=== PATIENT | male | born 1960 | race Caucasian/White ===

== ENCOUNTER 2017-12-08 01:51 | Emergency (ER) | payer MEDICARE, SELFPAY ==
[2017-12-08 01:55] VITALS: BP 163/93; PULSE 114; RESP 24; TEMP 37.2; O2SAT 96; BMI 44.2
--- NOTE | 2017-12-08 02:10 | XR_ITS ---
XR chest 2V HISTORY: ITS.REASON: SOB, COUGH ORDERING PHYSICIAN: Ahmet Palencia MD PATIENT AGE: 57 years COMPARISON: 05/27/2017 FINDINGS: The cardiomediastinal silhouette and pulmonary vascularity are within normal limits. No lobar consolidation or collapse. There is COPD with chronic change. Linear density present in the left lung base consistent with scarring. Left hilum is slightly prominent but is similar compared to previous exams. There is scarring in the anterior clear space. No acute bony anomalies. There is mild kyphosis of the thoracic spine with multiple chronic wedge changes. IMPRESSION: 1. No acute finding. 2. COPD with fibrotic changes as described above
[2017-12-08 02:36] LABS: Basophils # 0.1 K/mm3 (0-0.2); Basophils % 0.9 % (0.1-2.0); Eosinophils % 9.8 % (0.1-12.0); Hematocrit 45.1 % (42.0-52.0); Hemoglobin 15.1 g/dL (14.1-18.0); Lymphocytes # 2.7 K/mm3 (0.7-4.5); Lymphocytes % 27.2 K/mm3 (10-50); Mean Corpuscular HGB Conc 33.5 g/dL (31.8-35.4); Mean Corpuscular Hemoglobin 30.2 pg (27.0-31.2); Mean Platelet Volume 7.4 fl (7.4-10.4); Monocytes # 0.6 K/mm3 (0.1-1.0); Monocytes % 6.2 % (1.7-9.3); Neutrophils # 5.7 K/mm3 (1.8-7.8); Neutrophils % 55.9 % (37.0-80.0); Platelet Count 220 K/mm3 (142-424); Red Blood Count 5.01 M/mm3 (4.60-6.20); Red Cell Distribution Width 14.7 % (11.5-17.5); White Blood Count 10.1 K/mm3 (4.8-10.8)
[2017-12-08 02:52] LABS: Lactic Acid 2.4 mmol/L (0.4-2.0)
[2017-12-08 03:02] LABS: Alanine Aminotransferase 24 U/L (12-78); Albumin Level 3.1 gm/dL (3.4-5.0); Albumin/Globulin Ratio 0.7 (1.1-1.8); Alkaline Phosphatase 126 U/L (46-116); Anion Gap 13.5 mEq/L (5-15); Aspartate Amino Transferase 12 U/L (15-37); Bilirubin,Total 0.5 mg/dL (0.2-1.0); Blood Urea Nitrogen 8 mg/dL (7-18); CKMB Relative Index 0.4 U/L (0-4.0); Calcium 8.4 mg/dL (8.5-10.1); Carbon Dioxide 24 mmol/L (21.0-32.0); Chloride 101 mmol/L (98-107); Creatine Kinase 233 U/L (39-308); Creatine Kinase MB 0.9 mg/ml (0.0-3.6); Creatinine Clearance Estimated 86 mL/min (0-300); Creatinine,Serum 1.13 mg/dL (0.70-1.30); Estimated Glomerular Filt Rate 67 ml/min (>60); GFR (African American) 81 ML/MIN (>60); Globulin 4.2 gm/dl (1.3-3.2); Glucose 376 mg/dL (74-106); Potassium 3.5 mmoL/L (3.5-5.1); Sodium 135 mmol/L (136-145); Total Protein,Serum 7.3 gm/dL (6.4-8.2); Troponin I < 0.02 ng/ml (0.00-0.06)
--- NOTE | 2017-12-08 03:34 | HMH.EDSOB ---
ED Disposition Clinical Impression: Bronchitis Disposition: Home, Self-Care Condition on Discharge: Good Instructions: DI for Cough -- Adult Additional Instructions: see pcp for suzy singh Prescriptions: Azithromycin [Zithromax 250mg tab] 250 mg PO DIRECTED #6 tab Benzonatate [Tessalon Perle 100mg Cap] 100 mg PO TID #30 cap - Critical Care Critical Care Time: No Attestation: On 12/08/17, the high probability of a clinically significant, sudden or life threatening deterioration of the following system(s) required my full and direct attention, intervention and personal management. The time I documented below is in addition to time spent performing reported procedures but includes the following listed in this critical care notation. Medical Decision Making - Medical Records Medical records reviewed: Yes: I reviewed the patient's medical records. Vital Signs: 12/08/17 01:55 Temperature 98.9 F Temperature Source Oral Pulse Rate [Right Brachial] 114 H Respiratory Rate 24 Blood Pressure [Right Arm] 163/93 Blood Pressure Mean [Right Arm] 116 Blood Pressure Source [Right Arm] Automatic Cuff Blood Pressure Position [Right Arm] Supine 02 Sat by Pulse Oximetry 96 Oxygen Delivery Method Room Air - Lab Data Lab results reviewed: Yes: I reviewed the patient's lab results. Lab Results 12/08/17 02:25: WBC 10.1, RBC 5.01, Hgb 15.1, Hct 45.1, MCV 90.0, MCH 30.2, MCHC 33.5, RDW 14.7, Plt Count 220, MPV 7.4, Neut % (Auto) 55.9, Lymph % (Auto) 27.2, [place] % (Auto) 6.2, Eos % (Auto) 9.8, Baso % (Auto) 0.9, Neut # (Auto) 5.7, Lymph # (Auto) 2.7, [place] # (Auto) 0.6, Eos # (Auto) 1.0 H, Baso # (Auto) 0.1 12/08/17 02:25: Sodium 135 L, Potassium 3.5, Chloride 101, Carbon Dioxide 24, Anion Gap 13.5, BUN 8, Creatinine 1.13, Estimated Creat Clear 86, Estimated GFR 67, Est GFR ( Amer) 81, Glucose 376 H, Calcium 8.4 L, Total Bilirubin 0.5, AST 12 L, ALT 24, Alkaline Phosphatase 126 H, Total Creatine Kinase 233, CK-MB (CK-2) 0.9, CK-MB (CK-2) Rel Index 0.4, Troponin I < 0.02, Total Protein 7.3, Albumin 3.1 L, Globulin 4.2 H, Albumin/Globulin Ratio 0.7 L 12/08/17 02:25: Influenza Type A Ag Negative, Influenza Type B Ag Negative 12/08/17 02:25: Lactic Acid 2.4 H Result diagrams: 12/08/17 02:25 12/08/17 02:25 Orders (Tests/Meds): ORDERS Category Date Time Status Chest XR 2 view (NOT portable) [XR chest 2V] Stat Exams 12/08/17 02:10 Taken Blood Culture Stat Micro 12/08/17 02:25 Received ECG Request by /Elise Stat Y 12/08/17 02:08 Ordered - Radiology Data #1 Image(s): Chest Image Reviewed: Yes I reviewed the patient's radiology image Preliminary Findings: Abnormal (cm) - ECG Data Tracing #1 I reviewed this ECG and interpreted as documented below: Normal Sinus Rhythm: Yes Ischemic changes: non-specific ST-T wave changes - Ahsan Inquiry Pt receiving controlled substance: No Resp/SOB HPI - General Chief Complaint: Shortness of Breath/Dyspnea Stated Complaint: SOA,Congested,Fever,Weak Time Seen by Provider: 12/08/17 03:34 Mode of Arrival: Family Vehicle Source of Information: Patient, Medical Record Limitations: No Limitations Description of Symptoms (Recalled from ER Triage Doc. 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
--- NOTE | 2017-12-08 03:37 | ED_ITS ---
ED Disposition Clinical Impression: Bronchitis Disposition: Home, Self-Care Condition on Discharge: Good Instructions: DI for Cough -- Adult Additional Instructions: see pcp for suzy singh Prescriptions: Azithromycin [Zithromax 250mg tab] 250 mg PO DIRECTED #6 tab Benzonatate [Tessalon Perle 100mg Cap] 100 mg PO TID #30 cap - Critical Care Critical Care Time: No Attestation: On 12/08/17, the high probability of a clinically significant, sudden or life threatening deterioration of the following system(s) required my full and direct attention, intervention and personal management. The time I documented below is in addition to time spent performing reported procedures but includes the following listed in this critical care notation. Medical Decision Making - Medical Records Medical records reviewed: Yes: I reviewed the patient's medical records. Vital Signs: 12/08/17 01:55 Temperature 98.9 F Temperature Source Oral Pulse Rate [Right Brachial] 114 H Respiratory Rate 24 Blood Pressure [Right Arm] 163/93 Blood Pressure Mean [Right Arm] 116 Blood Pressure Source [Right Arm] Automatic Cuff Blood Pressure Position [Right Arm] Supine 02 Sat by Pulse Oximetry 96 Oxygen Delivery Method Room Air - Lab Data Lab results reviewed: Yes: I reviewed the patient's lab results. Lab Results 12/08/17 02:25: WBC 10.1, RBC 5.01, Hgb 15.1, Hct 45.1, MCV 90.0, MCH 30.2, MCHC 33.5, RDW 14.7, Plt Count 220, MPV 7.4, Neut % (Auto) 55.9, Lymph % (Auto) 27.2, [place] % (Auto) 6.2, Eos % (Auto) 9.8, Baso % (Auto) 0.9, Neut # (Auto) 5.7 , Lymph # (Auto) 2.7, [place] # (Auto) 0.6, Eos # (Auto) 1.0 H, Baso # (Auto) 0.1 12/08/17 02:25: Sodium 135 L, Potassium 3.5, Chloride 101, Carbon Dioxide 24, Anion Gap 13.5, BUN 8, Creatinine 1.13, Estimated Creat Clear 86, Estimated GFR 67, Est GFR ( Amer) 81, Glucose 376 H, Calcium 8.4 L, Total Bilirubin 0.5 , AST 12 L, ALT 24, Alkaline Phosphatase 126 H, Total Creatine Kinase 233, CK- MB (CK-2) 0.9, CK-MB (CK-2) Rel Index 0.4, Troponin I < 0.02, Total Protein 7.3 , Albumin 3.1 L, Globulin 4.2 H, Albumin/Globulin Ratio 0.7 L 12/08/17 02:25: Influenza Type A Ag Negative, Influenza Type B Ag Negative 12/08/17 02:25: Lactic Acid 2.4 H Result diagrams: 12/08/17 02:25 12/08/17 02:25 Orders (Tests/Meds): ORDERS Category Date Time Status Chest XR 2 view (NOT portable) [XR chest 2V] Stat Exams 12/08/17 02:10 Taken Blood Culture Stat Micro 12/08/17 02:25 Received ECG Request by /Elise Stat Y 12/08/17 02:08 Ordered - Radiology Data #1 Image(s): Chest Image Reviewed: Yes I reviewed the patient's radiology image Preliminary Findings: Abnormal (cm) - ECG Data Tracing #1 I reviewed this ECG and interpreted as documented below: Normal Sinus Rhythm: Yes Ischemic changes: non-specific ST-T wave changes - Ahsan Inquiry Pt receiving controlled substance: No Resp/SOB HPI - General Chief Complaint: Shortness of Breath/Dyspnea Stated Complaint: SOA,Congested,Fever,Weak Time Seen by Provider: 12/08/17 03:34 Mode of Arrival: Family Vehicle Source of Information: Patient, Medical Record Limitations: No Limitations Description of Symptoms (Recalled from ER Triage Doc. 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
[2017-12-08 03:45] VITALS: BP 128/50; PULSE 97; RESP 20; O2SAT 92
[2017-12-08 04:23] VITALS: BP 121/69; PULSE 99; RESP 20; TEMP 37; O2SAT 93
[2017-12-08 05:22] LABS: Reflex Lactic Add Lactic Reflex
== END 2017-12-08 04:31 | disposition home or self-care (01) ==
PROVIDERS: Emergency Provider Emergency Medicine; Family Provider Nurse Practitioner Family
DX: J20.9 Acute bronchitis, unspecified (principal); E11.9 Type 2 diabetes mellitus without complications; Z79.4 Long term (current) use of insulin; Z79.84 Long term (current) use of oral hypoglycemic drugs
CPT/HCPCS: 71046; 80053; 82550; 82553; 83605; 84484; 85025; 87040; 87275; 87276; 93005; 93041; 96365; 99284

== ENCOUNTER → 2017-12-14 15:02 | Outpatient (REF) | payer MEDICARE, SELFPAY ==
[2017-12-14 19:27] LABS: Amphetamine/Metha Screen,Urine Negative ng/mL (<1000); Barbiturates Screen,Urine Negative ng/mL (<200); Benzodiazepines Screen,Urine Negative ng/mL (200); Cannabinoid Screen,Urine Negative ng/mL (<50); Cocaine Screen,Urine Negative ng/g (<300); Methadone Screen,Urine Negative ng/mL (<300); Opiate Screen,Urine Negative ng/mL (<300); Phencyclidine Screen,Urine Negative ng/mL (<25)
== END ==
LOC: LAB 15:02
PROVIDERS: Visit Provider Nurse Practitioner Family
DX: Z79.899 Other long term (current) drug therapy (principal); E11.9 Type 2 diabetes mellitus without complications
CPT/HCPCS: 80305; 82043

== ENCOUNTER → 2018-03-17 16:08 | Outpatient (CLI) | payer MEDICARE, MEDICAID, SELFPAY ==
[2018-03-17 17:41] LABS: Amphetamine/Metha Screen,Urine Negative ng/mL (<1000); Barbiturates Screen,Urine Negative ng/mL (<200); Benzodiazepines Screen,Urine Negative ng/mL (200); Cannabinoid Screen,Urine Negative ng/mL (<50); Cocaine Screen,Urine Negative ng/g (<300); Methadone Screen,Urine Negative ng/mL (<300); Opiate Screen,Urine Negative ng/mL (<300); Phencyclidine Screen,Urine Negative ng/mL (<25)
== END ==
PROVIDERS: Visit Provider Nurse Practitioner Family
DX: Z79.899 Other long term (current) drug therapy (principal)
CPT/HCPCS: 80305

== ENCOUNTER → 2018-05-17 18:30 | Outpatient (CLI) | payer MEDICARE, MEDICAID, SELFPAY | PROVIDERS: Visit Provider Nurse Practitioner Family | DX: E11.59 Type 2 diabetes mellitus with other circulatory complications (principal) ==

== ENCOUNTER → 2018-09-14 18:07 | Outpatient (CLI) | payer MEDICARE, MEDICAID, SELFPAY ==
[2018-09-14 18:51] LABS: Basophils # 0.1 K/mm3 (0-0.2); Basophils % 0.9 % (0.1-2.0); Eosinophils # 0.3 K/mm3 (0.0-0.4); Eosinophils % 3.5 % (0.1-12.0); Hematocrit 47.5 % (42.0-52.0); Hemoglobin 15.2 g/dL (14.1-18.0); Lymphocytes # 2.6 K/mm3 (0.7-4.5); Mean Corpuscular HGB Conc 31.9 g/dL (31.8-35.4); Mean Corpuscular Hemoglobin 30.4 pg (27.0-31.2); Mean Corpuscular Volume 95.4 fl (80-94); Mean Platelet Volume 7.5 fl (7.4-10.4); Monocytes # 0.5 K/mm3 (0.1-1.0); Monocytes % 4.7 % (1.7-9.3); Neutrophils # 6.1 K/mm3 (1.8-7.8); Neutrophils % 63.8 % (37.0-80.0); Platelet Count 317 K/mm3 (142-424); Red Blood Count 4.98 M/mm3 (4.60-6.20); Red Cell Distribution Width 15.1 % (11.5-17.5); White Blood Count 9.5 K/mm3 (4.8-10.8)
[2018-09-14 19:13] LABS: Hemoglobin A1C 6.7 % (0.0-7.0)
[2018-09-14 19:38] LABS: Alanine Aminotransferase 31 U/L (12-78); Albumin Level 3.4 gm/dL (3.4-5.0); Albumin/Globulin Ratio 0.9 (1.1-1.8); Alkaline Phosphatase 110 U/L (46-116); Anion Gap 15.6 mEq/L (5-15); Aspartate Amino Transferase 19 U/L (15-37); Bilirubin,Total 0.4 mg/dL (0.2-1.0); Blood Urea Nitrogen 13 mg/dL (7-18); Calcium 8.8 mg/dL (8.5-10.1); Carbon Dioxide 24 mmol/L (21.0-32.0); Chloride 103 mmol/L (98-107); Chol/HDL Ratio 3.6 (1-3.5); Cholesterol 105 mg/dL (140-200); Creatinine,Serum 0.96 mg/dL (0.70-1.30); Estimated Glomerular Filt Rate 80 ml/min (>60); GFR (African American) 97 ML/MIN (>60); Globulin 3.9 gm/dl (1.3-3.2); Glucose 215 mg/dL (74-106); HDL Cholesterol 29 mg/dL (27-67); LDL Cholesterol 41 mg/dL (0-130); Potassium 4.6 mmoL/L (3.5-5.1); Sodium 138 mmol/L (136-145); T4 (Thyroxine) 8.5 ug/dl (4.7-13.3); Thyroid Stimulating Hormone 1.51 uIU/ml (0.358-3.740); Total Protein,Serum 7.3 gm/dL (6.4-8.2); Triglycerides 176 mg/dL (30-200); VLDL Cholesterol 35 mg/dL (0-40)
== END ==
PROVIDERS: Visit Provider Nurse Practitioner Family
DX: G62.9 Polyneuropathy, unspecified (principal); F32.9 Major depressive disorder, single episode, unspecified; E11.9 Type 2 diabetes mellitus without complications; J40 Bronchitis, not specified as acute or chronic; Z79.4 Long term (current) use of insulin
CPT/HCPCS: 80053; 80061; 82043; 83036; 84436; 84443; 85025

== ENCOUNTER 2018-09-28 21:14 | Inpatient (IN) ==
--- NOTE | 2018-09-29 01:09 | Emergency Department Note ---
ED Disposition Clinical Impression: Embolism and thrombosis of arteries of lower extremity, Diabetes mellitus, insulin dependent (IDDM), controlled Obesity Qualifiers: Obesity type: due to excess calories Obesity classification: adult class 3 (BMI >= 40) Serious obesity comorbidity presence: with serious comorbidity Body mass index: BMI 45.0-49.9 Qualified Code(s): E66.01 - Morbid (severe) obesity due to excess calories; Z68.42 - Body mass index (BMI) 45.0-49.9, adult Disposition: Admitted as Observation Condition on Discharge: Good Referrals: Ahmet Palencia MD [Primary Care Provider] - - Critical Care Critical Care Time: No (obesity) Attestation: On 09/28/18, the high probability of a clinically significant, sudden or life threatening deterioration of the following system(s) required my full and direct attention, intervention and personal management. The time I documented below is in addition to time spent performing reported procedures but includes the following listed in this critical care notation. Medical Decision Making - Medical Records Medical records reviewed: Yes: I reviewed the patient's medical records. - Ahsan Inquiry Pt receiving controlled substance: No Vital Signs: 09/28/18 22:30 Temperature 98.1 F Temperature Source Oral Pulse Rate [Right Brachial] 80 Respiratory Rate 16 Blood Pressure [Right Arm] 140/87 Blood Pressure Mean [Right Arm] 104 Blood Pressure Source [Right Arm] Automatic Cuff Blood Pressure Position [Right Arm] Sitting 02 Sat by Pulse Oximetry 94 L Oxygen Delivery Method Room Air - Lab Data Lab results reviewed: Yes: I reviewed the patient's lab results. Lab Results 09/29/18 01:45: WBC 10.6, RBC 4.54 L, Hgb 14.3, Hct 42.6, MCV 93.8, MCH 31.5 H, MCHC 33.6, RDW 15.4, Plt Count 252, MPV 7.2 L, Neut % (Auto) 55.9, Lymph % (Auto) 32.5, [place] % (Auto) 4.7, Eos % (Auto) 6.0, Baso % (Auto) 0.9, Neut # (Auto) 5.9, Lymph # (Auto) 3.5, [place] # (Auto) 0.5, Eos # (Auto) 0.6 H, Baso # (Auto) 0.1 09/29/18 01:45: PT 10.0, INR 0.97, APTT 26.7 09/29/18 01:45: Sodium 140, Potassium 3.6, Chloride 105, Carbon Dioxide 24, Anio n Gap 14.6, BUN 17, Creatinine 1.12, Estimated Creat Clear 81, Estimated GFR 67, Est GFR ( Amer) 81, Glucose 219 H, Calcium 8.7, Total Bilirubin 0.4, Direct Bilirubin 0.1, Indirect Bilirubin 0.3, AST 12 L, ALT 25, Alkaline Phosphatase 109, Total Protein 7.1, Albumin 3.1 L Result diagrams: 09/29/18 01:45 09/29/18 01:45 Orders (Tests/Meds): ORDERS Category Date Time Status Foot XR right minimum 3 views [XR foot RT min 3V] Stat Exams 09/29/18 01:08 Ta damaris ESR [Erythrocyte Sedimentation Rate] Stat Lab 09/29/18 01:45 Received - Radiology Data #1 Image(s): Foot/Toes Image Reviewed: Yes I reviewed the patient's radiology image Preliminary Findings: Normal/NAD Skin/Abscess/FB HPI - General Chief complaint: Extremity Problem,Nontraumatic Stated complaint: Right foot blue, painful, swollen Time Seen by Provider: 09/29/18 01:05 Mode of Arrival: Family Vehicle Source of Information: Patient, Spouse, Medical Record Limitations: No Limitations Description of Symptoms (Recalled from ER Triage Doc. by RN): Pt has numbness, a nd swelling in his right foot, with discoloration to a few of his toes. - History of Present Illness HPI narrative: acute rt foot discoloration rt foot discovered at 1900 with hx of dm - uncertain to when it occurred - not on blood thinners MD complaint: discoloration Onset (ago): hour(s) Location: RLE Severity: moderate Associated symptoms: denies other symptoms Treatments prior to arrival: none - Related Data Home Medications Medication Instructions Recorded Confirmed calcipotriene 0.005 % topical cream TOPICAL 30 Days #240 g 09/14/18 09/14/18 Previous Rx's Medication Instructions Recorded atorvastatin 40 mg tablet 40 mg PO DAILY #30 tab 09/14/18 blood sugar diagnostic strips See Dose Instructions .ROUTE 09/14/18 .MEDSUPPLY #100 each bupropion HCl SR 150 mg tablet,12 150 mg PO BID #60 each 09/14/18 hr sustained-release fluticasone 100 mcg-vilanterol 25 1 inh PO ONCE #28 each 09/14/18 mcg/dose powder for inhalation gabapentin 800 mg tablet 800 mg PO TID #90 tab 09/14/18 insulin glargine (U-100) 100 40 unit SUB-Q DAILY #15 ml 09/14/18 unit/mL (3 mL) subcutaneous pen lisinopril 10 mg tablet 10 mg PO BID #60 tab 09/14/18 metformin 1,000 mg tablet 1,000 mg PO BID #60 tab 09/14/18 metoprolol tartrate 25 mg tablet 25 mg PO BID #60 tab 09/14/18 sitagliptin 100 mg tablet 100 mg PO DAILY #30 tab 09/14/18 umeclidinium 62.5 mcg/actuation 62.5 mcg INHALATION DAILY #30 each 09/14/18 blister powder for inhalation Allergies Allergy/AdvReac Type Severity Reaction Status Date / Time No Known Allergies Allergy Verified 09/28/18 22:36 [facility] History - Hepatitis A Screen Drug use history?: No High risk sexual behaviors?: No History of sexually transmitted infection?: No Currently employed?: No Childcare worker?: No Do you have indoor plumbing?: Yes Do you have electricity?: Yes Attestation statement:: This patient has been screened for Hepatitis A risk factors. I have reviewed the patient's past medical history: Yes Medical History: Reports:: Diabetes Mellitus Type 2 Denies:: Cancer, Diabetes Mellitus Type 1, Internal Pacemaker, MRSA Laterality Cases: Bilateral: Tonsillectomy Other Surgeries: Yes: Cholecystectomy. No: Pacemaker Amputation: No Fractures: Yes (LEFT ANKLE) Comment: left ankle surgery - Social History Smoking Status: Never smoker Alcohol Intake: current Alcohol Intake Frequency:: holidays/special occasions only Substance Use Type: denies use - Psychiatric History Expresses thoughts of harming self/others: None Suicide Plan Description: No Plan Family Hx:: Cancer, Diabetes, Heart Attack, Hypertension, Hyperlipidemia, Stroke ROS Obtained: Yes All systems reviewed & no additional complaints - Constitutional Constitutional: Denies fever(s) - Eyes Eyes: Denies change in vision - ENT Ears, Nose, Mouth, and Throat: Denies sore throat - Cardiovascular Cardiovascular: Denies chest pain - Gastrointestinal Gastrointestingal: Denies: vomiting - Genitourinary Male Genitourinary: Denies hematuria - Musculoskeletal Musculoskeletal: Denies joint pain, Denies neck pain - Integumentary/Breasts Skin/Breast: Reports change in skin color (ecchymosis rt foot ) - Neurologic Neurologic: Denies seizure-like activity Physical Exam - General General appearance: alert, obese - Head Head exam: normocephalic - Eye Eye exam: Present: PERRL, EOMI. Absent: scleral icterus - ENT ENT exam: Present: mucous membranes dry - Neck Neck exam: Present: trachea midline - Respiratory Respiratory exam: Present: normal lung sounds bilaterally. Absent: respiratory distress - Cardiovascular Cardiovascular exam: Present: regular rate, systolic murmur, +S4 - Abdominal Exam Abdominal exam: Present: soft - Extremities Exam Extremities exam: Present: other (ecchymosis and pallor rt foot 2/3 toes ). Absent: calf tenderness - Neurological Exam Neurological exam: Present: alert, oriented X3, CN II-XII intact - Psychiatric Psychiatric exam: Present: normal affect - Skin Skin exam: Present: other (changes rt foot )
[2018-09-29 01:59] LABS: Basophils # 0.1 K/mm3 (0-0.2); Basophils % 0.9 % (0.1-2.0); Eosinophils # 0.6 K/mm3 (0.0-0.4); Hematocrit 42.6 % (42.0-52.0); Hemoglobin 14.3 g/dL (14.1-18.0); Lymphocytes # 3.5 K/mm3 (0.7-4.5); Lymphocytes % 32.5 % (10-50); Mean Corpuscular HGB Conc 33.6 g/dL (31.8-35.4); Mean Corpuscular Hemoglobin 31.5 pg (27.0-31.2); Mean Corpuscular Volume 93.8 fl (80-94); Mean Platelet Volume 7.2 fl (7.4-10.4); Monocytes # 0.5 K/mm3 (0.1-1.0); Monocytes % 4.7 % (1.7-9.3); Neutrophils # 5.9 K/mm3 (1.8-7.8); Neutrophils % 55.9 % (37.0-80.0); Platelet Count 252 K/mm3 (142-424); Red Blood Count 4.54 M/mm3 (4.60-6.20); Red Cell Distribution Width 15.4 % (11.5-17.5); White Blood Count 10.6 K/mm3 (4.8-10.8)
[2018-09-29 02:09] LABS: Activated Partial Thrombo Time 26.7 seconds (23.6-34.0); INR 0.97 (0.9-1.1)
[2018-09-29 02:18] LABS: Albumin Level 3.1 gm/dL (3.4-5.0); Anion Gap 14.6 mEq/L (5-15); Bilirubin,Direct 0.1 mg/dL (0.0-0.2); Bilirubin,Indirect 0.3 mg/dL (0.0-0.9); Bilirubin,Total 0.4 mg/dL (0.2-1.0); Calcium 8.7 mg/dL (8.5-10.1); Potassium 3.6 mmoL/L (3.5-5.1); Total Protein,Serum 7.1 gm/dL (6.4-8.2)
--- NOTE | 2018-09-29 08:10 | Pharmacy Consult Notes ---
[facility] Pharmacy VTE Monitoring - Patient Demographics Admission date: 09/29/18 Report Date: 09/29/18 Time: 08:10 Allergies/Adverse Reactions: Patient Allergies No Known Allergies Allergy (Verified 09/28/18 22:36) Height: 1.88 m Weight: 167.432 kg Patient Problems: Current Active Problems Embolism and thrombosis of arteries of lower extremity (Acute) Obesity (Acute) Diabetes mellitus, insulin dependent (IDDM), controlled (Acute) - VTE Risk Labs: VTE Related Lab Results Hgb 14.3 g/dL (14.1-18.0) 09/29/18 01:45 Hct 42.6 % (42.0-52.0) 09/29/18 01:45 Plt Count 252 K/mm3 (142-424) 09/29/18 01:45 PT 10.0 seconds (9.4-11.8) 09/29/18 01:45 INR 0.97 (0.9-1.1) 09/29/18 01:45 APTT 26.7 seconds (23.6-34.0) 09/29/18 01:45 BUN 17 mg/dL (7-18) 09/29/18 01:45 Creatinine 1.12 mg/dL (0.70-1.30) 09/29/18 01:45 Estimated Creat Clear 81 mL/min (50-200) 09/29/18 01:45 VTE Score: 6 VTE Risk Level: Moderate Risk - Prophylaxis VTE Prophylaxis Ordered?: Yes Types of VTE Prophylaxis: Pharmacological Pharmacologic Type: Heparin (HEPARIN DRIP) - VTE Diagnosis Confirmed Treatment or plan recommended: Continue Current Treatment
--- NOTE | 2018-09-29 08:37 | Consult Report ---
History of Present Illness Consult date: 09/29/18 Requesting physician: Ahmet Palencia Chief complaint: Acute right foot pain Additional Medical History:: 1. Coronary artery disease A. Abnormal Myoview stress test September 2015 B. Cardiac catheterization 09/25/2015 revealing nonflow limiting coronary artery disease with mild vascular ectasia in the left anterior descending and dominant circumflex artery. Slow flow down the RIGHT coronary artery suggesting endothelial dysfunction. Borderline elevated LVEDP likely consistent with obesity. Normal ejection fraction medical therapy recommended. C. Cardiac cath, 05/28/2017, 1. Mild nonocclusive coronary artery disease with a small degree of mild vascular ectasia which is clinically insignificant 2. Preserved ejection fraction 3. Moderate to severely elevated LVEDP (30-35 mm Hg) 2. Diabetes mellitus 3. Obesity 4. Chronic obstructive pulmonary disease without history of tobacco use. 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 CT of chest, 05/2017, 1. No acute finding. 2. No evidence of pulmonary embolus or aortic aneurysm. 3. Atelectatic or fibrotic changes in the upper and lower lobes 5. Hyperlipidemia 6. Hypertension History of present illness: 58-year-old white male admitted through the emergency department for acute onset of right foot pain with progression to include pain below the knee. Patient denies any history of trauma or prolonged sitting. No recent fever, chills or infection. ER evaluation revealed bluish discoloration of the first 3 toes. Patient was started on heparin therapy. He does have palpable pulses of the posterior tibial and dorsalis pedis areas. Cardiology consulted for evaluation recommendations. [facility] History Medical History: Reports:: Diabetes Mellitus Type 2 Denies:: Cancer, Diabetes Mellitus Type 1, Internal Pacemaker, MRSA Other Medical History: Reports: Arthritis Laterality Cases: Bilateral: Tonsillectomy Other Surgeries: Yes: Cholecystectomy. No: Pacemaker Amputation: No Fractures: Yes (LEFT ANKLE) - *Social History Smoking Status: Never smoker Alcohol Intake: never Alcohol Intake Frequency:: holidays/special occasions only Substance Use Type: denies use Occupational Status: retired Housing: house Household Members: spouse, family - Psychiatric History Expresses thoughts of harming self/others: None Suicide Plan Description: No Plan *Family Hx:: Cancer, Diabetes, Heart Attack, Hypertension, Hyperlipidemia, Stroke Meds Home Medications Medication Instructions Recorded Confirmed Type calcipotriene 0.005 % topical cream 1 applicatio TOPICAL DAILY 30 Days 09/14/18 09/29/18 History #240 g Albuterol Sulfate [Albuterol 1.25 mg IH TID 09/29/18 09/29/18 History 0.042% 1.25mg/3mL neb] Fluticasone/Vilanterol [Breo 1 puff IH DAILY 09/29/18 09/29/18 History Ellipta 100-25 Mcg INH] Gabapentin [Neurontin 800mg Tab] 800 mg PO TID 09/29/18 09/29/18 History Allergies Allergy/AdvReac Type Severity Reaction Status Date / Time No Known Allergies Allergy Verified 09/28/18 22:36 Review of Systems - *Cardiovascular Denies chest pain, Denies shortness of breath - *Respiratory Reports shortness of breath with activity, Denies shortness of breath - *Gastrointestinal Denies abdominal pain, Denies nausea - *Genitourinary Denies blood in urine - *Musculoskeletal Denies back pain - *Neurologic Denies seizure-like activity Exam Vital signs and Labs for Last 24 Hours: Temp Pulse Resp BP Pulse Ox 98.3 F 87 16 127/72 94 L 09/29/18 04:14 09/29/18 04:14 09/29/18 04:14 09/29/18 04:14 09/29/18 04:50 Laboratory Results - last 24 hr 09/29/18 01:45: WBC 10.6, RBC 4.54 L, Hgb 14.3, Hct 42.6, MCV 93.8, MCH 31.5 H, MCHC 33.6, RDW 15.4, Plt Count 252, MPV 7.2 L, Neut % (Auto) 55.9, Lymph % (Auto) 32.5, [place] % (Auto) 4.7, Eos % (Auto) 6.0, Baso % (Auto) 0.9, Neut # (Auto) 5.9, Lymph # (Auto) 3.5, [place] # (Auto) 0.5, Eos # (Auto) 0.6 H, Baso # (Auto) 0.1 09/29/18 01:45: PT 10.0, INR 0.97, APTT 26.7 09/29/18 01:45: Sodium 140, Potassium 3.6, Chloride 105, Carbon Dioxide 24, Anion Gap 14.6, BUN 17, Creatinine 1.12, Estimated Creat Clear 81, Estimated GFR 67, Est GFR ( Amer) 81, Glucose 219 H, Calcium 8.7, Total Bilirubin 0.4, Direct Bilirubin 0.1, Indirect Bilirubin 0.3, AST 12 L, ALT 25, Alkaline Phosphatase 109, Total Protein 7.1, Albumin 3.1 L 09/29/18 01:45: ESR 25 H 09/29/18 07:02: POC Glucose 169 H I & O for Last 24 hours: Intake & Output 09/26/18 09/27/18 09/28/18 09/29/18 11:59 11:59 11:59 11:59 Weight 369 lb 2 oz - *Routine Neck Exam Present: supple. Absent: JVD, carotid bruit - *Routine Respiratory Exam Present: CTA bilaterally. Absent: accessory muscle use, rales, rhonchi, wheezes - *Routine Cardiovascular Exam Present: RRR. Absent: murmur, gallop, rubs - *Routine Abdominal Exam Present: soft. Absent: tenderness, distended, guarding - *Routine Extremities Exam Present: edema. Absent: calf tenderness Comments: Mild edema. DP/PT pulses noted bilaterally with spotty, bluish discoloration of the first 3 toes of the right foot. - *Routine Neurological Exam Present: alert, oriented X3, moving all extremities Assessment and Plan (1) Diabetes mellitus, insulin dependent (IDDM), controlled Current visit: Yes Status: Acute Category: Medical Code(s): E11.9 - Type 2 diabetes mellitus without complications; Z79.4 - senior living (current) use of insulin (2) Embolism and thrombosis of arteries of lower extremity Current visit: Yes Status: Acute Category: Medical Code(s): I74.3 - Embolism and thrombosis of arteries of the lower extremities (3) Obesity Current visit: Yes Status: Acute Qualifiers: Obesity type: due to excess calories Obesity classification: adult class 3 (BMI >= 40) Serious obesity comorbidity presence: with serious comorbidity Body mass index: BMI 45.0-49.9 Qualified Code(s): E66.01 - Morbid (severe) obesity due to excess calories; Z68.42 - Body mass index (BMI) 45.0-49.9, adult Category: Medical Code(s): E66.9 - Obesity, unspecified - Assessment and plan all Dx Assessment and Plan for all problems:: 1. As long as patient has palpable pulses, continue IV heparin with plans to switch to PO anticoagulation after arteriogram. 2. Will plan to perform RLE arteriogram prior to discharge.
--- NOTE | 2018-09-29 13:51 | History & Physical Report ---
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 No: Pacemaker Amputation: No Fractures: Yes (LEFT ANKLE) - *Social History Smoking Status: Never smoker Alcohol Intake: never Alcohol Intake Frequency:: holidays/special occasions only Substance Use Type: denies use Occupational Status: retired Housing: house Household Members: spouse, family - Psychiatric History Expresses thoughts of harming self/others: None Suicide Plan Description: No Plan *Family Hx:: Cancer, Diabetes, Heart Attack, Hypertension, Hyperlipidemia, Stroke Review of Systems - Review of Systems Review of systems:: pertinent systems reviewed and negative unless documented below - Constitutional Denies fever(s) - Eyes Denies change in vision - ENT Denies headache(s) - *Cardiovascular Denies chest pain, Denies shortness of breath - *Respiratory Denies cough - *Gastrointestinal Denies abdominal pain - *Genitourinary Denies blood in urine - *Musculoskeletal Reports other (acute changes rt foot ), Denies joint pain, Denies joint swelling - Integumentary/Breasts Reports other (dec sensation and pulse rt 2/3 toes with no other acute changes ) - *Neurologic Denies seizure-like activity - Psychiatric Denies anxiety Meds Home Medications Medication Instructions Recorded Confirmed Type calcipotriene 0.005 % topical cream 1 applicatio TOPICAL DAILY 30 Days 09/14/18 09/29/18 History #240 g Albuterol Sulfate [Albuterol 1.25 mg IH TID 09/29/18 09/29/18 History 0.042% 1.25mg/3mL neb] Fluticasone/Vilanterol [Breo 1 puff IH DAILY 09/29/18 09/29/18 History Ellipta 100-25 Mcg INH] Gabapentin [Neurontin 800mg Tab] 800 mg PO TID 09/29/18 09/29/18 History Allergies Allergy/AdvReac Type Severity Reaction Status Date / Time No Known Allergies Allergy Verified 09/28/18 22:36 Exam Vital signs and Labs for Last 24 Hours: Temp Pulse Resp BP Pulse Ox 98.6 F 66 18 119/65 94 L 09/29/18 08:00 09/29/18 08:00 09/29/18 08:00 09/29/18 08:00 09/29/18 08:00 Laboratory Results - last 24 hr 09/29/18 01:45: WBC 10.6, RBC 4.54 L, Hgb 14.3, Hct 42.6, MCV 93.8, MCH 31.5 H, MCHC 33.6, RDW 15.4, Plt Count 252, MPV 7.2 L, Neut % (Auto) 55.9, Lymph % (Auto) 32.5, [place] % (Auto) 4.7, Eos % (Auto) 6.0, Baso % (Auto) 0.9, Neut # (Auto) 5.9, Lymph # (Auto) 3.5, [place] # (Auto) 0.5, Eos # (Auto) 0.6 H, Baso # (Auto) 0.1 09/29/18 01:45: PT 10.0, INR 0.97, APTT 26.7 09/29/18 01:45: Sodium 140, Potassium 3.6, Chloride 105, Carbon Dioxide 24, Anion Gap 14.6, BUN 17, Creatinine 1.12, Estimated Creat Clear 81, Estimated GFR 67, Est GFR ( Amer) 81, Glucose 219 H, Calcium 8.7, Total Bilirubin 0.4, Direct Bilirubin 0.1, Indirect Bilirubin 0.3, AST 12 L, ALT 25, Alkaline Phosphatase 109, Total Protein 7.1, Albumin 3.1 L 09/29/18 01:45: ESR 25 H 09/29/18 07:02: POC Glucose 169 H 09/29/18 09:09: APTT 35.1 H D I & O for Last 24 hours: Intake & Output 09/27/18 09/28/18 09/29/18 09/30/18 11:59 11:59 11:59 11:59 Intake Total 63 / 63 Balance 63 / 63 Weight 369 lb 2 oz - Constitutional no acute distress, obese - *Routine HEENT Exam Head: Present: normocephalic Eye: Present: EOMI, PERRL ENT: Present: mucous membranes dry - *Routine Neck Exam Present: supple. Absent: JVD - *Routine Respiratory Exam Present: CTA bilaterally - *Routine Cardiovascular Exam Present: RRR, murmur - *Routine Abdominal Exam Present: soft - *Routine Extremities Exam Absent: calf tenderness Comments: tender rt foot with ecchymosis and dec flow to 2/3 toes with pain - *Routine Skin Exam Present: intact Comments: see above - *Routine Neurological Exam Present: alert, oriented X3, CN II-XII intact - Routine Psychiatric Exam Present: normal affect Assessment and Plan (1) Diabetes mellitus, insulin dependent (IDDM), controlled Current visit: Yes Status: Acute Category: Medical Code(s): E11.9 - Type 2 diabetes mellitus without complications; 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 (2) Embolism and thrombosis of arteries of lower extremity Current visit: Yes Status: Acute Category: Medical Code(s): I74.3 - Embolism and thrombosis of arteries of the lower extremities (3) Obesity Current visit: Yes Status: Acute Qualifiers: Obesity type: due to excess calories Obesity classification: adult class 3 (BMI >= 40) Serious obesity comorbidity presence: with serious comorbidity Body mass index: BMI 45.0-49.9 Qualified Code(s): E66.01 - Morbid (severe) obesity due to excess calories; Z68.42 - Body mass index (BMI) 45.0-49.9, adult Category: Medical Code(s): E66.9 - Obesity, unspecified
--- NOTE | 2018-09-30 09:20 | Progress Note ---
Internal Medicine - PN: Subj *Date: 09/30/18 *Time: 09:17 Interval history: doing better and rt foot still with changes but improved - discussed with pt and card Exam Vital signs and Labs for Last 24 Hours: Temp Pulse Resp BP Pulse Ox 97.4 F L 65 16 160/80 H 92 L 09/30/18 08:00 09/30/18 08:00 09/30/18 08:00 09/30/18 08:00 09/30/18 08:00 Laboratory Results - last 24 hr 09/29/18 09:09: APTT 35.1 H D 09/29/18 11:35: POC Glucose 140 H 09/29/18 15:31: APTT 43.4 H D 09/29/18 16:32: POC Glucose 112 H 09/29/18 20:57: POC Glucose 148 H 09/29/18 22:39: APTT 47.8 H D 09/30/18 05:30: APTT 56.5 H* D 09/30/18 05:56: POC Glucose 138 H I & O for Last 24 hours: Intake & Output 09/27/18 09/28/18 09/29/18 09/30/18 11:59 11:59 11:59 11:59 Intake Total 63 / 63 1500 / 1500 Balance 63 / 63 1500 / 1500 Weight 369 lb 2 oz 368 lb 7 oz - Constitutional no acute distress, obese - *Routine HEENT Exam Head: Present: normocephalic Eye: Present: EOMI, PERRL ENT: Present: mucous membranes dry - *Routine Neck Exam Absent: JVD - *Routine Respiratory Exam Absent: respiratory distress - *Routine Cardiovascular Exam Present: RRR, murmur - *Routine Abdominal Exam Present: soft - *Routine Extremities Exam Present: pulses intact Comments: still changes consistent with art insuff but improved - *Routine Skin Exam Present: intact - *Routine Neurological Exam Present: alert, oriented X3, CN II-XII intact - Routine Psychiatric Exam Present: normal affect Assessment and Plan (1) Diabetes mellitus, insulin dependent (IDDM), controlled Current visit: Yes Status: Acute Category: Medical Code(s): E11.9 - Type 2 diabetes mellitus without complications; 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 (2) Embolism and thrombosis of arteries of lower extremity Current visit: Yes Status: Acute Category: Medical Code(s): I74.3 - Embolism and thrombosis of arteries of the lower extremities (3) Obesity Current visit: Yes Status: Acute Qualifiers: Obesity type: due to excess calories Obesity classification: adult class 3 (BMI >= 40) Serious obesity comorbidity presence: with serious comorbidity Body mass index: BMI 45.0-49.9 Qualified Code(s): E66.01 - Morbid (severe) obesity due to excess calories; Z68.42 - Body mass index (BMI) 45.0-49.9, adult Category: Medical Code(s): E66.9 - Obesity, unspecified
--- NOTE | 2018-10-01 09:13 | Progress Note ---
Internal Medicine - PN: Subj *Date: 10/01/18 *Time: 09:06 Interval history: doing better with rt foot but has more generalized neuropathic pain - will change pain meds Exam Vital signs and Labs for Last 24 Hours: Temp Pulse Resp BP Pulse Ox 98.0 F 78 20 175/93 H 98 10/01/18 08:00 10/01/18 08:00 10/01/18 08:00 10/01/18 08:00 10/01/18 08:02 Laboratory Results - last 24 hr 09/30/18 12:06: POC Glucose 153 H 09/30/18 12:13: APTT 48.0 H D 09/30/18 16:19: POC Glucose 132 H 09/30/18 19:20: APTT 54.6 H* D 09/30/18 20:52: POC Glucose 133 H 10/01/18 02:10: APTT 54.7 H* 10/01/18 06:21: POC Glucose 175 H 10/01/18 07:59: APTT 57.9 H* I & O for Last 24 hours: Intake & Output 09/28/18 09/29/18 09/30/18 10/01/18 11:59 11:59 11:59 11:59 Intake Total 63 / 63 1500 / 1500 1560 / 1560 Balance 63 / 63 1500 / 1500 1560 / 1560 Weight 369 lb 2 oz 368 lb 7 oz 371 lb 5 oz - Constitutional no acute distress, obese - *Routine HEENT Exam Head: Present: normocephalic Eye: Present: EOMI, PERRL ENT: Present: mucous membranes dry - *Routine Neck Exam Absent: JVD - *Routine Respiratory Exam Absent: respiratory distress - *Routine Cardiovascular Exam Present: RRR - *Routine Abdominal Exam Present: soft - *Routine Extremities Exam Comments: lt foot ok and rt foot improved - *Routine Skin Exam Present: intact - *Routine Neurological Exam Present: alert, CN II-XII intact - Routine Psychiatric Exam Present: normal affect Assessment and Plan (1) Diabetes mellitus, insulin dependent (IDDM), controlled Current visit: Yes Status: Acute Category: Medical Code(s): E11.9 - Type 2 diabetes mellitus without complications; Z79.4 - halfway (current) use of insulin (2) Embolism and thrombosis of arteries of lower extremity Current visit: Yes Status: Acute Category: Medical Code(s): I74.3 - Embolism and thrombosis of arteries of the lower extremities (3) Obesity Current visit: Yes Status: Acute Qualifiers: Obesity type: due to excess calories Obesity classification: adult class 3 (BMI >= 40) Serious obesity comorbidity presence: with serious comorbidity Body mass index: BMI 45.0-49.9 Qualified Code(s): E66.01 - Morbid (severe) obesity due to excess calories; Z68.42 - Body mass index (BMI) 45.0-49.9, adult Category: Medical Code(s): E66.9 - Obesity, unspecified (4) Neuropathy Current visit: No Status: Chronic Category: Medical Code(s): G62.9 - Polyneuropathy, unspecified
[2018-10-01 09:17] LABS: Basophils # 0.1 K/mm3 (0-0.2); Basophils % 0.7 % (0.1-2.0); Eosinophils # 0.3 K/mm3 (0.0-0.4); Eosinophils % 4.9 % (0.1-12.0); Hematocrit 40.3 % (42.0-52.0); Hemoglobin 12.8 g/dL (14.1-18.0); Lymphocytes # 2.5 K/mm3 (0.7-4.5); Lymphocytes % 35.5 % (10-50); Mean Corpuscular HGB Conc 31.9 g/dL (31.8-35.4); Mean Corpuscular Hemoglobin 30.8 pg (27.0-31.2); Mean Corpuscular Volume 96.7 fl (80-94); Mean Platelet Volume 7.4 fl (7.4-10.4); Monocytes # 0.4 K/mm3 (0.1-1.0); Monocytes % 4.9 % (1.7-9.3); Neutrophils # 3.8 K/mm3 (1.8-7.8); Platelet Count 195 K/mm3 (142-424); Red Blood Count 4.16 M/mm3 (4.60-6.20); Red Cell Distribution Width 15.3 % (11.5-17.5); White Blood Count 7.1 K/mm3 (4.8-10.8)
[2018-10-01 09:20] LABS: Anion Gap 8.4 mEq/L (5-15); Potassium 4.4 mmoL/L (3.5-5.1)
[2018-10-01 09:31] LABS: Calcium 7.7 mg/dL (8.5-10.1)
--- NOTE | 2018-10-01 10:43 | Pharmacy Consult Notes ---
[facility] Pharmacy Heparin Dosing - Demographic Data Admission date:: 09/29/18 Date: 10/01/18 Time: 10:40 Allergies/Adverse Reactions: Allergies Allergy/AdvReac Type Severity Reaction Status Date / Time No Known Allergies Allergy Verified 09/28/18 22:36 Height: 1.88 m Weight: 167.4 kg - Indication Medication therapy:: Heparin Current Indications:: EMBOLI, RLE CVA?: No Bleeding problem?: No Kidney disease?: No NH?: No Desired PTT range:: 50-70 seconds - Labs Anticoagulation Lab Results:: 10/01/18 07:59 Hgb 12.8 L Hct 40.3 L Plt Count 195 - Monitoring Dose Monitor 1 Date: 09/29/18 Time: 03:59 PTT Result:: 26.7 Infusion Rate:: 26 ML/HR Comment:: BASELINE PTT 5000 UNITS BOLUS Dose Monitor 2 Date: 09/29/18 Time: 09:00 PTT Result:: 35.1 Infusion Rate:: 33 ML/HR (1650 UNITS/HR Comment:: 5000 UNIT BOLUS [id number] Dose Monitor 3 Date: 09/29/18 Time: 15:30 PTT Result:: 43.4 Infusion Rate:: 38 ML/HR (1900 UNITS/HR) Dose Monitor 4 Date: 09/29/18 Time: 22:30 PTT Result:: 47.8 Infusion Rate:: 40 ML/HR (2000 UNITS/HR) Dose Monitor 5 Date: 09/30/18 Time: 05:30 PTT Result:: 56.5 Infusion Rate:: 40 ML/HR Dose Monitor 6 Date: 09/30/18 Time: 12:00 PTT Result:: 48.0 Infusion Rate:: 43 ML/HR (2150 UNITS/HR) Dose Monitor 7 Date: 09/30/18 Time: 19:00 PTT Result:: 54.6 Infusion Rate:: 43 ML/HR Dose Monitor 8 Date: 10/01/18 Time: 02:00 PTT Result:: 54.7 Infusion Rate:: 43 ML/HR Dose Monitor 9 Date: 10/01/18 Time: 08:00 PTT Result:: 57.9 Infusion Rate:: 43 ML/HR Comment:: [id number] Dose Monitor 10 Date: 10/01/18 Time: 20:00 PTT Result:: 51.3 Infusion Rate:: 43 ML/HR Dose Monitor 11 Date: 10/02/18 Time: 07:00 PTT Result:: 53.9 Infusion Rate:: 43 ML/HR - Core Measures Is INR > or = 2 at discharge?: No Most Recent Labs:: Laboratory Results - last 24 hr 09/30/18 12:06: POC Glucose 153 H 09/30/18 12:13: APTT 48.0 H D 09/30/18 16:19: POC Glucose 132 H 09/30/18 19:20: APTT 54.6 H* D 09/30/18 20:52: POC Glucose 133 H 10/01/18 02:10: APTT 54.7 H* 10/01/18 06:21: POC Glucose 175 H 10/01/18 07:59: APTT 57.9 H* 10/01/18 07:59: WBC 7.1 D, RBC 4.16 L, Hgb 12.8 L, Hct 40.3 L, MCV 96.7 H, MCH 30.8, MCHC 31.9, RDW 15.3, Plt Count 195, MPV 7.4, Neut % (Auto) 54.0, Lymph % (Auto) 35.5, [place] % (Auto) 4.9, Eos % (Auto) 4.9, Baso % (Auto) 0.7, Neut # (Auto) 3.8, Lymph # (Auto) 2.5, [place] # (Auto) 0.4, Eos # (Auto) 0.3, Baso # (Auto) 0.1 10/01/18 07:59: Sodium 139, Potassium 4.4 D, Chloride 106, Carbon Dioxide 29 D , Anion Gap 8.4, BUN 10 D, Creatinine 1.20, Estimated Creat Clear 78, Estimated GFR 62, Est GFR ( Amer) 75, Glucose 204 H, Calcium 7.7 L D If INR was < than 2.0 why was therapy stopped?: PATIENT DOES NOT HAVE A CLOT Were Heparin and Warfarin started on the same day?: No If not, why?: PATIENT DOES NOT HAVE A CLOT Comments:: ANTICOAGULATION NOT NEEDED AT DISCHARGE
[2018-10-02 07:18] LABS: INR 0.99 (0.9-1.1); Prothrombin Time 10.2 seconds (9.4-11.8)
[2018-10-02 07:24] LABS: Activated Partial Thrombo Time 53.9 seconds (23.6-34.0)
--- NOTE | 2018-10-02 08:24 | Progress Note ---
Subjective Date: 10/02/18 Time: 08:18 Principal diagnosis: RLE arterial thrombus Interval history: 58 yo WM in bed in NAD. Continues on IV heparin. Some discomfort below the knee. Pulses still palpable and foot is warm. Exam Vital signs and Labs for Last 24 Hours: Temp Pulse Resp BP Pulse Ox 97.9 F 80 19 129/65 95 10/02/18 04:00 10/02/18 04:00 10/02/18 04:00 10/02/18 04:00 10/02/18 07:46 Laboratory Results - last 24 hr 10/01/18 07:59: APTT 57.9 H* 10/01/18 07:59: WBC 7.1 D, RBC 4.16 L, Hgb 12.8 L, Hct 40.3 L, MCV 96.7 H, MCH 30.8, MCHC 31.9, RDW 15.3, Plt Count 195, MPV 7.4, Neut % (Auto) 54.0, Lymph % (Auto) 35.5, [place] % (Auto) 4.9, Eos % (Auto) 4.9, Baso % (Auto) 0.7, Neut # (Auto) 3.8, Lymph # (Auto) 2.5, [place] # (Auto) 0.4, Eos # (Auto) 0.3, Baso # (Auto) 0.1 10/01/18 07:59: Sodium 139, Potassium 4.4 D, Chloride 106, Carbon Dioxide 29 D , Anion Gap 8.4, BUN 10 D, Creatinine 1.20, Estimated Creat Clear 78, Estimated GFR 62, Est GFR ( Amer) 75, Glucose 204 H, Calcium 7.7 L D 10/01/18 10:52: POC Glucose 177 H 10/01/18 16:13: POC Glucose 147 H 10/01/18 20:17: POC Glucose 211 H 10/01/18 20:30: APTT 51.3 H* D 10/02/18 06:16: POC Glucose 182 H 10/02/18 06:54: PT 10.2, INR 0.99, APTT 53.9 H* I & O for Last 24 hours: Intake & Output 09/29/18 09/30/18 10/01/18 10/02/18 11:59 11:59 11:59 11:59 Intake Total 63 / 63 1500 / 1500 1560 / 1560 720 / 720 Balance 63 / 63 1500 / 1500 1560 / 1560 720 / 720 Weight 369 lb 2 oz 368 lb 7 oz 369 lb 0.861 oz 378 lb 8 oz - *Routine Respiratory Exam Present: CTA bilaterally. Absent: accessory muscle use, rales, rhonchi, wheezes - *Routine Cardiovascular Exam Present: RRR. Absent: murmur, gallop, rubs - *Routine Extremities Exam Present: edema. Absent: calf tenderness - *Routine Neurological Exam Present: alert, oriented X3, moving all extremities Progress Note: A&P (1) Diabetes mellitus, insulin dependent (IDDM), controlled Status: Acute Current Visit: Yes (2) Embolism and thrombosis of arteries of lower extremity Status: Acute Current Visit: Yes (3) Obesity Status: Acute Current Visit: Yes (4) Neuropathy Status: Chronic Current Visit: No
--- NOTE | 2018-10-02 15:12 | Discharge Summary ---
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 Abnormal Myoview stress test September 2015 B. Cardiac catheterization 09/25/2015 revealing nonflow limiting coronary artery disease with mild vascular ectasia in the left anterior descending and dominant circumflex artery. Slow flow down the RIGHT coronary artery suggesting endothelial dysfunction. Borderline elevated LVEDP likely consistent with obesity. Normal ejection fraction medical therapy recommended. C. Cardiac cath, 05/28/2017, 1. Mild nonocclusive coronary artery disease with a small degree of mild vascular ectasia which is clinically insignificant 2. Preserved ejection fraction 3. Moderate to severely elevated LVEDP (30-35 mm Hg) 2. Diabetes mellitus 3. Obesity 4. Chronic obstructive pulmonary disease without history of tobacco use. 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 CT of chest, 05/2017, 1. No acute finding. 2. No evidence of pulmonary embolus or aortic aneurysm. 3. Atelectatic or fibrotic changes in the upper and lower lobes 5. Hyperlipidemia 6. Hypertension History of present illness: 58-year-old white male admitted through the emergency department for acute onset of right foot pain with progression to include pain below the knee. Patient denies any history of trauma or prolonged sitting. No recent fever, chills or infection. ER evaluation revealed bluish discoloration of the first 3 toes. Patient was started on heparin therapy. He does have palpable pulses of the posterior tibial and dorsalis pedis areas. Cardiology consulted for evaluation recommendations. pt has neuropathy pain and required pain meds - his labs were stable - he underwent vascular study-GIOGRAPHIC RESULTS: The right common internal and external iliac arteries are normal The right common femoral artery right profunda femoris artery and superficial femoral artery are normal The right popliteal artery is normal The anterior tibialis artery posterior tibialis artery and peroneal artery are widely patent. There is three-vessel runoff to the foot IMPRESSION: 1. Normal right-sided lower extremity arterial vasculature PLAN: 1. It appears as the patient may have sustained trauma to the right foot rather than arterial thrombosis. At this time I would not recommend anticoagulation. 2. Supportive care will d/c and do close follow up Objective Vital signs: Temp Pulse Resp BP Pulse Ox 98.2 F 77 20 148/87 H 94 L 10/02/18 14:45 10/02/18 14:45 10/02/18 14:45 10/02/18 14:45 10/02/18 14:45 no acute distress, obese - *Routine HEENT Exam Head: Present: normocephalic Eye: Present: EOMI, PERRL ENT: Present: mucous membranes dry - *Routine Neck Exam Present: supple - *Routine Respiratory Exam Absent: respiratory distress - *Routine Cardiovascular Exam Present: RRR - *Routine Abdominal Exam Present: soft - *Routine Extremities Exam Absent: calf tenderness Comments: rt foot much improved - *Routine Skin Exam Present: intact - *Routine Neurological Exam Present: alert, oriented X3, CN II-XII intact - Routine Psychiatric Exam Present: normal affect Results Labs on day of discharge: Labs from last 24 hours 10/02/18 10/02/18 10/02/18 10:52 06:54 06:16 PT 10.2 INR 0.99 APTT 53.9 H* POC Glucose 197 H 182 H 10/01/18 10/01/18 10/01/18 20:30 20:17 16:13 PT INR APTT 51.3 H* D POC Glucose 211 H 147 H DS: Diagnosis - Discharge Diagnosis (1) Diabetes mellitus, insulin dependent (IDDM), controlled Status: Acute (2) Embolism and thrombosis of arteries of lower extremity Status: Acute (3) Obesity Status: Acute (4) Neuropathy Status: Chronic Discharge Plan - Patient Discharge Instructions ACTIVITY: Continue current activity DIET: continue same diet Patient Instructions: DI for Foot Pain - Follow up Plan Disposition: Home, Self-Correction Medications: Home Medications Medication Instructions Recorded Confirmed Type calcipotriene 0.005 % topical cream 1 applicatio TOPICAL DAILY 30 Days 09/14/18 09/29/18 History #240 g Albuterol Sulfate [Albuterol 1.25 mg IH TID 09/29/18 09/29/18 History 0.042% 1.25mg/3mL neb] Fluticasone/Vilanterol [Breo 1 puff IH DAILY 09/29/18 09/29/18 History Ellipta 100-25 Mcg INH] Gabapentin [Neurontin 800mg Tab] 800 mg PO TID 09/29/18 09/29/18 History Prescriptions/Medication Reconciliation: New Gabapentin [Neurontin 400mg cap] 800 mg PO TID capsule Continue insulin glargine (U-100) 100 unit/mL (3 mL) subcutaneous pen 40 unit SUB-Q DAILY #15 ml lisinopril 10 mg tablet 10 mg PO BID #60 tab metformin 1,000 mg tablet 1,000 mg PO BID #60 tab metoprolol tartrate 25 mg tablet 25 mg PO BID #60 tab sitagliptin 100 mg tablet 100 mg PO DAILY #30 tab umeclidinium 62.5 mcg/actuation blister powder for inhalation 62.5 mcg INHALATION DAILY #30 each bupropion HCl SR 150 mg tablet,12 hr sustained-release 150 mg PO BID #60 each calcipotriene 0.005 % topical cream 1 applicatio TOPICAL DAILY 30 Days #240 g atorvastatin 40 mg tablet 40 mg PO DAILY #30 tab Albuterol Sulfate [Albuterol 0.042% 1.25mg/3mL neb] 1.25 mg IH TID Gabapentin [Neurontin 800mg Tab] 800 mg PO TID Fluticasone/Vilanterol [Breo Ellipta 100-25 Mcg INH] 1 puff IH DAILY
== END 2018-10-02 20:34 | disposition home or self-care (01) | DRG 300 ==
LOC: ER 21:14 → 2ND 21:14
PROVIDERS: ADMIT Emergency Medicine; ATTEND Emergency Medicine
CPT/HCPCS: 36245; 36415; 73630; 75710; 80048; 80076; 82962; 85025; 85610; 85651; 85730; 96365; 96375; 99152; 99284; C1725; C1760; C1769; J1644; J2405

== ENCOUNTER → 2018-11-08 15:13 | Outpatient (CLI) | payer MEDICARE, MEDICAID, SELFPAY ==
--- NOTE | 2018-11-08 15:30 | XR_ITS ---
XR foot wt bearing LT 3V HISTORY: Ulceration along the bottom of the foot ITS.REASON: wound to bottom of left foot ORDERING PHYSICIAN: Arielle Bell DPM PATIENT AGE: 58 years COMPARISON: None FINDINGS: No fracture or dislocation. No bony destructive process. There is borderline pes planus. A calcaneal spur is present at 15 mm. Minimal osteoarthritic changes are present at the first metatarsophalangeal joint. IMPRESSION: No acute finding. See above for detail
--- NOTE | 2018-11-08 15:34 | XR_ITS ---
XR foot wt bearing RT 3V HISTORY: ITS.REASON: Comparison ORDERING PHYSICIAN: Arielle Bell DPM PATIENT AGE: 58 years COMPARISON: None FINDINGS: There is mild hallux valgus with mild osteoarthritic change of the first metatarsophalangeal joint. Normal alignment. 13 mm calcaneal spur noted. No fracture or dislocation. No lytic change. IMPRESSION: Hallux valgus with mild osteoarthritis of the first MTP joint
[2018-11-08 15:50] LABS: Basophils # 0.1 K/mm3 (0-0.2); Basophils % 0.6 % (0.1-2.0); Eosinophils # 0.5 K/mm3 (0.0-0.4); Eosinophils % 6.1 % (0.1-12.0); Hematocrit 45.1 % (42.0-52.0); Hemoglobin 14.4 g/dL (14.1-18.0); Lymphocytes # 2.1 K/mm3 (0.7-4.5); Lymphocytes % 24.8 % (10-50); Mean Corpuscular Hemoglobin 30.4 pg (27.0-31.2); Mean Corpuscular Volume 95.2 fl (80-94); Mean Platelet Volume 7.6 fl (7.4-10.4); Monocytes # 0.3 K/mm3 (0.1-1.0); Monocytes % 3.8 % (1.7-9.3); Neutrophils # 5.5 K/mm3 (1.8-7.8); Neutrophils % 64.7 % (37.0-80.0); Platelet Count 217 K/mm3 (142-424); Red Blood Count 4.74 M/mm3 (4.60-6.20); Red Cell Distribution Width 15.1 % (11.5-17.5); White Blood Count 8.4 K/mm3 (4.8-10.8)
[2018-11-08 17:05] LABS: Alanine Aminotransferase 36 U/L (12-78); Albumin Level 3.2 gm/dL (3.4-5.0); Albumin/Globulin Ratio 0.8 (1.1-1.8); Alkaline Phosphatase 131 U/L (46-116); Anion Gap 17.2 mEq/L (5-15); Bilirubin,Total 0.4 mg/dL (0.2-1.0); Blood Urea Nitrogen 14 mg/dL (7-18); C-Reactive Protein 0.9 mg/L (0.0-0.9); Carbon Dioxide 23 mmol/L (21.0-32.0); Chloride 100 mmol/L (98-107); Creatinine,Serum 1.09 mg/dL (0.70-1.30); Estimated Glomerular Filt Rate 69 ml/min (>60); GFR (African American) 84 ML/MIN (>60); Globulin 3.9 gm/dl (1.3-3.2); Glucose 362 mg/dL (74-106); Sodium 136 mmol/L (136-145); Total Protein,Serum 7.1 gm/dL (6.4-8.2)
[2018-11-08 17:07] LABS: Aspartate Amino Transferase 23 U/L (15-37); Potassium 4.2 mmoL/L (3.5-5.1)
[2018-11-08 17:58] LABS: Erythrocyte Sedimentation Rate 32 mm/hr (0-20)
[2018-11-08 19:32] LABS: Hemoglobin A1C 7.7 % (0.0-7.0)
== END ==
PROVIDERS: Visit Provider Podiatrist
DX: L60.3 Nail dystrophy (principal); Z51.89 Encounter for other specified aftercare; E11.9 Type 2 diabetes mellitus without complications; Z79.4 Long term (current) use of insulin
CPT/HCPCS: 36415; 73630; 80053; 83036; 85025; 85651; 86140

== ENCOUNTER → 2018-11-09 09:39 | Outpatient (CLI) | payer MEDICARE, MEDICAID, SELFPAY | PROVIDERS: Visit Provider Podiatrist | DX: E08.621 Diabetes mellitus due to underlying condition with foot ulcer (principal); L97.521 Non-pressure chronic ulcer of other part of left foot limited to breakdown of skin; Z79.84 Long term (current) use of oral hypoglycemic drugs | CPT/HCPCS: 87070; 87077; 87186; 87205 ==

== ENCOUNTER → 2019-04-20 11:04 | Outpatient (CLI) | payer MEDICARE, MEDICAID, SELFPAY ==
[2019-04-20 15:11] LABS: Hemoglobin A1C 6.8 % (0.0-7.0)
[2019-04-20 15:35] LABS: Alanine Aminotransferase 31 U/L (12-78); Albumin Level 3.3 gm/dL (3.4-5.0); Albumin/Globulin Ratio 0.9 (1.1-1.8); Alkaline Phosphatase 100 U/L (46-116); Anion Gap 13.1 mEq/L (5-15); Aspartate Amino Transferase 20 U/L (15-37); Bilirubin,Total 0.7 mg/dL (0.2-1.0); Blood Urea Nitrogen 8 mg/dL (7-18); Carbon Dioxide 27 mmol/L (21.0-32.0); Chloride 106 mmol/L (98-107); Creatinine,Serum 1.07 mg/dL (0.70-1.30); Estimated Glomerular Filt Rate 71 ml/min (>60); GFR (African American) 86 ML/MIN (>60); Globulin 3.6 gm/dl (1.3-3.2); Glucose 172 mg/dL (74-106); Potassium 4.1 mmoL/L (3.5-5.1); Sodium 142 mmol/L (136-145); Total Protein,Serum 6.9 gm/dL (6.4-8.2)
== END ==
PROVIDERS: Visit Provider Internal Medicine Adolescent Medicine
DX: E11.42 Type 2 diabetes mellitus with diabetic polyneuropathy (principal); Z79.84 Long term (current) use of oral hypoglycemic drugs
CPT/HCPCS: 36415; 80053; 83036

== ENCOUNTER → 2019-07-19 16:33 | Outpatient (CLI) | payer MEDICARE, MEDICAID, SELFPAY ==
[2019-07-19 18:08] LABS: Alanine Aminotransferase 25 U/L (12-78); Albumin Level 3.5 gm/dL (3.4-5.0); Alkaline Phosphatase 82 U/L (46-116); Anion Gap 15.6 mEq/L (5-15); Aspartate Amino Transferase 22 U/L (15-37); Bilirubin,Total 0.6 mg/dL (0.2-1.0); Blood Urea Nitrogen 16 mg/dL (7-18); Carbon Dioxide 26 mmol/L (21.0-32.0); Chloride 103 mmol/L (98-107); Chol/HDL Ratio 4.1 (1-3.5); Cholesterol 106 mg/dL (140-200); Creatinine,Serum 1.28 mg/dL (0.70-1.30); Estimated Glomerular Filt Rate 58 ml/min (>60); GFR (African American) 70 ML/MIN (>60); Globulin 3.5 gm/dl (1.3-3.2); Glucose 126 mg/dL (74-106); HDL Cholesterol 26 mg/dL (27-67); LDL Cholesterol 23 mg/dL (0-130); Potassium 4.6 mmoL/L (3.5-5.1); Sodium 140 mmol/L (136-145); Thyroid Stimulating Hormone 2.01 uIU/ml (0.358-3.740); Triglycerides 286 mg/dL (30-200); VLDL Cholesterol 57 mg/dL (0-40)
[2019-07-19 19:38] LABS: Hemoglobin A1C 6.7 % (0.0-7.0)
== END ==
PROVIDERS: Visit Provider Internal Medicine Adolescent Medicine
DX: E11.42 Type 2 diabetes mellitus with diabetic polyneuropathy (principal); Z79.4 Long term (current) use of insulin
CPT/HCPCS: 36415; 80053; 80061; 83036; 84443

== ENCOUNTER 2021-08-17 04:45 | Inpatient (IN) | payer MEDICARE, MEDICAID, SELFPAY ==
[2021-08-17] VITALS (13 sets, daily range): BP systolic 123–149; BP diastolic 59–84; PULSE 67–89; RESP 16–24; TEMP 36.6–37.3; O2SAT 87–97; BMI 44.0; BMI 45.3; BMI 45.6
--- NOTE | 2021-08-17 | ECG_ITS ---
APPROVED REPORT Exam: Resting ECG HR:94 bpm ECG Measurements Heart Rate 94 AXES WI 196 P 53 QRSd 92 QRS 61 QT 332 T 69 QTc 415 Conclusion Normal sinus rhythm Possible Inferior infarct, age undetermined Cannot rule out Anterior infarct, age undetermined Abnormal ECG Electronically signed by : Ervin Osorio MD 08/17/2021 20:23:44
--- NOTE | 2021-08-17 05:03 | XR_ITS ---
PROCEDURE INFORMATION: Exam: XR Chest Exam date and time: 08/17/2021 5:03 AM Age: 61 years old Clinical indication: Shortness of breath; Additional info: SOB TECHNIQUE: Imaging protocol: XR of the chest. Views: 1 view. COMPARISON: CR [id number] XR chest portable 11/20/2018 9:01 AM FINDINGS: Lungs: Right greater than left basilar airspace opacities. Pleural spaces: Unremarkable. No pleural effusion. No pneumothorax. Heart/Mediastinum: Unremarkable. No cardiomegaly. Bones/joints: Unremarkable. IMPRESSION: Bibasilar airspace opacities, right greater than left, most suggestive of aspiration or pneumonia.
--- NOTE | 2021-08-17 05:06 | HMH.EDGENADL ---
ED Disposition Clinical Impression: Pneumonia Qualifiers: Pneumonia type: due to unspecified organism Laterality: bilateral Lung location: lower lobe of lung Qualified Code(s): J18.9 - Pneumonia, unspecified organism Disposition: Admitted As Inpatient Condition on Discharge: Good Referrals: Anaya Dugan PA [Primary Care Provider] - - Critical Care Critical Care Time: No Attestation: On 08/17/21, the high probability of a clinically significant, sudden or life threatening deterioration of the following system(s) required my full and direct attention, intervention and personal management. The time I documented below is in addition to time spent performing reported procedures but includes the following listed in this critical care notation. Medical Decision Making - Ahsan Inquiry Pt receiving controlled substance: No Vital Signs: 08/17/21 04:58 08/17/21 05:00 08/17/21 05:25 Temperature 99.1 F Temperature Source Oral Pulse Rate 89 89 Pulse Rate [Apical] 68 Respiratory Rate 20 22 Blood Pressure 149/69 H Blood Pressure [Right Arm] 149/69 H Blood Pressure Mean 95 Blood Pressure Mean [Right Arm] 95 Blood Pressure Source [Right Arm] Automatic Cuff Blood Pressure Position [Right Arm] Sitting 02 Sat by Pulse Oximetry 99 97 Oxygen Delivery Method Room Air - Lab Data Lab Results 08/17/21 04:56: WBC 7.8, RBC 4.01 L, Hgb 13.0 L, Hct 39.8 L, MCV 99.4 H, MCH 32.4 H, MCHC 32.6, RDW 15.4, Plt Count 233, MPV 8.4, Neut % (Auto) 72.2, Lymph % (Auto) 15.7, [place] % (Auto) 6.0, Eos % (Auto) 5.2, Baso % (Auto) 0.9, Neut # (Auto) 5.6, Lymph # (Auto) 1.2, [place] # (Auto) 0.5, Eos # (Auto) 0.4, Baso # (Auto) 0.1 08/17/21 04:56: Sodium 138, Potassium 4.4, Chloride 101, Carbon Dioxide 28, Anion Gap 13.4, BUN 12, Creatinine 1.20, Estimated Creat Clear 73, Estimated GFR 62, Est GFR ( Amer) 74, Glucose 212 H, Calcium 8.7, Total Bilirubin 0.6, AST 23, ALT 15, Alkaline Phosphatase 84, Troponin I < 0.01, Total Protein 7.0, Albumin 3.7, Globulin 3.3 H, Albumin/Globulin Ratio 1.1 08/17/21 04:59: SARS-CoV-2 (PCR) Not detected, Influenza A Untype (PCR) Not detected, Influenza Type B (PCR) Not detected 08/17/21 05:03: Specimen Source Right radial, O2 % 3l, ABG pH 7.34 L, ABG pCO2 46.7 H, ABG pO2 70.6 L, ABG HCO3 24.7, ABG Total CO2 26.1, ABG O2 Saturation 93, ABG Base Excess -1.1, Emiliano Test Acceptable Result diagrams: 08/17/21 04:56 08/17/21 04:56 Orders (Tests/Meds): ED MEDICATIONS Generic Name Dose Route Start Last Admin Trade Name Freq PRN Reason Stop Dose Admin Ceftriaxone Sodium 1 gm/ 50 mls @ 100 mls/hr 08/17/21 05:45 Sodium Chloride IV 08/31/21 05:44 Q24H VENESSA Discontinued Medications Generic Name Dose Route Start Last Admin Trade Name Freq PRN Reason Stop Dose Admin Acetaminophen 1,000 mg 08/17/21 05:05 08/17/21 05:16 Acetaminophen 500mg Tab PO 08/17/21 05:06 1,000 mg ONCE ONE Administration Albuterol/Ipratropium 3 ml 08/17/21 05:05 08/17/21 05:25 Ipratropium/Albuterol 3 Ml Neb IH 08/17/21 05:06 3 ml ONCE ONE Administration Ketorolac Tromethamine 30 mg 08/17/21 05:05 08/17/21 05:16 Ketorolac 30mg/Ml Vial IV 08/17/21 05:06 30 mg ONCE ONE Administration ORDERS Category Date Time Status Troponin I Q3H Lab 08/17/21 08:15 Ordered Troponin I Q3H Lab 08/17/21 11:15 Ordered Blood Culture Stat Micro 08/17/21 05:37 Ordered Medical Decision Narrative: In summary this is a 61-year-old male who presents to the emergency department with 2 to 3 days of fever, headache, cough, shortness of breath, congestion, and sneezing. On arrival he is hypoxic to 87% so was placed on 3 L nasal cannula with improvement to the mid 90s. His vital signs are otherwise stable. He is awake, alert, and overall well-appearing. Exam remarkable for wheezing. Differential gnosis includes COPD exacerbation, pneumonia, COVID-19, other viral URI, ACS. Given this plan to obta
[2021-08-17 05:11] LABS: Coronavirus 19, PCR Not Detected (NotDetected); Influenza A, PCR Not Detected (NotDetected); Influenza B, PCR Not Detected (NotDetected)
[2021-08-17 05:13] LABS: Basophils # 0.1 K/mm3 (0-0.2); Basophils % 0.9 % (0.1-2.0); Eosinophils # 0.4 K/mm3 (0.0-0.4); Eosinophils % 5.2 % (0.1-12.0); Hematocrit 39.8 % (42.0-52.0); Lymphocytes # 1.2 K/mm3 (0.7-4.5); Lymphocytes % 15.7 % (10-50); Mean Corpuscular HGB Conc 32.6 g/dL (31.8-35.4); Mean Corpuscular Hemoglobin 32.4 pg (27.0-31.2); Mean Corpuscular Volume 99.4 fl (80-94); Mean Platelet Volume 8.4 fl (7.4-10.4); Monocytes # 0.5 K/mm3 (0.1-1.0); Neutrophils # 5.6 K/mm3 (1.8-7.8); Neutrophils % 72.2 % (37.0-80.0); Platelet Count 233 K/mm3 (142-424); Red Blood Count 4.01 M/mm3 (4.60-6.20); Red Cell Distribution Width 15.4 % (11.5-17.5); White Blood Count 7.8 K/mm3 (4.8-10.8)
[2021-08-17 05:15] LABS: Chloride 101 mmol/L (98-107); Sodium 138 mmol/L (136-145)
[2021-08-17 05:16] LABS: Potassium 4.4 mmoL/L (3.5-5.1)
[2021-08-17 05:17] LABS: ABG Base Excess -1.1 mmol/L (-2.4-2.3); ABG HCO3 24.7 mmhg (22.0-26.0); ABG Oxygen Saturation 93 % (90-100); ABG PCO2 46.7 mmhg (35.0-45.0); ABG PH 7.34 mmol/L (7.35-7.45); ABG PO2 70.6 mmhg (80-100); ABG TCO2 26.1 mmhg (23-27)
[2021-08-17 05:18] LABS: Alanine Aminotransferase 15 U/L (12-78); Albumin Level 3.7 g/dl (3.5-5.0); Albumin/Globulin Ratio 1.1 (1.1-1.8); Alkaline Phosphatase 84 U/L (38-126); Anion Gap 13.4 mEq/L (5-15); Aspartate Amino Transferase 23 U/L (17-59); Bilirubin,Total 0.6 mg/dl (0.2-1.3); Blood Urea Nitrogen 12 mg/dl (9-20); Carbon Dioxide 28 mmol/L (22.0-30.0); Creatinine Clearance Estimated 73 mL/min (50-200); Estimated Glomerular Filt Rate 62 ml/min (>60); GFR (African American) 74 ML/MIN (>60); Globulin 3.3 g/dL (1.3-3.2)
[2021-08-17 05:19] LABS: Calcium 8.7 mg/dl (8.4-10.2); Glucose 212 mg/dl (74-100)
[2021-08-17 05:20] LABS: Allen's Test Acceptable; Oxygen 3L %; Source Right Radial
[2021-08-17 05:35] LABS: Troponin I < 0.01 ng/ml (0.00-0.034)
--- NOTE | 2021-08-17 05:53 | PC.NURSE ---
on phone with dr mora @ this time
--- NOTE | 2021-08-17 06:54 | PC.NURSE ---
patient up to floor via wheelchair @ this time
--- NOTE | 2021-08-17 07:18 | HMH.PHAVTE ---
[facility] Pharmacy VTE Monitoring - Patient Demographics Admission date: 08/16/21 Report Date: 08/17/21 Time: 07:18 Allergies/Adverse Reactions: Patient Allergies tramadol Allergy (Verified 11/20/18 09:04) Height: 1.85 m Weight: 151.5 kg Patient Problems: Current Active Problems Pneumonia (Acute) - VTE Risk Labs: VTE Related Lab Results Hgb 13.0 g/dL (14.1-18.0) L 08/17/21 04:56 Hct 39.8 % (42.0-52.0) L 08/17/21 04:56 Plt Count 233 K/mm3 (142-424) 08/17/21 04:56 BUN 12 mg/dl (9-20) 08/17/21 04:56 Creatinine 1.20 mg/dl (0.66-1.25) 08/17/21 04:56 Estimated Creat Clear 73 mL/min (50-200) 08/17/21 04:56 Clinical Trial Participant: No - Prophylaxis VTE Prophylaxis Ordered?: Yes Types of VTE Prophylaxis: TEDS Knee High
--- NOTE | 2021-08-17 09:01 | HMH.HP ---
*Admission Date: 08/16/21 <Mell Gordon - 08/17/21 09:51> *Chief complaint: Weakness and shortness of breath <Mell Gordon - 08/17/21 09:13> *History of present illness: Mr. Junior is a 61-year-old white male with a history of Diabetes mellitus, hypertension, COPD, ROSA, and GERD who presented to [facility] emergency room for evaluation after being sick for 3 to 4 days. He describes a fever to 100.4, congestion, sneezing, and one episode of vomiting. He also complained of a headache, nonproductive cough, weakness and chest tightness which he attributed to his COPD. He did take Tylenol without much improvement in symptoms. He also started himself on doxycycline which he had a few doses of at home. He states he felt so badly this morning he decided he needed evaluation. He is vaccinated against COVID-19. He does not smoke but he is a retired [employer]. He does not wear oxygen at home. Currently his physician is Dr. Anaya Dugan and his diabetic doctor is in [place]. He was evaluated in the emergency room and O2 sats initially were 87%. He describes some epigastric anterior chest discomfort which hurts greater with inspiratory effort.With evaluation in the emergency room chest x-ray showed bibasilar airspace opacities right greater than left. Initial laboratory data shows white blood cell count of 7800 with hemoglobin of 13 hematocrit of 39.8. Blood chemistries show normal electrolytes and kidney function with a blood sugar of 212. Liver function tests are normal. ABGs revealed a pH of 7.34 PCO2 of 46.7 PO2 of 70.6 and a bicarb of 24.7 on oxygen. He was started on Rocephin IV, given a neb treatment and 30 mg of Ketorolac. At the time of this exam patient appears comfortable lying in the bed. He denies any chest discomfort. He just feels weak and tired. <Mell Gordon - 08/17/21 09:51> [facility] History Medical History: Reports:: Asthma, Chronic Obstructive Pulmonary Disease (COPD), Deep Vein Thrombosis, Diabetes Mellitus Type 2, Gastroesophageal Reflux Disease(GERD), Hyperlipidemia, Hypertension, MRSA, Peripheral Artery Disease, Pulmonary Embolism Denies:: Cancer, Diabetes Mellitus Type 1, Internal Pacemaker <Mell Gordon 08/17/21 09:51> *Have you ever received a pneumonia vaccine?: No <Mell Gordon 08/17/21 09:13> *Have you received a flu vaccine this season?: No <Mell Gordon 08/17/21 09:13> Other Medical History: Reports: Arthritis <Mell Gordon 08/17/21 09:13> Laterality Cases: Bilateral: Tonsillectomy <Mell Gordon 08/17/21 09:13> Other Surgeries: Yes: Cholecystectomy. No: Pacemaker <Mell Gordon 08/17/21 09:13> Amputation: Yes (Left great toe) <Mell Gordon 08/17/21 09:24> Fractures: Yes (LEFT ANKLE) <Mell Gordon 08/17/21 09:13> - *Social History Last grade of school completed: High school graduate <Mell Gordon 08/17/21 09:13> Smoking Status: Never smoker <Mell Gordon 08/17/21 09:13> Tobacco Type: smokeless tobacco <Mell Gordon 08/17/21 09:13> Alcohol Intake: current <Mell Gordon 08/17/21 09:13> Alcohol Intake Frequency:: a few times a week <Mell Gordon 08/17/21 09:13> Substance Use Type: denies use <Mell Gordon 08/17/21 09:13> *Occupational Status:: retired <Mell Gordon 08/17/21 09:13> Housing: house <Mell Gordon 08/17/21 09:13> Household Members: spouse <Mell Gordon 08/17/21 09:13> *Travel in the last 8 weeks: None <Mell Gordon 08/17/21 09:13> Family Hx:: Cancer, Diabetes, Heart Attack, Hypertension, Hyperlipidemia, Stroke <Mell Gordon 08/17/21 09:13> Review of Systems - Constitutional Reports fever(s), Reports headache(s), Reports lack of energy <Mell Gordon 08/17/21 09:24> - Eyes Denies change in vision <Mell Gordon - 08/17/21 09:24> - ENT Reports headache(s), Reports nasal discharge, Reports sore throat, Reports dizziness <Mell Gordon - 08/17/21 09:24> - *Cardiovascular Reports chest pain, R
[2021-08-17 09:38] LABS: Troponin I 0.01 ng/ml (0.00-0.034)
--- NOTE | 2021-08-17 10:40 | HMH.PHAINT ---
MEDICATION RECONCILIATION COMPLETED ON PATIENT USING EXTERNAL FILL HISTORY FROM PHARMACY, CALLING PATIENT'S PHARMACY, AND PATIENT INTERVIEW. -JULY FONGD
[2021-08-17 12:05] LABS: Troponin I 0.01 ng/ml (0.00-0.034)
[2021-08-17 22:19] LABS: POC Glucose,Bedside 119 (70-110)
[2021-08-18] VITALS (13 sets, daily range): BP systolic 124–164; BP diastolic 71–86; PULSE 68–88; RESP 3–26; TEMP 36.7–37.2; O2SAT 80–96; BMI 45.6
--- NOTE | 2021-08-18 04:14 | PC.NURSE ---
Patient is A&Ox4. Patient has voiced no complaints this shift. Dsg changed performed per order. Wound culture obtained and sent to lab. No complaints voiced to this RN. VSS, call light within reach, will continue to monitor. See nursing wound note.
[2021-08-18 05:58] LABS: POC Glucose,Bedside 134 (70-110)
--- NOTE | 2021-08-18 07:44 | PC.WOUNDNOTE ---
Left second toe
--- NOTE | 2021-08-18 07:53 | HMH.ACPN2 ---
<Mell Gordon - Last Filed: 08/18/21 07:53> Internal Medicine - PN: Subj *Date: 08/18/21 *Time: 07:53 Interval history: Per nursing: Patient had oxygen off this a.m. Was placed back on 2 L/min. Per patient: States he is not doing well. And is short of breath. Minimal cough. Continues with anterior chest discomfort. Exam Vital signs and Labs for Last 24 Hours: Temp Pulse Resp BP Pulse Ox 98.0 F 88 20 136/73 80 L 08/18/21 04:00 08/18/21 05:43 08/18/21 04:00 08/18/21 04:00 08/18/21 05:43 Laboratory Results - last 24 hr 08/17/21 08:20: Troponin I 0.01 08/17/21 11:25: Troponin I 0.01 08/17/21 20:58: POC Glucose 119 H 08/18/21 05:47: POC Glucose 134 H I & O for Last 24 hours: Intake & Output 08/15/21 08/16/21 08/17/21 08/18/21 11:59 11:59 11:59 11:59 Intake Total 290 / 290 360 / 360 Balance 290 / 290 360 / 360 Weight 344 lb 343 lb 14.738 oz Microbiology Reports for the Last 24 Hours: Microbiology 08/17/21 23:56 Toe,Left Second Gram Stain - Final - Constitutional mild distress, morbidly obese, somnolent - *Routine Respiratory Exam Present: wheezes, crackles, diminished air movement Comments: Respiratory rate 30 - *Routine Cardiovascular Exam Present: RRR - *Routine Abdominal Exam Present: soft, normoactive bowel sounds, obese. Absent: tenderness - *Routine Extremities Exam Absent: edema Comments: Left second toe with dry wound. Erythema and edema of toe may be less. - *Routine Neurological Exam Present: alert (Lethargic) Assessment and Plan (1) Atypical chest pain Status: Acute Category: Medical Code(s): R07.89 - Other chest pain (2) Obesity Status: Chronic Category: Medical Code(s): E66.9 - Obesity, unspecified (3) Pneumonia Status: Acute Qualifiers: Pneumonia type: due to unspecified organism Laterality: bilateral Lung location: lower lobe of lung Qualified Code(s): J18.9 - Pneumonia, unspecified organism Category: Medical Code(s): J18.9 - Pneumonia, unspecified organism (4) Neuropathy Status: Chronic Category: Medical Code(s): G62.9 - Polyneuropathy, unspecified (5) Respiratory failure with hypoxia Status: Acute Category: Medical Code(s): J96.91 - Respiratory failure, unspecified with hypoxia (6) COPD (chronic obstructive pulmonary disease) Status: Chronic Category: Medical Code(s): J44.9 - Chronic obstructive pulmonary disease, unspecified (7) Wound infection Status: Acute Category: Medical Code(s): T14.8XXA - Other injury of unspecified body region, initial encounter; L08.9 - Local infection of the skin and subcutaneous tissue, unspecified - Assessment and plan all Dx Assessment and Plan for all problems:: Stat chest x-ray and ABGs. <Kip Puentes - Last Filed: 08/18/21 16:43> Internal Medicine - PN: Subj *Date: 08/18/21 *Time: 16:41 Exam Vital signs and Labs for Last 24 Hours: Temp Pulse Resp BP Pulse Ox 98.5 F 68 22 164/86 H 96 08/18/21 12:40 08/18/21 14:10 08/18/21 12:40 08/18/21 12:40 08/18/21 12:40 Laboratory Results - last 24 hr 08/17/21 20:58: POC Glucose 119 H 08/18/21 05:47: POC Glucose 134 H 08/18/21 07:51: Specimen Source Right radial, O2 % 2l, ABG pH 7.26 L, ABG pCO2 62.2 H, ABG pO2 50.3 L, ABG HCO3 27.2 H, ABG Total CO2 29.1 H, ABG O2 Saturation 83 L*, ABG Base Excess 0.1, Emiliano Test Patient unable 08/18/21 09:45: Specimen Source Left brachial, O2 % 100% bipap, ABG pH 7.29 L, ABG pCO2 55.0 H, ABG pO2 488.9 H, ABG HCO3 26.0, ABG Total CO2 27.7 H, ABG O2 Saturation 100, ABG Base Excess -0.6, Emiliano Test Acceptable, Vent Rate 20 I & O for Last 24 hours: Intake & Output 08/16/21 08/17/21 08/18/21 08/19/21 11:59 11:59 11:59 11:59 Intake Total 290 / 290 360 / 360 700 / 700 Balance 290 / 290 360 / 360 700 / 700 Weight 344 lb 343 lb 14.738 oz Microbiology Reports for the Last 24 Hours: Microbiology 1
--- NOTE | 2021-08-18 07:58 | XR_ITS ---
PROCEDURE: XR CHEST PORTABLE CLINICAL HISTORY: hypoxic pneumonia COMPARISON: CR CXR2V XR chest 2V from 10/04/[address] angio chest from 10/04/2018 CR CXR1VP XR chest portable from 11/20/2018 CR XR CHEST PORTABLE from 08/17/2021 FINDINGS: Mild cardiomegaly without failure. Increased density noted in the right upper and right lower lobe consistent with pneumonia slightly worse in the right upper lobe and unchanged in the right lower lobe. No acute bony abnormalities. IMPRESSION: Slight worsening right-sided pneumonia Dictated by: Emiliano Fields MD 08/18/2021 08:40 Emiliano Fields MD in [place] 08/18/2021 08:40
--- NOTE | 2021-08-18 08:00 | PC.NURSE ---
Pt lethargic, breathing about 30/min. O2 had to be increased to 3 L per nasal cannula d/t sat being 84%. RT @ bedside @ this time for ABG.
[2021-08-18 08:18] LABS: ABG Base Excess 0.1 mmol/L (-2.4-2.3); ABG HCO3 27.2 mmhg (22.0-26.0); ABG Oxygen Saturation 83 % (90-100); ABG PH 7.26 mmol/L (7.35-7.45); ABG PO2 50.3 mmhg (80-100); ABG TCO2 29.1 mmhg (23-27)
[2021-08-18 08:21] LABS: Allen's Test Patient Unable; Oxygen 2L %
[2021-08-18 08:22] LABS: Source Right Radial
[2021-08-18 08:24] LABS: ABG PCO2 62.2 mmhg (35.0-45.0)
--- NOTE | 2021-08-18 08:24 | PC.NURSE ---
ABG results reported to Dr. Puentes @ this time. Pt to be placed on BIPAP. RT aware.
[2021-08-18 10:26] LABS: ABG Base Excess -0.6 mmol/L (-2.4-2.3); ABG Oxygen Saturation 100 % (90-100); ABG PH 7.29 mmol/L (7.35-7.45); ABG PO2 488.9 mmhg (80-100); ABG TCO2 27.7 mmhg (23-27)
[2021-08-18 10:33] LABS: Allen's Test Acceptable; Vent Rate 20
[2021-08-18 10:34] LABS: Source Left Brachial
--- NOTE | 2021-08-18 18:21 | PC.NURSE ---
No acute changes. Pt currently on 3 L O2 per nasal cannula, to be placed back on BIPAP @ HS. No complaints voiced. Call fonseca w/in reach.
[2021-08-18 21:45] LABS: POC Glucose,Bedside 130 (70-110)
[2021-08-18 21:45] LABS: POC Glucose,Bedside 115 (70-110)
[2021-08-18 21:45] LABS: POC Glucose,Bedside 111 (70-110)
[2021-08-19] VITALS (10 sets, daily range): BP systolic 113–157; BP diastolic 62–88; PULSE 67–85; RESP 16–20; TEMP 36.6–36.9; O2SAT 88–96; BMI 45.6
--- NOTE | 2021-08-19 04:53 | PC.NURSE ---
no acute changes. pt wore bipap until about 0245 then he removed it and refused to put it back on. placed back on 3LNC. resting in bed at this time. call light within reach.
[2021-08-19 07:08] LABS: Blood Urea Nitrogen 16 mg/dl (9-20); Calcium 8.3 mg/dl (8.4-10.2); Carbon Dioxide 32 mmol/L (22.0-30.0); Creatinine Clearance Estimated 85 mL/min (50-200); Estimated Glomerular Filt Rate 86 ml/min (>60); GFR (African American) 104 ML/MIN (>60); Glucose 108 mg/dl (74-100); Potassium 4.5 mmoL/L (3.5-5.1); Sodium 136 mmol/L (136-145)
[2021-08-19 07:16] LABS: Anion Gap 9.5 mEq/L (5-15); Chloride 99 mmol/L (98-107)
[2021-08-19 07:47] LABS: Basophils # 0.1 K/mm3 (0-0.2); Basophils % 0.9 % (0.1-2.0); Eosinophils # 0.3 K/mm3 (0.0-0.4); Eosinophils % 4.4 % (0.1-12.0); Hematocrit 37.1 % (42.0-52.0); Lymphocytes # 1.6 K/mm3 (0.7-4.5); Lymphocytes % 23.7 % (10-50); Mean Corpuscular HGB Conc 32.5 g/dL (31.8-35.4); Mean Corpuscular Volume 101.6 fl (80-94); Mean Platelet Volume 7.4 fl (7.4-10.4); Monocytes # 0.5 K/mm3 (0.1-1.0); Monocytes % 6.9 % (1.7-9.3); Neutrophils # 4.4 K/mm3 (1.8-7.8); Platelet Count 208 K/mm3 (142-424); Red Blood Count 3.65 M/mm3 (4.60-6.20); White Blood Count 6.8 K/mm3 (4.8-10.8)
--- NOTE | 2021-08-19 08:00 | HMH.ACPN2 ---
<Mell Gordon - Last Filed: 08/19/21 08:00> Internal Medicine - PN: Subj *Date: 08/19/21 *Time: 08:00 Interval history: Patient states he is better but is not well. He did sleep some during the night. He states he took his BiPAP off around 4 AM although nursing note states he took it off at about 2:45 AM and refused to put back on. He states he is not hungry and is not eating much food. He is drinking fluids well without problems. Bowels have not moved. He is voiding QS. He does ambulate to the bathroom and did sit in a chair yesterday. Laboratory data this a.m. show white blood cell count of 6800 with a hemoglobin of 12 and hematocrit 37.1. He has a normal differential. Blood chemistries show slightly high CO2 of 32 and otherwise normal. Renal function is normal. Repeat chest x-ray 08/18/2021 revealed slight worsening of right-sided pneumonia. Exam Vital signs and Labs for Last 24 Hours: Temp Pulse Resp BP Pulse Ox 98 F 67 20 142/68 H 93 L 08/19/21 04:00 08/19/21 06:20 08/19/21 04:00 08/19/21 04:00 08/19/21 06:20 Laboratory Results - last 24 hr 08/18/21 07:51: Specimen Source Right radial, O2 % 2l, ABG pH 7.26 L, ABG pCO2 62.2 H, ABG pO2 50.3 L, ABG HCO3 27.2 H, ABG Total CO2 29.1 H, ABG O2 Saturation 83 L*, ABG Base Excess 0.1, Emiliano Test Patient unable 08/18/21 09:45: Specimen Source Left brachial, O2 % 100% bipap, ABG pH 7.29 L, ABG pCO2 55.0 H, ABG pO2 488.9 H, ABG HCO3 26.0, ABG Total CO2 27.7 H, ABG O2 Saturation 100, ABG Base Excess -0.6, Emiliano Test Acceptable, Vent Rate 20 08/18/21 10:43: POC Glucose 130 H 08/18/21 15:44: POC Glucose 111 H 08/18/21 19:54: POC Glucose 115 H 08/19/21 06:32: WBC 6.8, RBC 3.65 L, Hgb 12.0 L, Hct 37.1 L, MCV 101.6 H, MCH 33.0 H, MCHC 32.5, RDW 15.0, Plt Count 208, MPV 7.4, Neut % (Auto) 64.0, Lymph % (Auto) 23.7, [place] % (Auto) 6.9, Eos % (Auto) 4.4, Baso % (Auto) 0.9, Neut # (Auto) 4.4, Lymph # (Auto) 1.6, [place] # (Auto) 0.5, Eos # (Auto) 0.3, Baso # (Auto) 0.1 08/19/21 06:32: Sodium 136, Potassium 4.5, Chloride 99, Carbon Dioxide 32 H, Anion Gap 9.5, BUN 16 D, Creatinine 0.90 D, Estimated Creat Clear 85, Estimated GFR 86, Est GFR ( Amer) 104 D, Glucose 108 H, Calcium 8.3 L I & O for Last 24 hours: Intake & Output 08/16/21 08/17/21 08/18/21 08/19/21 11:59 11:59 11:59 11:59 Intake Total 290 / 290 360 / 360 700 / 700 Balance 290 / 290 360 / 360 700 / 700 Weight 344 lb 343 lb 14.738 oz 343 lb 14 oz Microbiology Reports for the Last 24 Hours: Microbiology 08/17/21 04:59 Blood Blood Culture - Preliminary NO GROWTH AFTER 48 HOURS 08/17/21 04:59 Blood Blood Culture - Preliminary NO GROWTH AFTER 48 HOURS 08/17/21 23:56 Toe,Left Second Gram Stain - Final 08/17/21 23:56 Toe,Left Second Wound Culture - Preliminary NO GROWTH AFTER 24 HOURS 08/18/21 16:40 Sputum - Expectorated Sputum Gram Stain - Final - Constitutional no acute distress Comments: He currently is chewing/dipping tobacco - *Routine Respiratory Exam Present: wheezes (Bilateral greater on the right.), crackles (Greater on the right) - *Routine Cardiovascular Exam Present: RRR - *Routine Abdominal Exam Present: soft, normoactive bowel sounds, obese. Absent: tenderness - *Routine Extremities Exam Present: pulses intact. Absent: edema, calf tenderness Comments: Left second toe with dried wound tip. Edema appears less. Erythema is about the same. - *Routine Neurological Exam Present: alert, oriented X3 Assessment and Plan (1) Pneumonia Status: Acute Qualifiers: Pneumonia type: due to unspecified organism Laterality: bilateral Lung location: lower lobe of lung Qualified Code(s): J18.9 - Pneumonia, unspecified organism Category: Medical Code(s): J18.9 - Pneumonia, unspecified organism (2) Hypercapnic respiratory failure Status: Acute Category: Medi
--- NOTE | 2021-08-19 08:12 | PC.NURSE ---
SPO2 96 on 3 L, O2 weaned to 2L @ this time.
--- NOTE | 2021-08-19 08:23 | PC.NURSE ---
Non-productive cough noted, pt aware of need for sputum sample. Speci cup available @ bedside.
[2021-08-19 11:14] LABS: POC Glucose,Bedside 107 (70-110)
--- NOTE | 2021-08-19 13:41 | DIET.NUTRFU ---
Pt reports decreased appetite, PO intakes 50%. Weight stable. BG moderate avg. 115. Items of pt's preference added to diet order to help with low appetite/moderate nausea.
[2021-08-19 16:26] LABS: POC Glucose,Bedside 196 (70-110)
--- NOTE | 2021-08-19 17:25 | PC.NURSE ---
No acute changes. Remains on 2 L O2 per nasal cannula. Lungs w/ scat wheezes. Pt is independent w/ adl's. Bathed independently w/o issue. Has been up to chair majority of shift. Voiding w/o difficulty. No BM this shift. No complaints voiced. Call fonseca w/in reach.
[2021-08-20] VITALS (10 sets, daily range): BP systolic 144–163; BP diastolic 62–87; PULSE 64–85; RESP 16–21; TEMP 36.4–36.9; O2SAT 90–94; BMI 46.7
[2021-08-20 05:46] LABS: POC Glucose,Bedside 269 (70-110)
--- NOTE | 2021-08-20 06:12 | PC.NURSE ---
no acute changes. pt refused to wear his bipap despite encouragement. continues on 2LNC w/ O2 noted >90%. no c/o pain or discomfort voiced.
--- NOTE | 2021-08-20 08:43 | HMH.ACPN2 ---
<Afua Richards - Last Filed: 08/20/21 08:43> Internal Medicine - PN: Subj *Date: 08/20/21 *Time: 08:43 Interval history: Patient states he is feeling better today. He still has a cough and dyspnea with exertion but feels better at rest. He denies any pain. He states he had difficulty sleeping last night. Exam Vital signs and Labs for Last 24 Hours: Temp Pulse Resp BP Pulse Ox 97.6 F 80 21 163/86 H 90 L 08/20/21 08:00 08/20/21 08:00 08/20/21 08:00 08/20/21 08:00 08/20/21 08:00 Laboratory Results - last 24 hr 08/19/21 10:52: POC Glucose 107 08/19/21 16:09: POC Glucose 196 H 08/20/21 04:56: POC Glucose 269 H I & O for Last 24 hours: Intake & Output 08/17/21 08/18/21 08/19/21 08/20/21 11:59 11:59 11:59 11:59 Intake Total 290 / 290 360 / 360 1180 / 1180 840 / 840 Output Total 0 / 0 Balance 290 / 290 360 / 360 1180 / 1180 840 / 840 Weight 344 lb 343 lb 14.738 oz 343 lb 14 oz 352 lb 11.2 oz Microbiology Reports for the Last 24 Hours: Microbiology 08/17/21 23:56 Toe,Left Second Gram Stain - Final 08/17/21 23:56 Toe,Left Second Wound Culture - Preliminary 08/17/21 04:59 Blood Blood Culture - Preliminary NO GROWTH AFTER 48 HOURS 08/17/21 04:59 Blood Blood Culture - Preliminary NO GROWTH AFTER 48 HOURS - Constitutional no acute distress - *Routine Respiratory Exam Present: rhonchi, wheezes - *Routine Cardiovascular Exam Present: RRR - *Routine Abdominal Exam Present: soft, normoactive bowel sounds. Absent: tenderness - *Routine Extremities Exam Absent: cyanosis, clubbing, edema - *Routine Skin Exam Present: warm. Absent: rash - *Routine Neurological Exam Present: alert, oriented X3 Assessment and Plan (1) Pneumonia Status: Acute Qualifiers: Pneumonia type: due to unspecified organism Laterality: bilateral Lung location: lower lobe of lung Qualified Code(s): J18.9 - Pneumonia, unspecified organism Category: Medical Code(s): J18.9 - Pneumonia, unspecified organism (2) Hypercapnic respiratory failure Status: Acute Category: Medical Code(s): J96.92 - Respiratory failure, unspecified with hypercapnia (3) Atypical chest pain Status: Acute Category: Medical Code(s): R07.89 - Other chest pain (4) Obesity Status: Chronic Category: Medical Code(s): E66.9 - Obesity, unspecified (5) Neuropathy Status: Chronic Category: Medical Code(s): G62.9 - Polyneuropathy, unspecified (6) Respiratory failure with hypoxia Status: Acute Category: Medical Code(s): J96.91 - Respiratory failure, unspecified with hypoxia (7) COPD (chronic obstructive pulmonary disease) Status: Chronic Category: Medical Code(s): J44.9 - Chronic obstructive pulmonary disease, unspecified (8) Wound infection Status: Acute Category: Medical Code(s): T14.8XXA - Other injury of unspecified body region, initial encounter; L08.9 - Local infection of the skin and subcutaneous tissue, unspecified - Assessment and plan all Dx Assessment and Plan for all problems:: Patient is improving. Will remove oxygen and check her room air oxygen saturation today. <Kip Puentes - Last Filed: 08/20/21 17:27> Internal Medicine - PN: Subj *Date: 08/20/21 *Time: 17:25 Exam Vital signs and Labs for Last 24 Hours: Temp Pulse Resp BP Pulse Ox 97.9 F 78 20 144/62 H 93 L 08/20/21 12:00 08/20/21 14:56 08/20/21 12:00 08/20/21 12:00 08/20/21 12:00 Laboratory Results - last 24 hr 08/20/21 04:56: POC Glucose 269 H 08/20/21 11:32: POC Glucose 251 H I & O for Last 24 hours: Intake & Output 08/18/21 08/19/21 08/20/21 08/21/21 11:59 11:59 11:59 11:59 Intake Total 360 / 360 1180 / 1180 840 / 840 360 / 360 Output Total 0 / 0 Balance 360 / 360 1180 / 1180 840 / 840 360 / 360 Weight 343 lb 14.738 oz 343 lb 14 oz 352 lb 11.2 oz Microbiology Repor
[2021-08-20 11:46] LABS: POC Glucose,Bedside 251 (70-110)
--- NOTE | 2021-08-20 15:04 | SW/DCPLANNER ---
Addendum entered by Tova Salcido 08/21/21 10:03: MADE ROUNDS WITH DR OLVERA THIS MORNING AND HE IS DISCHARGING PATIENT TO RETURN HOME AND FEELS HIS HALLUCINATIONS WILL CLEAR ONCE HE IS HOME...HE SEEMS TO THINK IT HAS TO DO WITH HIS STEROIDS HE IS TAKING.. PATIENT WAS UP AND DOWN ALL NIGHT WANDERING AROUND IN THE HALLWAYS AND SEEING THINGS IN HIS ROOM.. I DID HAVE HIS 02 CHECKED THIS MORNING AND HE DOES NOT MEET MEDICARES GUIDELINES FOR HOME 02... HE DOES SLEEP WITH A C-PAP AT HOME AT BEDTIME.. NO ADDITIONAL ORDERS FOR THIS PATIENT AT THIS TIME.. PATIENT WILL FOLLOW UP MD NEXT WEEK... Original Note: This patient currently resides at home with family. Patient stated that he does not have home O2 at this time. RA has been 90% or greater per patients nurse (Anaya). CM will continue to follow up with patient/MD if any other needs/orders occur at time of discharge. Patient could potentially discharge later today/tomorrow.
--- NOTE | 2021-08-20 16:37 | PC.NURSE ---
Pt has been pleasant and cooperative this shift. A&O X4. No complaints of pain or SOA. Lung sounds are diminished with scattered wheezes. No edema noted. Pt is on room air with sats. >90%. Pt is tolerating a diabetic diet well and eats 100% of all meals. Pt ambulates to/from the bathroom independently and voids clear, yellow urine without issue. No BM thus far today. Pt has also ambulated several times in the hallway today. FSBS results have been 251 and 356. 20 G peripheral IV in the RT AC is patent and SL. VSS. Call light within reach. Will continue to monitor.
[2021-08-21] VITALS: BP 155/98; PULSE 70; RESP 16; TEMP 36.6; O2SAT 93
[2021-08-21 04:00] VITALS: BP 157/84; PULSE 70; RESP 12; TEMP 36.6; O2SAT 91
--- NOTE | 2021-08-21 04:48 | PC.NURSE ---
Pt has been anxious this shift. Has c/o hallucinations. Pt has stated that he has seen dogs, cats and lizards in his room. He has pointed at the wall and stated that the wall looked old with cob webbs. Pt asked this nurse if I could see the icicles hanging from the ceiling. He understands that there are things he is seeing that are not really there. VSS. Pt has been on RA with periods of O2 2l NC. FSBS has been in the 300s. No other concerns at this time. Will continue to monitor.
--- NOTE | 2021-08-21 05:28 | PC.NURSE ---
notified of Pt's hallucinations. New orders received. g
[2021-08-21 05:41] VITALS: PULSE 78
[2021-08-21 06:02] VITALS: O2SAT 92
[2021-08-21 06:17] LABS: ABG Base Excess 0.6 mmol/L (-2.4-2.3); ABG HCO3 24.9 mmhg (22.0-26.0); ABG Oxygen Saturation 91 % (90-100); ABG PCO2 38.7 mmhg (35.0-45.0); ABG PH 7.43 mmol/L (7.35-7.45); ABG TCO2 26.1 mmhg (23-27)
[2021-08-21 06:24] LABS: Allen's Test Acceptable; Oxygen 2 LPM %; Source Left Radial
[2021-08-21 07:42] VITALS: BP 162/83; PULSE 78; RESP 16; TEMP 36.5; O2SAT 91
--- NOTE | 2021-08-21 08:22 | HMH.ACPN2 ---
<Afua Richards - Last Filed: 08/21/21 08:22> Internal Medicine - PN: Subj *Date: 08/21/21 *Time: 08:22 Interval history: Patient is feeling better today. He still gets short of breath with any movement. He has been off of his oxygen with satisfactory room air sats in the yesterday. He is anxious to go home as he has not been sleeping in the hospital. Exam Vital signs and Labs for Last 24 Hours: Temp Pulse Resp BP Pulse Ox 97.7 F 78 16 162/83 H 91 L 08/21/21 07:42 08/21/21 07:42 08/21/21 07:42 08/21/21 07:42 08/21/21 07:42 Laboratory Results - last 24 hr 08/20/21 11:32: POC Glucose 251 H 08/21/21 05:31: Specimen Source Left radial, O2 % 2 lpm, ABG pH 7.43, ABG pCO2 38.7, ABG pO2 60.0 L, ABG HCO3 24.9, ABG Total CO2 26.1, ABG O2 Saturation 91, ABG Base Excess 0.6, Emiliano Test Acceptable I & O for Last 24 hours: Intake & Output 08/18/21 08/19/21 08/20/21 08/21/21 11:59 11:59 11:59 11:59 Intake Total 360 / 360 1180 / 1180 840 / 840 960 / 960 Output Total 0 / 0 Balance 360 / 360 1180 / 1180 840 / 840 960 / 960 Weight 343 lb 14.738 oz 343 lb 14 oz 352 lb 11.2 oz Microbiology Reports for the Last 24 Hours: Microbiology 08/17/21 23:56 Toe,Left Second Gram Stain - Final 08/17/21 23:56 Toe,Left Second Wound Culture - Preliminary Gram Positive Cocci Gram Positive Cocci#2 - Constitutional no acute distress - *Routine Respiratory Exam Present: rhonchi, wheezes - *Routine Cardiovascular Exam Present: RRR - *Routine Abdominal Exam Present: soft, normoactive bowel sounds. Absent: tenderness - *Routine Extremities Exam Absent: cyanosis, clubbing, edema - *Routine Skin Exam Present: warm. Absent: rash - *Routine Neurological Exam Present: alert, oriented X3 Assessment and Plan (1) Pneumonia Status: Acute Qualifiers: Pneumonia type: due to unspecified organism Laterality: bilateral Lung location: lower lobe of lung Qualified Code(s): J18.9 - Pneumonia, unspecified organism Category: Medical Code(s): J18.9 - Pneumonia, unspecified organism (2) Hypercapnic respiratory failure Status: Acute Category: Medical Code(s): J96.92 - Respiratory failure, unspecified with hypercapnia (3) Atypical chest pain Status: Acute Category: Medical Code(s): R07.89 - Other chest pain (4) Obesity Status: Chronic Category: Medical Code(s): E66.9 - Obesity, unspecified (5) Neuropathy Status: Chronic Category: Medical Code(s): G62.9 - Polyneuropathy, unspecified (6) Respiratory failure with hypoxia Status: Acute Category: Medical Code(s): J96.91 - Respiratory failure, unspecified with hypoxia (7) COPD (chronic obstructive pulmonary disease) Status: Chronic Category: Medical Code(s): J44.9 - Chronic obstructive pulmonary disease, unspecified (8) Wound infection Status: Acute Category: Medical Code(s): T14.8XXA - Other injury of unspecified body region, initial encounter; L08.9 - Local infection of the skin and subcutaneous tissue, unspecified - Assessment and plan all Dx Assessment and Plan for all problems:: Toe wound culture growing gram-positive cocci. Patient's respiratory status is improving. He can likely be discharged home today on continued antibiotics. <Kip Puentes - Last Filed: 08/21/21 14:39> Internal Medicine - PN: Subj *Date: 08/21/21 *Time: 14:27 Exam Vital signs and Labs for Last 24 Hours: Temp Pulse Resp BP Pulse Ox 97.7 F 78 16 162/83 H 91 L 08/21/21 07:42 08/21/21 07:42 08/21/21 07:42 08/21/21 07:42 08/21/21 07:42 Laboratory Results - last 24 hr 08/21/21 05:31: Specimen Source Left radial, O2 % 2 lpm, ABG pH 7.43, ABG pCO2 38.7, ABG pO2 60.0 L, ABG HCO3 24.9, ABG Total CO2 26.1, ABG O2 Saturation 91, ABG Base Excess 0.6, Emiliano Test Acceptable I & O for Last 24 hours: Intake & Output 08/19/21 11
--- NOTE | 2021-08-21 09:04 | HMH.ACPN2 ---
Internal Medicine - PN: Subj *Date: 08/21/21 *Time: 09:04 Exam Vital signs and Labs for Last 24 Hours: Temp Pulse Resp BP Pulse Ox 97.7 F 78 16 162/83 H 91 L 08/21/21 07:42 08/21/21 07:42 08/21/21 07:42 08/21/21 07:42 08/21/21 07:42 Laboratory Results - last 24 hr 08/20/21 11:32: POC Glucose 251 H 08/21/21 05:31: Specimen Source Left radial, O2 % 2 lpm, ABG pH 7.43, ABG pCO2 38.7, ABG pO2 60.0 L, ABG HCO3 24.9, ABG Total CO2 26.1, ABG O2 Saturation 91, ABG Base Excess 0.6, Emiliano Test Acceptable I & O for Last 24 hours: Intake & Output 08/18/21 08/19/21 08/20/21 08/21/21 23:59 23:59 23:59 23:59 Intake Total 700 / 700 1080 / 1080 840 / 840 360 / 360 Output Total 0 / 0 Balance 700 / 700 1080 / 1080 840 / 840 360 / 360 Weight 156 kg 155.979 kg 159.982 kg Microbiology Reports for the Last 24 Hours: Microbiology 08/17/21 23:56 Toe,Left Second Gram Stain - Final 08/17/21 23:56 Toe,Left Second Wound Culture - Preliminary Gram Positive Cocci Gram Positive Cocci#2 Assessment and Plan (1) Pneumonia Status: Acute Qualifiers: Pneumonia type: due to unspecified organism Laterality: bilateral Lung location: lower lobe of lung Qualified Code(s): J18.9 - Pneumonia, unspecified organism Category: Medical Code(s): J18.9 - Pneumonia, unspecified organism (2) Hypercapnic respiratory failure Status: Acute Category: Medical Code(s): J96.92 - Respiratory failure, unspecified with hypercapnia (3) Atypical chest pain Status: Acute Category: Medical Code(s): R07.89 - Other chest pain (4) Obesity Status: Chronic Qualifiers: Category: Medical Code(s): E66.9 - Obesity, unspecified (5) Neuropathy Status: Chronic Category: Medical Code(s): G62.9 - Polyneuropathy, unspecified (6) Respiratory failure with hypoxia Status: Acute Category: Medical Code(s): J96.91 - Respiratory failure, unspecified with hypoxia (7) COPD (chronic obstructive pulmonary disease) Status: Chronic Category: Medical Code(s): J44.9 - Chronic obstructive pulmonary disease, unspecified (8) Wound infection Status: Acute Category: Medical Code(s): T14.8XXA - Other injury of unspecified body region, initial encounter; L08.9 - Local infection of the skin and subcutaneous tissue, unspecified The patient's infection will respond to the chosen ABx?: Yes Is the patient receiving the right drug, dose, and route?: Yes Could a more targeted ABx be ordered?: No 7 (MINIMUM OF 5)
--- NOTE | 2021-08-21 18:56 | PC.NURSE ---
Patient up walking aound nurses station at shift change, looking for his , stating that she is on the floor. Patient states that he has been hallucinating all night, that he has seen several people in his room and when he goes to touch them they aren't there or they won't respond to him. Patient stated he seen snakes, rats, and smoke coming from the vents in the room. Patient was able to be escorted back to his room until the doctor came to make morning rounds. Dr. Puentes and the care management team came to see patient, patient stated everything to Dr. Puentes that he expressed to nursing staff. I requested that a CT or MRI be done, as this is not baseline for patient, Dr. Puentes decided to discharge patient to home, stating steroid psychosis. I called patient's to get an ETA, as discharge orders were put in. was still 30 minutes away, aware of confused behavior and concerned. Patient came back to nurses station, threatening staff and ready to walk out, stating that is on the floor somewhere and that she is up here cheating on him. Once again, able to get patient to room to remove IV. Patient initially refused morning meds, later agreed to take them. Upon 's arrival, patient spoke with in a raised voice, threatening to kill himself. Dr. Puentes notified by phone at approximately 10:00, making him aware of the sitaution. Dr. Puentes left the clinic and came back to see the patient, telling the again that he was discharged and that this was steroid psychosis. Patient was discharged to home with . Concern expressed to phyician, care management, and nursing staff about patient condition upon discharge.
--- NOTE | 2021-08-23 21:21 | HMH.DCSUM ---
General - General Admission date:: 08/17/21 <Kip Puentes - 09/12/21 23:16> 08/17/21 <MauriceAfua - 08/23/21 21:32> Discharge date: 08/21/21 <MauriceAfua - 08/23/21 21:32> HPI HPI: Mr. Junior is a 61-year-old white male with a history of Diabetes mellitus, hypertension, COPD, ROSA, and GERD who presented to [facility] emergency room for evaluation after being sick for 3 to 4 days. He describes a fever to 100.4, congestion, sneezing, and one episode of vomiting. He also complained of a headache, nonproductive cough, weakness and chest tightness which he attributed to his COPD. He did take Tylenol without much improvement in symptoms. He also started himself on doxycycline which he had a few doses of at home. He states he felt so badly this morning he decided he needed evaluation. He is vaccinated against COVID-19. 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 He does not wear oxygen at home. Currently his physician is Dr. Anaya Dugan and his diabetic doctor is in [place]. He was evaluated in the emergency room and O2 sats initially were 87%. He describes some epigastric anterior chest discomfort which hurts greater with inspiratory effort.With evaluation in the emergency room chest x-ray showed bibasilar airspace opacities right greater than left. Initial laboratory data shows white blood cell count of 7800 with hemoglobin of 13 hematocrit of 39.8. Blood chemistries show normal electrolytes and kidney function with a blood sugar of 212. Liver function tests are normal. ABGs revealed a pH of 7.34 PCO2 of 46.7 PO2 of 70.6 and a bicarb of 24.7 on oxygen. He was started on Rocephin IV, given a neb treatment and 30 mg of Ketorolac. At the time of this exam patient appears comfortable lying in the bed. He denies any chest discomfort. He just feels weak and tired. <BrianAfua coffey - 08/23/21 21:32> Hospital Course Hospital Course: The patient's chest x-ray showed bibasilar airspace opacities, right greater than the left, suggestive of aspiration pneumonia. The patient was admitted and started on Zithromax, Rocephin, duo nebs, and sliding scale insulin. He did have a wound on the tip of the left toe and wound care was ordered for this as well. By 08/18/2021, the patient was not feeling well. He was short of breath and having some chest discomfort and was also confused. A stat chest x-ray and ABGs were ordered. Results of the ABG confirmed a diagnosis of hypercapnic respiratory failure. He was placed on BiPAP and mentation quickly improved. He was able to be weaned back to nasal cannula. His repeat chest x-ray showed a slight worsening right-sided pneumonia. By , he felt better but was not well. He took his BiPAP off and nursing stated he refused to put it back on. He was able to drink but was not very hungry. He was able to get up and sit in a chair and ambulate to the bathroom. Blood cultures returned showing no growth. Steroids were added due to prominent wheezing. He continued to have difficulty sleeping and stated he began hallucinating some throughout the night. His oxygen sats were stable and his nasal oxgyen was removed. His room air saturations were satisfactory The redness of his toe improved with antibiotics and his already scheduled him an appointment with the clinical rehabilitation coordinator after discharge. By 08/21/2021, he was feeling better. He had been off of his oxygen for an entire day with satisfactory room air sats. He was anxious to go home as he stated he was not sleeping well in the hospital due to the hallucinations. It was felt these may have been caused by the steroids and lack of sleep. Dr. Puentes felt discharging him was more therapeutic than keeping him in the hospital. He was therefore discharged and continued on antibiotics. He will follow-up with PCP in 1 week and will also follow-up with podiatry. Of note, his left toe wound culture grew out Corynebac
== END 2021-08-21 10:47 | disposition home or self-care (01) | DRG 193 ==
LOC: ER 06:08 → 2ND 06:18
PROVIDERS: Nurse Practitioner Family; Admitting Provider Family Medicine; Emergency Provider Emergency Medicine; PCP Nurse Practitioner Family; Visit Provider Family Medicine
DX: J18.9 Pneumonia, unspecified organism (principal); J96.01 Acute respiratory failure with hypoxia; J44.0 Chronic obstructive pulmonary disease with (acute) lower respiratory infection; Z68.42 Body mass index [BMI] 45.0-49.9, adult; R44.2 Other hallucinations; Z20.822 Contact with and (suspected) exposure to COVID-19; E11.40 Type 2 diabetes mellitus with diabetic neuropathy, unspecified; I10 Essential (primary) hypertension; I25.2 Old myocardial infarction; Z79.84 Long term (current) use of oral hypoglycemic drugs; E66.9 Obesity, unspecified; G47.33 Obstructive sleep apnea (adult) (pediatric); F17.220 Nicotine dependence, chewing tobacco, uncomplicated; T38.0X5A Adverse effect of glucocorticoids and synthetic analogues, initial encounter; T14.8XXA Other injury of unspecified body region, initial encounter
CPT/HCPCS: 36415; 71045; 80048; 80053; 82803; 82962; 84484; 85025; 87040; 87070; 87077; 87186; 87205; 93005; 94640; 94660; 94760; 94761; 96365; 96375; 99284; C9803; J0456; U0003; U0005

== ENCOUNTER 2022-01-03 17:22 | Observation (INO) | payer MEDICARE, MEDICAID, SELFPAY ==
[2022-01-03] VITALS (14 sets, daily range): BP systolic 122–154; BP diastolic 65–89; PULSE 60–86; RESP 12–20; TEMP 36.6–36.8; O2SAT 90–97; BMI 46.1; BMI 46.4
--- NOTE | 2022-01-03 18:05 | ECG_ITS ---
APPROVED REPORT Exam: Resting ECG HR:72 bpm ECG Measurements Heart Rate 72 AXES DC 205 P 114 QRSd 113 QRS 52 QT 363 T 65 QTc 387 Conclusion SINUS RHYTHM Old ST elevation in anterior leads, old inferior Q waves, questionable significance. No changes from baseline ABNORMAL ECG UNCONFIRMED REPORT Electronically signed by : Ervin Osorio MD 01/05/2022 16:49:54
--- NOTE | 2022-01-03 18:05 | XR_ITS ---
PROCEDURE INFORMATION: Exam: XR Chest Exam date and time: 01/03/2022 6:12 PM Age: 61 years old Clinical indication: Shortness of breath; Additional info: Chest , and SOA TECHNIQUE: Imaging protocol: XR of the chest. Views: 1 view. COMPARISON: CR XR CHEST PORTABLE 08/18/2021 8:14 AM FINDINGS: Airway: Patent Lungs: Low lung volumes causes crowding of the bronchovascular structures. Linear and platelike atelectasis in the bilateral lung bases. No significant acute interstitial or airspace disease. Pleural spaces: Unremarkable. No pleural effusion. No pneumothorax. Heart/Mediastinum: Cardiomediastinal silhouette is magnified due to technique. Bones/joints: No acute skeletal abnormality or aggressive osseous lesion. IMPRESSION: No acute thoracic pathology.
[2022-01-03 18:17] LABS: Chloride 105 mmol/L (98-107); Sodium 138 mmol/L (136-145)
[2022-01-03 18:18] LABS: Potassium 4.3 mmoL/L (3.5-5.1)
[2022-01-03 18:20] LABS: Blood Urea Nitrogen 13 mg/dl (9-20); Creatinine Clearance Estimated 80 mL/min (50-200); Estimated Glomerular Filt Rate 68 ml/min (>60); GFR (African American) 82 ML/MIN (>60)
[2022-01-03 18:21] LABS: Anion Gap 9.3 mEq/L (5-15); Calcium 7.9 mg/dl (8.4-10.2); Carbon Dioxide 28 mmol/L (22.0-30.0); Glucose 298 mg/dl (74-100)
[2022-01-03 18:23] LABS: Basophils # 0.1 K/mm3 (0-0.2); Basophils % 1.9 % (0.1-2.0); Eosinophils # 0.5 K/mm3 (0.0-0.4); Eosinophils % 7.5 % (0.1-12.0); Hematocrit 42.2 % (42.0-52.0); Hemoglobin 13.6 g/dL (14.1-18.0); Lymphocytes % 32.6 % (10-50); Mean Corpuscular HGB Conc 32.3 g/dL (31.8-35.4); Mean Corpuscular Hemoglobin 30.9 pg (27.0-31.2); Mean Corpuscular Volume 95.6 fl (80-94); Mean Platelet Volume 8.3 fl (7.4-10.4); Monocytes # 0.3 K/mm3 (0.1-1.0); Monocytes % 4.5 % (1.7-9.3); Neutrophils # 3.3 K/mm3 (1.8-7.8); Neutrophils % 53.5 % (37.0-80.0); Platelet Count 218 K/mm3 (142-424); Red Blood Count 4.41 M/mm3 (4.60-6.20); White Blood Count 6.2 K/mm3 (4.8-10.8)
[2022-01-03 18:30] LABS: NT Pro Brain Natriuretic Pep. 186 pg/mL (0-125)
[2022-01-03 18:35] LABS: Troponin I < 0.01 ng/ml (0.00-0.034)
--- NOTE | 2022-01-03 20:52 | CT_ITS ---
PROCEDURE INFORMATION: Exam: CTA Chest With Contrast Exam date and time: 01/03/2022 9:23 PM Age: 61 years old Clinical indication: Shortness of breath; Additional info: SOA RO pe TECHNIQUE: Imaging protocol: Computed tomographic angiography of the chest with contrast. 3D rendering (Not supervised by radiologist): MIP and/or 3D reconstructed images were created by the technologist. Radiation optimization: All CT scans at this facility use at least one of these dose optimization techniques: automated exposure control; mA and/or kV adjustment per patient size (includes targeted exams where dose is matched to clinical indication); or iterative reconstruction. Contrast material: ISOVUE 370; Contrast volume: 70 ml; Contrast route: INTRAVENOUS (IV); COMPARISON: [facility] CT angio chest 10/04/2018 5:43 PM FINDINGS: Pulmonary arteries: Normal. No pulmonary emboli. Aorta: Aneurysmal dilation of the mid ascending thoracic aorta measuring 4 cm. No acute pathology in the aorta. Thyroid: The thyroid gland is normal. Lungs: Linear atelectasis in the inferior segments of the left upper lobe. Platelike atelectasis in the left lower lobe. Linear and platelike atelectasis in the right lower lobe. Mild lingular atelectasis. Diffuse bilateral segmental bronchial wall thickening. Subtle mosaic attenuation to the lung parenchyma. Calcified granuloma in the right middle lobe is of no clinical concern. Remainder of the lungs are clear. Pleural spaces: Unremarkable. No pneumothorax. No pleural effusion. Heart: There is moderate atherosclerotic calcification of the coronary arteries. Heart is of normal size and morphology. No pericardial thickening or effusion. Lymph nodes: Unremarkable. No enlarged lymph nodes. Bones/joints: No acute skeletal pathology. Moderate multilevel degenerative changes of the spine, as manifested by multilevel anterior osteophytes and multilevel decrease in intervertebral disc space. No aggressive osseous lesions. Soft tissues: Unremarkable. Other findings: The visualized intra-abdominal structures demonstrate no acute findings. IMPRESSION: 1. Diffuse segmental bronchial wall thickening, favoring acute bronchitis in the appropriate clinical setting. 2. Multifocal areas of linear and platelike atelectasis appreciated throughout the lungs. 3. Diffuse lung parenchymal findings favoring chronic small airways disease. 4. No other acute thoracic pathology is identified. Specifically, no definitive evidence for pulmonary emboli. 5. Incidental findings as above.
--- NOTE | 2022-01-03 20:54 | HMH.EDSOB ---
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 Qualified Code(s): E11.65 - Type 2 diabetes mellitus with hyperglycemia Obesity Qualifiers: Obesity type: due to excess calories Obesity classification: adult class 3 (BMI >= 40) Serious obesity comorbidity presence: with serious comorbidity Body mass index: BMI 45.0-49.9 Qualified Code(s): E66.01 - Morbid (severe) obesity due to excess calories; Z68.42 - Body mass index [BMI] 45.0-49.9, adult Disposition: Admitted as Observation Condition on Discharge: Good - Critical Care Critical Care Time: No Attestation: On 01/03/22, the high probability of a clinically significant, sudden or life threatening deterioration of the following system(s) required my full and direct attention, intervention and personal management. The time I documented below is in addition to time spent performing reported procedures but includes the following listed in this critical care notation. Medical Decision Making - Medical Records Medical records reviewed: Yes: I reviewed the patient's medical records. - Ahsan Inquiry Pt receiving controlled substance: No Vital Signs: 01/03/22 18:09 01/03/22 18:31 01/03/22 19:01 Temperature 98.2 F Temperature Source Oral Pulse Rate 73 72 Pulse Rate [Left Radial] 73 Respiratory Rate 20 18 14 Blood Pressure 141/76 H 131/66 Blood Pressure [Right Arm] 154/89 H Blood Pressure Mean [Right Arm] 110 02 Sat by Pulse Oximetry 96 90 L 92 L Oxygen Delivery Method Room Air 01/03/22 19:31 01/03/22 20:01 01/03/22 21:00 Temperature Temperature Source Pulse Rate 69 66 86 Pulse Rate [Left Radial] Respiratory Rate 16 18 16 Blood Pressure 140/72 148/66 H 154/79 H Blood Pressure [Right Arm] Blood Pressure Mean [Right Arm] 02 Sat by Pulse Oximetry 95 96 93 L Oxygen Delivery Method - Lab Data Lab results reviewed: Yes: I reviewed the patient's lab results. Lab Results 01/03/22 18:00: WBC 6.2, RBC 4.41 L, Hgb 13.6 L, Hct 42.2, MCV 95.6 H, MCH 30.9, MCHC 32.3, RDW 15.0, Plt Count 218, MPV 8.3, Neut % (Auto) 53.5, Lymph % (Auto) 32.6, Lewis % (Auto) 4.5, Eos % (Auto) 7.5, Baso % (Auto) 1.9, Neut # (Auto) 3.3, Lymph # (Auto) 2.0, Lewis # (Auto) 0.3, Eos # (Auto) 0.5 H, Baso # (Auto) 0.1 01/03/22 18:00: Sodium 138, Potassium 4.3, Chloride 105, Carbon Dioxide 28, Anion Gap 9.3, BUN 13, Creatinine 1.10, Estimated Creat Clear 80, Estimated GFR 68, Est GFR ( Amer) 82, Glucose 298 H, Calcium 7.9 L, Troponin I < 0.01, NT-Pro-B Natriuret Pep 186 H 01/03/22 21:06: Troponin I < 0.01 01/03/22 21:17: SARS-CoV-2 (PCR) Not detected, Influenza A Untype (PCR) Not detected, Influenza Type B (PCR) Not detected Result diagrams: 01/03/22 18:00 01/03/22 18:00 Orders (Tests/Meds): ED MEDICATIONS Generic Name Dose Route Start Last Admin Trade Name Freq PRN Reason Stop Dose Admin Lactated Ringer's 1,000 mls @ 999 mls/hr 01/03/22 21:00 01/03/22 20:59 Lactated Ringer's 1000 Ml Bag IV 01/03/22 22:00 999 mls/hr .Q1H1M VENESSA Administration Sodium Chloride 10 ml 01/03/22 18:05 Sodium Chloride 0.9% 10ml Flush Syringe IV 02/02/22 18:04 NEEDED PRN Maintain IV Site Discontinued Medications Generic Name Dose Route Start Last Admin Trade Name Freq PRN Reason Stop Dose Admin Aspirin 324 mg 01/03/22 20:55 01/03/22 20:56 Aspirin 81mg Chewable Tablet PO 01/03/22 20:56 324 mg ONCE ONE Administration Iopamidol 70 ml 01/03/22 21:36 Iopamidol-370 (76%);100ml Bottle IV 01/03/22 21:37 ONCE ONE Nitroglycerin 0.4 mg 01/03/22 20:55 01/03/22 20:56 Nitroglycerin 0.4mg Sl Tablet SL 01/03/22 20:56 0.4 mg ONCE ONE Administration Nitroglycerin 1 gm 01/03/22 21:15
--- NOTE | 2022-01-03 20:56 | ECG_ITS ---
APPROVED REPORT Exam: Resting ECG HR:69 bpm ECG Measurements Heart Rate 69 AXES RI 231 P 83 QRSd 96 QRS 51 QT 356 T 65 QTc 375 Conclusion SINUS RHYTHM WITH FIRST DEGREE AV BLOCK Old isolated Q wave in lead III of uncertain significance ABNORMAL ECG UNCONFIRMED REPORT Electronically signed by : Ervin Osorio MD 01/05/2022 16:48:10
[2022-01-03 21:22] LABS: Coronavirus 19, PCR Not Detected (NotDetected); Influenza A, PCR Not Detected (NotDetected); Influenza B, PCR Not Detected (NotDetected)
[2022-01-03 21:45] LABS: Troponin I < 0.01 ng/ml (0.00-0.034)
--- NOTE | 2022-01-03 22:13 | PC.NURSE ---
House notified for oJ parham to Jo for chest pain
[2022-01-03 23:01] LABS: Cholesterol 133 mg/dl (140-200); Triglycerides 270 mg/dl (30-150); VLDL Cholesterol 54 mg/dL (0-40)
[2022-01-03 23:02] LABS: Chol/HDL Ratio 6.7 (1-3.5); HDL Cholesterol 20 mg/dl (40-60)
[2022-01-03 23:06] LABS: Hemoglobin A1C 7.2 % (4.0-6.0)
--- NOTE | 2022-01-03 23:21 | PC.NURSE ---
Patient arrived to floor via wheel chair.
[2022-01-04] VITALS: PULSE 70
[2022-01-04 04:00] VITALS: BP 124/64; PULSE 60; PULSE 68; RESP 14; TEMP 36.6; O2SAT 95
[2022-01-04 05:43] LABS: POC Glucose,Bedside 117 (70-110)
[2022-01-04 07:02] LABS: Basophils # 0.1 K/mm3 (0-0.2); Basophils % 0.9 % (0.1-2.0); Eosinophils # 0.5 K/mm3 (0.0-0.4); Eosinophils % 6.9 % (0.1-12.0); Hemoglobin 12.3 g/dL (14.1-18.0); Lymphocytes # 2.5 K/mm3 (0.7-4.5); Lymphocytes % 34.8 % (10-50); Mean Corpuscular HGB Conc 32.3 g/dL (31.8-35.4); Mean Corpuscular Hemoglobin 30.7 pg (27.0-31.2); Mean Corpuscular Volume 94.8 fl (80-94); Mean Platelet Volume 8.1 fl (7.4-10.4); Monocytes # 0.4 K/mm3 (0.1-1.0); Monocytes % 4.8 % (1.7-9.3); Neutrophils # 3.8 K/mm3 (1.8-7.8); Neutrophils % 52.6 % (37.0-80.0); Platelet Count 210 K/mm3 (142-424); Red Blood Count 4.01 M/mm3 (4.60-6.20); Red Cell Distribution Width 15.2 % (11.5-17.5); White Blood Count 7.3 K/mm3 (4.8-10.8)
[2022-01-04 07:08] LABS: Anion Gap 5.8 mEq/L (5-15); Blood Urea Nitrogen 12 mg/dl (9-20); Carbon Dioxide 28 mmol/L (22.0-30.0); Chloride 109 mmol/L (98-107); Creatinine Clearance Estimated 85 mL/min (50-200); Estimated Glomerular Filt Rate 98 ml/min (>60); GFR (African American) 119 ML/MIN (>60); Glucose 120 mg/dl (74-100); Magnesium 1.4 mg/dl (1.6-2.3); Potassium 3.8 mmoL/L (3.5-5.1); Sodium 139 mmol/L (136-145)
--- NOTE | 2022-01-04 07:21 | HMH.PHAVTE ---
[facility] Pharmacy VTE Monitoring - Patient Demographics Admission date: 01/03/22 Report Date: 01/04/22 Time: 07:21 Allergies/Adverse Reactions: Patient Allergies No Known Allergies Allergy (Verified 01/03/22 21:15) Height: 1.85 m Weight: 158.984 kg Patient Problems: Current Active Problems Hyperglycemia due to type 2 diabetes mellitus (Acute) Chest pain (Acute) Obesity (Chronic) - VTE Risk Labs: VTE Related Lab Results Hgb 12.3 g/dL (14.1-18.0) L 01/04/22 06:37 Hct 38.0 % (42.0-52.0) L 01/04/22 06:37 Plt Count 210 K/mm3 (142-424) 01/04/22 06:37 BUN 12 mg/dl (9-20) 01/04/22 06:37 Creatinine 0.80 mg/dl (0.66-1.25) D 01/04/22 06:37 Estimated Creat Clear 85 mL/min (50-200) 01/04/22 06:37 Was VTE Risk Assessment Performed: Yes VTE Score: 7 VTE Risk Level: Moderate Risk - Prophylaxis VTE Prophylaxis Ordered?: Yes Types of VTE Prophylaxis: TEDS Knee High Location of Applied Device: Bilateral Lower Extremeties
[2022-01-04 07:26] VITALS: BP 138/93; PULSE 62; RESP 18; TEMP 36.4; O2SAT 94
--- NOTE | 2022-01-04 07:44 | HMH.PHAINT ---
MEDICATION RECONCILIATION COMPLETED ON PATIENT USING EXTERNAL FILL HISTORY FROM PHARMACY. -YOU GAR, JULYD
--- NOTE | 2022-01-04 07:53 | PC.NURSE ---
late entry - pt has had no acute episodes or complaints during my shift. Pt is being monitored via tele. Pt has slept well. IV infusing per order. Pt is NPO for cardiology consult. Call light in reach.
[2022-01-04 08:00] VITALS: PULSE 70
--- NOTE | 2022-01-04 08:00 | CA_ITS ---
APPROVED REPORT EXAM: Comprehensive 2D, Doppler, and color-flow Echocardiogram Sales Leader: Caroline Jefferson RDCS Ht: 6 ft 1 in Wt: 350lbs BSA: 2.73 BP: 160/78 mmHg Indications: CP,OBESITY,DM,SOA 2D Dimensions LVOT 2.25 cm (M/F) 1.5-2.5 M-Mode Dimensions RVDd 3.63 cm (0.9-2.6) LA Diam 4.44 cm (1.9-4.0) LVDd 5.20 cm (3.5-5.7) Ao Diam 3.65 cm (2.0-3.7) LVDs 3.97 cm (3.5-5.7) IVSd 0.83 cm (0.6-1.1) PWd 0.93 cm (0.6-1.1) EF (Teich) 46.90% FS 23.70% EDV (Teich) 129.50 mL ESV (Teich) 68.80 mL LV Diastology E Decel Time 220.00 (160-240 msec) E/A Ratio 0.9 MED E' 7.50 (< 7 cm/sec) E'/MED E' Ratio 9.59 (>14) LAT E' 6.90 (<10 cm/sec) E/LAT E' Ratio 10.42 (>14) Mitral Valve MV E Max Richi. 72.00 (40-130 cm/s) MV A Velocity 80.00 (40-130 cm/s) E/A Ratio 0.90 MV Decel. Time 220.00 (160-240 ms) MV PHT 64.00 ms Left Ventricle Left atrium is mildly enlarged, left ventricle is normal size, mild concentric left ventricular hypertrophy, visually estimated ejection fraction 55% with no regional wall motion abnormality, grade 1 diastolic dysfunction seen without tissue Doppler evidence of raise left atrial pressure. Right Ventricle Right atrium and right ventricle mildly enlarged with normal contractility. Aortic Valve Aortic valve is minimally thickened and fibrosed, there is no aortic stenosis or aortic insufficiency. Mitral Valve Mitral valve is grossly normal, there is trace mitral regurgitation. Tricuspid Valve Tricuspid grossly normal, there is trace tricuspid regurgitation, tricuspid regurgitation jet velocity is inadequate for calculation of the right ventricular systolic pressure. Pulmonic Valve Pulmonic valve is poorly visualized. Great Vessels Aortic root is normal size. Inferior vena cava normal size with normal inspiratory collapse. Pericardium No significant pericardial effusion noted. Conclusion 1. Mild biatrial enlargement, normal left ventricular size, mild concentric left ventricular hypertrophy, visually estimated ejection fraction 55% with no regional wall motion abnormality, grade 1 diastolic dysfunction seen without tissue Doppler evidence of raise left atrial pressure. 2. Mildly enlarged right ventricle with normal contractility. 3. Trace mitral and tricuspid regurgitation. 4. No significant pericardial effusion. 5. Inferior vena cava is normal size with normal inspiratory collapse. Electronically signed by : Lee Almaraz MD 01/04/2022 19:12:08
[2022-01-04 08:12] VITALS: PULSE 63; PULSE 65; O2SAT 92
--- NOTE | 2022-01-04 08:33 | HMH.HPDC ---
General - General Admission date:: 01/03/22 Discharge date: 01/04/22 *Admission Date: 01/03/22 *Chief complaint: Cough/congestion/chest pain *History of present illness: 61-year-old white male with history of COPD, follows with Dr. Dugan in [place], has a remote history of chest pain syndrome, and had a heart cath in 2018 that was normal and was told that he would need further evaluation/stress testing in 5 years. Over the last couple of days he had increasing cough and congestion, had a sharp chest pain. Came to the emergency department. Admitted to hospital because his chest pain responded to nitro. This morning he feels much better except he thinks it is all in my lungs. [facility] History I have reviewed the patient's past medical history: Yes Medical History: Reports:: Asthma, Chronic Obstructive Pulmonary Disease (COPD), Deep Vein Thrombosis, Diabetes Mellitus Type 2, Gastroesophageal Reflux Disease(GERD), Hyperlipidemia, Hypertension, Peripheral Artery Disease, Pulmonary Embolism Denies:: Cancer, Diabetes Mellitus Type 1, Internal Pacemaker, MRSA *Have you ever received a pneumonia vaccine?: Yes *Have you received a flu vaccine this season?: No Other Medical History: Reports: Arthritis Laterality Cases: Bilateral: Tonsillectomy Other Surgeries: Yes: Cholecystectomy. No: Pacemaker Amputation: Yes (LEFT GREAT AND SECOND TOE) Fractures: No - *Social History Last grade of school completed: 11th or 12th Smoking Status: Heavy tobacco smoker Tobacco Type: smokeless tobacco # Packs/Day (cigarettes): 0 Alcohol Intake: current Alcohol Intake Frequency:: holidays/special occasions only Substance Use Type: denies use *Occupational Status:: employed, retired Housing: house Household Members: spouse, children *Travel in the last 8 weeks: None Family Hx:: Cancer, Diabetes, Heart Attack Review of Systems - Review of Systems Review of systems:: pertinent systems reviewed and negative unless documented below - *Neurologic Denies localized weakness, Denies seizure-like activity Exam Vital signs and Labs for Last 24 Hours: Temp Pulse Resp BP Pulse Ox 97.6 F 63 18 138/93 H 92 L 01/04/22 07:26 01/04/22 08:12 01/04/22 07:26 01/04/22 07:26 01/04/22 08:12 Laboratory Results - last 24 hr 01/03/22 18:00: WBC 6.2, RBC 4.41 L, Hgb 13.6 L, Hct 42.2, MCV 95.6 H, MCH 30.9, MCHC 32.3, RDW 15.0, Plt Count 218, MPV 8.3, Neut % (Auto) 53.5, Lymph % (Auto) 32.6, Candler % (Auto) 4.5, Eos % (Auto) 7.5, Baso % (Auto) 1.9, Neut # (Auto) 3.3, Lymph # (Auto) 2.0, Candler # (Auto) 0.3, Eos # (Auto) 0.5 H, Baso # (Auto) 0.1 01/03/22 18:00: Sodium 138, Potassium 4.3, Chloride 105, Carbon Dioxide 28, Anion Gap 9.3, BUN 13, Creatinine 1.10, Estimated Creat Clear 80, Estimated GFR 68, Est GFR ( Amer) 82, Glucose 298 H, Calcium 7.9 L, Troponin I < 0.01, NT-Pro-B Natriuret Pep 186 H 01/03/22 18:00: Hemoglobin A1c 7.2 H 01/03/22 18:00: Triglycerides 270 H, Cholesterol 133 L, LDL Cholesterol Direct 82.50 L, VLDL Cholesterol 54 H, HDL Cholesterol 20 L, Cholesterol/HDL Ratio 6.7 H 01/03/22 21:06: Troponin I < 0.01 01/03/22 21:17: SARS-CoV-2 (PCR) Not detected, Influenza A Untype (PCR) Not detected, Influenza Type B (PCR) Not detected 01/04/22 05:35: POC Glucose 117 H 01/04/22 06:37: WBC 7.3, RBC 4.01 L, Hgb 12.3 L, Hct 38.0 L, MCV 94.8 H, MCH 30.7, MCHC 32.3, RDW 15.2, Plt Count 210, MPV 8.1, Neut % (Auto) 52.6, Lymph % (Auto) 34.8, Candler % (Auto) 4.8, Eos % (Auto) 6.9, Baso % (Auto) 0.9, Neut # (Auto) 3.8, Lymph # (Auto) 2.5, Candler # (Auto) 0.4, Eos # (Auto) 0.5 H, Baso # (Auto) 0.1 01/04/22 06:37: Sodium 139, Potassium 3.8, Chloride 109 H, Carbon Dioxide 28, Anion Gap 5.8, BUN 12, Creatinine 0.80 D, Estimated Creat Clear 85, Estimated GFR 98, Est GFR ( Amer) 119 D, Glucose 120 H D, Calcium 8.0 L, Magnesium 1.4 L I & O for Last 24 hours: Intake & Output 01/01/22 01/02/22 01/03/22 01/04/22 11:59 11:59 11:59 11:59 Intake Total 1000
--- NOTE | 2022-01-04 09:57 | PC.NURSE ---
Spoke with Yissel from care management stated that Dr. Osorio wants to wait a few hours to make sure the breathing treatments are starting to work for him before they D/C. She will call me when it is okay to proceed with D/C.
--- NOTE | 2022-01-04 10:05 | PC.NURSE ---
Spoke with Yissel stated that between 11-12 if pt is feeling fine he is able to go.
[2022-01-04 10:41] VITALS: PULSE 59; O2SAT 95
--- NOTE | 2022-01-04 11:16 | HMH.PHAINT ---
Addendum entered and electronically signed by Toy Alfred, PharmJojo 01/04/22 11:18: EDIT: DISCHARGE MEDICATION COUNSELING COMPLETED, NOT RECONCILIATION. Original Note: MEDICATION RECONCILIATION COMPLETE. DISCUSSED SHORT COURSE LEVAQUIN AND PREDNISONE, HOW TO TAKE (WITH FOOD, BID WITH MEALS FOR THE STEROID, DAILY WITH FOOD FOR THE ANTIBIOTIC). PATIENT ENDORSED NO QUESTIONS AT THIS TIME.
--- NOTE | 2022-01-04 11:32 | PC.NURSE ---
Spoke with carmine from Dr. Osorio's office is okay with Pt D/C
--- NOTE | 2022-01-05 11:45 | CARE MANAGER ---
Contacted patient regarding hospital discharge follow up. Patient states he feels better today, but is still weak. 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 He has not used his nebulizer today and we discussed importance of using it. 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 He denies any questions or concerns. SHAHEED Cardoso
== END 2022-01-04 12:00 | disposition home or self-care (01) ==
LOC: ER 22:13 → 2ND 22:16
PROVIDERS: Emergency Medicine; Admitting Provider Internal Medicine Adolescent Medicine; Emergency Provider Emergency Medicine; PCP Nurse Practitioner Family; Visit Provider Internal Medicine Adolescent Medicine
DX: E11.65 Type 2 diabetes mellitus with hyperglycemia (principal); R07.9 Chest pain, unspecified; Z79.84 Long term (current) use of oral hypoglycemic drugs; Z79.899 Other long term (current) drug therapy; E66.01 Morbid (severe) obesity due to excess calories; Z68.42 Body mass index [BMI] 45.0-49.9, adult; R06.09 Other forms of dyspnea; J44.9 Chronic obstructive pulmonary disease, unspecified; I10 Essential (primary) hypertension; K21.9 Gastro-esophageal reflux disease without esophagitis; Z20.822 Contact with and (suspected) exposure to COVID-19
CPT/HCPCS: G0378; 36415; 71045; 71275; 80048; 80061; 82962; 83036; 83735; 83880; 84484; 85025; 93005; 93306; 94640; 96365; 99285; C9803; U0003; U0005

== ENCOUNTER 2023-07-25 18:14 | Emergency (ER) | payer MEDICARE, MEDICAID, SELFPAY ==
--- NOTE | 2023-07-25 18:14 | ECG_ITS ---
APPROVED REPORT Exam: Resting ECG HR:89 bpm ECG Measurements Heart Rate 89 AXES VA 207 P 183 QRSd 136 QRS 72 QT 351 T 52 QTc 397 Conclusion SINUS RHYTHM RIGHT BUNDLE BRANCH BLOCK [120+ ms QRS DURATION, UPRIGHT V1, 40+ ms S IN I/aVL/V4/V5/V6] POSSIBLE ANTERIOR MYOCARDIAL INFARCTION , OF INDETERMINATE AGE [30 ms Q WAVE IN V3/V4, OR R < 0.2 mV IN V4] ABNORMAL ECG UNCONFIRMED REPORT Electronically signed by : Ervin Osorio MD 07/25/2023 19:35:35
[2023-07-25 18:15] VITALS: BP 144/85; PULSE 89; RESP 17; TEMP 37.1; O2SAT 96; BMI 35.4
--- NOTE | 2023-07-25 18:24 | XR_ITS ---
PROCEDURE INFORMATION: Exam: XR Chest Exam date and time: 07/25/2023 6:43 PM Age: 63 years old Clinical indication: Shortness of breath; Sternal or substernal pain; Additional info: Chest pain TECHNIQUE: Imaging protocol: Radiologic exam of the chest. Views: 1 view. COMPARISON: CR XR CHEST PORTABLE 01/03/2022 6:12 PM FINDINGS: Lungs: No evidence of acute airspace consolidation. No pulmonary edema. Multifocal areas of subsegmental atelectasis/scarring and pleuroparenchymal scarring, not significantly changed from 01/03/2022 radiograph, Pleural spaces: No significant pleural effusion. No pneumothorax. Heart/Mediastinum: Cardiomediastinal silouhette is within normal limits. Bones/joints: No evidence of acute osseous abnormality. IMPRESSION: No evidence of acute cardiopulmonary disease.
--- NOTE | 2023-07-25 18:24 | PC.NURSE ---
covid swab sent to lab
--- NOTE | 2023-07-25 18:28 | PC.NURSE ---
XR AT BEDSIDE
[2023-07-25 18:32] LABS: Coronavirus 19, PCR Not Detected (NotDetected); Influenza A, PCR Not Detected (NotDetected); Influenza B, PCR Not Detected (NotDetected)
[2023-07-25 18:34] LABS: Basophils % 0.2 % (0.1-2.0); Eosinophils # 0.2 K/mm3 (0.0-0.4); Eosinophils % 2.1 % (0.1-12.0); Hematocrit 46.3 % (42.0-52.0); Hemoglobin 14.8 g/dL (14.1-18.0); Lymphocytes # 0.6 K/mm3 (0.7-4.5); Mean Corpuscular HGB Conc 32.1 g/dL (31.8-35.4); Mean Corpuscular Volume 93.7 fl (80-94); Mean Platelet Volume 7.7 fl (7.4-10.4); Monocytes # 0.4 K/mm3 (0.1-1.0); Monocytes % 4.8 % (1.7-9.3); Neutrophils # 6.6 K/mm3 (1.8-7.8); Neutrophils % 84.9 % (37.0-80.0); Platelet Count 223 K/mm3 (142-424); Red Blood Count 4.94 M/mm3 (4.60-6.20); White Blood Count 7.7 K/mm3 (4.8-10.8)
[2023-07-25 18:45] LABS: Alanine Aminotransferase 28 U/L (12-78); Albumin Level 3.6 g/dl (3.5-5.0); Albumin/Globulin Ratio 1.1 (1.1-1.8); Alkaline Phosphatase 97 U/L (38-126); Anion Gap 11.1 mEq/L (5-15); Aspartate Amino Transferase 30 U/L (17-59); Bilirubin,Total 0.9 mg/dl (0.2-1.3); Blood Urea Nitrogen 20 mg/dl (9-20); Calcium 8.1 mg/dl (8.4-10.2); Carbon Dioxide 26 mmol/L (22.0-30.0); Chloride 107 mmol/L (98-107); Creatinine Clearance Estimated 125 mL/min (50-200); Estimated Glomerular Filt Rate 68 ml/min (>60); GFR (African American) 82 ML/MIN (>60); Globulin 3.4 g/dL (1.3-3.2); Glucose 81 mg/dl (74-100); Potassium 4.1 mmoL/L (3.5-5.1); Sodium 140 mmol/L (136-145)
[2023-07-25 18:57] LABS: Troponin I < 0.01 ng/ml (0.00-0.034)
--- NOTE | 2023-07-25 19:08 | HMH.EDGENADL ---
Discharge Plan Disposition Patient Disposition: Home, Self-Care Chief Complaint: Chest Pain Prescriptions Prescriptions: No Action sitagliptin phosphate 100 mg tablet 100 mg PO DAILY Qty: 30 0RF gabapentin 800 MG tablet 800 mg PO QID aspirin 81 MG tablet,delayed release (DR/EC) 81 mg PO DAILY famotidine 20 MG tablet 20 mg PO BID umeclidinium 62.5 MCG blister with device 1 puff IH DAILY lisinopril 10 MG tablet 10 mg PO DAILY escitalopram oxalate 10 MG tablet 10 mg PO HS fluticasone furoate-vilanterol 1 EACH blister with device 1 puff IH DAILY tamsulosin 0.4 MG capsule 0.4 mg PO DAILY ipratropium-albuterol 3 ML solution for nebulization 3 ml IH QIDRT glipizide 5 MG tablet extended release 24 hr 5 mg PO DAILY doxepin 10 MG capsule 10 mg PO HS metoprolol tartrate 25 MG tablet 25 mg PO DAILY duloxetine 60 MG capsule,delayed release(DR/EC) 60 mg PO DAILY tiotropium bromide 4 GM mist 2 puffs IH DAILY prednisone 20 MG tablet 20 mg PO BID 7 Days Qty: 14 0RF levofloxacin 500 MG tablet 500 mg PO DAILY Qty: 7 0RF Referrals Follow up/Referrals: Anaya Dugan PA [Primary Care Provider] - See instructions Raphael Jeffrey MD [Staff Physician] - See instructions Activity Restrictions/Add. Instructions Additional Instructions/Restrictions: Call your family doctor to establish care for this visit to the emergency department and schedule follow-up within 48 hours to ensure improvement. If you have any worsening of your condition or any other concerning signs or symptoms, return to the emergency department or your primary care doctor for further evaluation. Cardiology information here, call them for further follow-up. Clinical Impressions Clinical Impression: Chest pain Discharge ED Provider: Dax Grace General Adult HPI General Chief complaint: Chest Pain Stated complaint: Chest Pain Time Seen by Provider: 07/25/23 18:16 Mode of Arrival: Ambulatory Limitations: No Limitations Description of Symptoms (Recalled from ER Triage Doc. by RN): PT REPORTS LEFT SIDED CHEST PRESSURE THAT RADIATES TO BACK. 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 REPORTS SHORTNESS OF BREATH. DENIES N/V History of Present Illness HPI narrative: 63-year-old male history of COPD (not induced by smoking), diabetes, hypertension, hyperlipidemia, PE currently on Eliquis presenting with chest pain. Patient states chest pain started today, 07/25, around 10 in the morning. This was approximately 8 hours prior to arrival. He was playing horseshoes when it started. Does not radiate, feels like a pressure. No associated nausea or vomiting, diaphoresis, syncopal episode. Patient states that both arms feel heavy. He has not been coughing more than usual, producing more or different sputum. Related Data Home Medications Medication Instructions Recorded Confirmed gabapentin 800 mg tablet 800 mg PO QID NEUROPATHY 09/29/18 01/04/22 aspirin 81 mg tablet,delayed 81 mg PO DAILY heart health 08/17/21 01/03/22 release escitalopram oxalate 10 mg tablet 10 mg PO HS MOOD 08/17/21 01/03/22 famotidine 20 mg tablet 20 mg PO BID GERD 08/17/21 01/03/22 fluticasone furoate 100 1 puff IH DAILY COPD 08/17/21 01/03/22 mcg-vilanterol 25 mcg/dose inhalation powder lisinopril 10 mg tablet 10 mg PO DAILY Hypertension 08/17/21 01/03/22 tamsulosin 0.4 mg capsule 0.4 mg PO DAILY PROSTATE 08/17/21 01/03/22 umeclidinium 62.5 mcg/actuation 1 puff IH DAILY COPD 08/17/21 01/03/22 blister powder for inhalation ipratropium 0.5 mg-albuterol 3 mg 3 ml IH QIDRT Breathing problems 01/03/22 01/03/22 (2.5 mg base)/3 mL nebulization soln doxepin 10 mg capsule 10 mg PO HS MOOD 01/04/22 01/04/22 duloxetine 60 mg capsule,delayed 60 mg PO DAILY NEUROPATHY 01/04/22 01/04/22 release glipizide 5 mg tablet, extended 5 mg PO DAILY Diabet
[2023-07-25 19:12] VITALS: PULSE 83
[2023-07-25 21:14] LABS: Troponin I < 0.01 ng/ml (0.00-0.034)
[2023-07-25 21:25] VITALS: BP 144/85; PULSE 88; RESP 19; TEMP 36.9; O2SAT 95
== END 2023-07-25 21:25 | disposition home or self-care (01) ==
PROVIDERS: Emergency Provider Emergency Medicine; PCP Nurse Practitioner Family
DX: R07.89 Other chest pain (principal); R94.31 Abnormal electrocardiogram [ECG] [EKG]; J44.9 Chronic obstructive pulmonary disease, unspecified; I10 Essential (primary) hypertension; E78.5 Hyperlipidemia, unspecified; E11.9 Type 2 diabetes mellitus without complications; F17.290 Nicotine dependence, other tobacco product, uncomplicated; Z79.01 Long term (current) use of anticoagulants; Z79.84 Long term (current) use of oral hypoglycemic drugs
CPT/HCPCS: 36415; 71045; 80053; 84484; 85025; 87636; 93005; 99284

== ENCOUNTER 2023-07-27 14:54 | Observation (INO) | payer MEDICARE, MEDICAID, SELFPAY ==
[2023-07-27] VITALS (8 sets, daily range): BP systolic 93–135; BP diastolic 53–71; PULSE 65–90; RESP 18; TEMP 36.4–37; O2SAT 95–100; BMI 35.9; BMI 27.0
--- NOTE | 2023-07-27 15:07 | EXP.CARD.PN ---
Subjective Subjective Date: 07/27/23 Time: 15:07 Principal diagnosis: Unstable angina Interval history: 63-year-old white male seen in the office today for recurrent angina over the last 2 weeks. He was seen in the ER earlier this month and ruled out and was subsequently sent home. 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 He returns today claiming recurrent chest pain even at rest. He was given a sublingual nitroglycerin in the office with improvement in symptoms. Patient did have cardiac catheterization in 2014 and 2016 with mild coronary artery disease but increased left ventricular end-diastolic pressure in the 30-35 mmHg range. EKG today and from the ER visit last week show a new right bundle branch block compared with tracing from 12/2021. Patient was last seen in our office in 2018. Discussed with Dr. Jeffrey who recommended admission for left heart catheterization tomorrow. Discussed with Dr. Vick who agreed to admit the patient overnight for beginning of treatment 1. Coronary artery disease A. Abnormal Myoview stress test September 2015 B. Cardiac catheterization 09/25/2015 revealing nonflow limiting coronary artery disease with mild vascular ectasia in the LAD and dominant Cx. Slow flow down the RCA suggesting endothelial dysfunction. Borderline elevated LVEDP likely consistent with obesity. Normal ejection fraction medical therapy recommended. C. Cardiac cath, 05/28/2017, 1. Mild nonocclusive CAD with a small degree of mild vascular ectasia which is clinically insignificant 2. Preserved ejection fraction 3. Moderate to severely elevated LVEDP (30-35 mm Hg) 2. Diabetes mellitus 3. Obesity 4. Chronic obstructive pulmonary disease without history of tobacco use. 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 CT of chest, 05/2017, 1. No acute finding. 2. No evidence of pulmonary embolus or aortic aneurysm. 3. Atelectatic or fibrotic changes in the upper and lower lobes 5. Hyperlipidemia 6. Hypertension 7. Suspected PAD A. Right lower extremity arteriogram, 10/02/2018, normal right lower extremity arterial vasculature Exam Constitutional Constitutional: mild distress *Routine Respiratory Exam Respiratory: Present CTA bilaterally *Routine Cardiovascular Exam Cardiovascular: Present RRR *Routine Extremities Exam Extremities: Absent edema *Routine Neurological Exam Neurological: Present alert, oriented X3 and CN II-XII intact Progress Note: A&P Assessment and plan (1) Crescendo angina: Status: Acute (2) Abnormal electrocardiogram [ECG] [EKG]: Status: Acute (3) Diabetes mellitus, insulin dependent (IDDM), controlled: Status: Acute (4) CAD (coronary artery disease): Status: Acute (5) Hypertensive heart disease: Status: Acute Assessment and Plan Assessment and Plan for All Diagnoses:: 1. Unstable angina/crescendo angina patient with known diabetes and hypertensive heart disease with prior cardiac cath in 2017 showing mild coronary artery disease. Admit for stabilization with Nitropaste and resumption of home medications including OCHOA or ARB and beta-paula therapy. Plan for left heart catheterization tomorrow 2. Diabetes mellitus, defer to hospitalist 3. Obesity 4. Abnormal EKG with new right bundle branch block compared to 12/2021 tracing 5. Hyperlipidemia, continue statin therapy 6. Hypertensive heart disease, continue metoprolol and ARB therapy. Check echocardiogram this admission Further recommendations pending above results.
--- NOTE | 2023-07-27 15:10 | PC.NURSE ---
came to floor by w/c from front lobby admissions
--- NOTE | 2023-07-27 15:52 | EXP.HP ---
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 His past medical history is significant for coronary artery disease, COPD, diabetes and BPH. He reports his last heart cath was in 2016 identifying no obstructive disease. 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 His ED ECG and troponins were negative so he was discharged home to follow-up with cardiology, which he did today. He reported to the cardiology provider that he continues to have pressure-like chest pain across his chest and radiates to his arms. He rates the pain as greater than 7 on a 1-10 pain scale and it occurs with exertion. He has identified associated shortness of air but no diaphoresis, palpitations, confusion or syncopal episodes. He denies associated nausea, vomiting & diarrhea. His risk factors include diabetes and hypertension. 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 He describes a non-smoking/tobacco use history. His HEART Score =6 and his NATHANIEL Score (UA)=4. [facility] Medical History (Updated 07/27/23 @ 16:06 by Harshad Barrera MD) BMI 36.0-36.9,adult BPH (benign prostatic hyperplasia) CAD (coronary artery disease) COPD (chronic obstructive pulmonary disease) Diabetes Hypertension Surgical History (Updated 07/27/23 @ 16:06 by Harshad Barrera MD) History of left heart catheterization Left great toe amputee S/P cholecystectomy Family History (Updated 07/27/23 @ 16:07 by Harshad Barrera MD) Father Brain cancer Mother Breast cancer Social History (Updated 07/27/23 @ 16:09 by Harshad Barrera MD) Smoking Status: Never smoker alcohol intake: never substance use type: denies use current occupational status: employed and retired Travel in the last 8 weeks: None household members: spouse and children housing: house 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 [employer] caffeine: Yes virgilio/latter day: [employer] Review of Systems Review of Systems Review of systems:: pertinent systems reviewed and negative unless documented below *Cardiovascular Cardiovascular: Reports chest pain, Reports chest pain at rest, Reports dyspnea, Reports dyspnea on exertion, Denies lightheadedness, Denies palpitations, Denies rapid heart rate and Denies syncope *Respiratory Respiratory: Denies cough, Reports dyspnea, Reports dyspnea on exertion and Denies pain on inspiration *Gastrointestinal Gastrointestinal: Denies loose stools, Denies nausea and Denies vomiting *Neurologic Neurologic: Denies syncope Endocrine Endocrine: Denies palpitations Meds Home Medications and Allergies Home Medications Medication Instructions Recorded Confirmed Type lisinopril 10 mg tablet 10 mg PO DAILY Hypertension 08/17/21 07/27/23 History tamsulosin 0.4 mg capsule 0.4 mg PO DAILY PROSTATE 08/17/21 07/27/23 History glipizide 5 mg tablet, extended 5 mg PO DAILY Diabetes 01/04/22 07/27/23 History release 24 hr metoprolol tartrate 25 mg tablet 25 mg PO DAILY Hypertension 01/04/22 07/27/23 History atorvastatin 40 mg tablet 40 mg PO DAILY 07/27/23 07/27/23 History fluticasone furoate 200 1 inh inhalation DAILY 07/27/23 07/27/23 History mcg-vilanterol 25 mcg/dose inhalation powder (Breo Ellipta) ibuprofen 800 mg tablet 800 mg PO Q8H Pain 07/27/23 07/27/23 History mecobalamin (vitamin B12) 500 mcg 500 mcg PO DAILY Supplement 07/27/23 07/27/23 History chewable tablet New Prescriptions to Start Prescriptions: Allergies Allergy/AdvReac Type Severity Reaction Status Date / Time No Known Allergies Allergy Verified 07/27/23 14:10 Exam Data for Last 24 hours Vital signs and Labs for Last 24 H
--- NOTE | 2023-07-27 16:17 | CA_ITS ---
APPROVED REPORT EXAM: Comprehensive 2D, Doppler, and color-flow Echocardiogram Edger Automatic: SASHA Bryant, RVS Ht: 6 ft 2 in Wt: 287lbs BSA: 2.53 BP: 135/71 mmHg Indications: Angina, CAD, DM, Obesity, COPD, CP, HTN Echo Enhancing Agent Comments: Patient scanned bedside: Poor acoustics throughout exam due to patient factors 2D Dimensions IVSd 1.19 cm M: 0.6-1.2 LVEF (Visual) 48.50 % PWd 1.22 cm M: 0.6 - 1.2 LA Volume 48.60 mL LVDd 5.46 cm M: 4.2 - 5.9 LA Volume Index 19.13 mL/m2 (M/F) 16-34 LVDs 4.11 cm M: 2.5 - 4.0 Aortic Root 3.12 cm M: 3.1 - 3.7 Left Atrium 3.74 cm M: 3.0 - 4.0 LVOT 2.02 cm (M/F) 1.5-2.5 M-Mode Dimensions LA Diam 3.60 cm (1.9-4.0) Ao Diam 3.59 cm (2.0-3.7) EPSs 0.57 cm TAPSE 1.79 (<1.7) LV Diastology E Decel Time 250.00 (160-240 msec) E/A Ratio 1.09 MED E' 3.90 (< 7 cm/sec) MED A' 7.30 cm/s E'/MED E' Ratio 29.77 (>14) LAT E' 7.30 (<10 cm/sec) LAT A' 9.40 cm/s E/LAT E' Ratio 15.90 (>14) Aortic Valve LVOT Max 123.00 (70-110 cm/s) LVOT VTI 27.96 cm AoV Peak Richi. 149.00 (50-130 cm/s) AO Peak GR. 8.90 mmHg AO Mean GR. 4.40 (<5 mmHg) AO VTI 31.57 (18-25 cm) VANDANA (VTI) 2.84 (2.5-4.5 cm2) Mitral Valve MV A Velocity 107.00 (40-130 cm/s) E/A Ratio 1.09 MV Decel. Time 250.00 (160-240 ms) MV Mean Gr. 2.90 (<2mmHg) Pulmonary Valve PV Peak Velocity 91.00 (50-150 cm/s) Left Ventricle The left ventricle is normal size. The left ventricular systolic function is normal. The left ventricular ejection fraction is within the normal range. There is increased LV wall thickness. There is normal LV segmental wall motion. Diastolic function is indeterminate. LVEF is 60%. Right Ventricle The right ventricle is normal size. The right ventricular systolic function is normal. There is increased RV wall thickness. Atria The left atrium size is normal. The right atrium size is normal. There is no Doppler evidence of interatrial shunt. Aortic Valve The aortic valve is mildly thickened. There is no aortic valvular stenosis. No aortic regurgitation is present. Mitral Valve Mild mitral annular calcification. The mitral valve leaflets are mildly thickened. No evidence of mitral valve stenosis. Trace mitral regurgitation. Tricuspid Valve The tricuspid valve leaflets are thin and pliable. Trace mitral regurgitation. There is insufficient TR jet to estimate RVSP. Pulmonic Valve The pulmonary valve is normal in structure. Trace pulmonic regurgitation. Great Vessels The aortic root is normal in size. The ascending aorta is normal in size. IVC is normal in size and collapses >50% with inspiration. Pericardium There is no pericardial effusion. Other Information Study Quality: Technically Difficult Conclusion This was a technically difficult study due to poor acoustic windows. Normal biventricular systolic function. No evidence of wall motion abnormalities. No significant valvular stenosis or regurgitation. Electronically signed by : Denisse Costa MD 07/27/2023 23:29:21
[2023-07-27 16:38] LABS: Basophils % 0.3 % (0.1-2.0); Eosinophils # 0.4 K/mm3 (0.0-0.4); Eosinophils % 4.5 % (0.1-12.0); Hematocrit 39.6 % (42.0-52.0); Hemoglobin 13.9 g/dL (14.1-18.0); Lymphocytes # 1.4 K/mm3 (0.7-4.5); Lymphocytes % 17.8 % (10-50); Mean Corpuscular HGB Conc 35.1 g/dL (31.8-35.4); Mean Corpuscular Hemoglobin 32.8 pg (27.0-31.2); Mean Corpuscular Volume 93.5 fl (80-94); Mean Platelet Volume 9.2 fl (7.4-10.4); Monocytes # 0.6 K/mm3 (0.1-1.0); Neutrophils # 5.6 K/mm3 (1.8-7.8); Neutrophils % 70.5 % (37.0-80.0); Platelet Count 194 K/mm3 (142-424); Red Blood Count 4.24 M/mm3 (4.60-6.20); Red Cell Distribution Width 15.1 % (11.5-17.5)
[2023-07-27 16:44] LABS: INR 1.05 (0.9-1.1); Prothrombin Time 11.3 seconds (10.1-12.5)
[2023-07-27 17:10] LABS: POC Glucose,Bedside 76 (70-110)
--- NOTE | 2023-07-27 18:11 | PC.NURSE ---
A&OX4. TOLERATING RA WELL. PT HAS HAD NO C/O SINCE ARRIVAL TO FLOOR. SITTING UP IN BED WATCHING TV. VSS.
[2023-07-27 18:35] LABS: Anion Gap 9.4 mEq/L (5-15); Blood Urea Nitrogen 20 mg/dl (9-20); Calcium 7.2 mg/dl (8.4-10.2); Carbon Dioxide 24 mmol/L (22.0-30.0); Chloride 108 mmol/L (98-107); Chol/HDL Ratio 3.7 (1-3.5); Cholesterol 55 mg/dl (140-200); Creatinine Clearance Estimated 139 mL/min (50-200); Estimated Glomerular Filt Rate 75 ml/min (>60); GFR (African American) 91 ML/MIN (>60); Glucose 63 mg/dl (74-100); HDL Cholesterol 15 mg/dl (40-60); Magnesium 1.4 mg/dl (1.6-2.3); Potassium 3.4 mmoL/L (3.5-5.1); Sodium 138 mmol/L (136-145); Triglycerides 83 mg/dl (30-150); VLDL Cholesterol 17 mg/dL (0-40)
--- NOTE | 2023-07-27 18:39 | PC.NURSE ---
PT REPORTED CHEST PAIN, 10 ON A 1-10 SCALE. GAVE MORPHINE PER MAR, REASSESSED PT AND PT FOUND TO BE PAIN FREE AND MUCH MORE COMFORTABLE AT THIS TIME.
[2023-07-27 18:45] LABS: Direct LDL Cholesterol 33.47 mg/dL (100-129)
[2023-07-27 18:58] LABS: Hemoglobin A1C 5.1 % (4.0-6.0)
[2023-07-27 19:05] LABS: Thyroid Stimulating Hormone 1.56 uIU/mL (0.465-4.68)
[2023-07-27 19:11] LABS: Troponin I < 0.01 ng/ml (0.00-0.034)
[2023-07-27 21:07] LABS: POC Glucose,Bedside 69 (70-110)
--- NOTE | 2023-07-27 22:00 | PC.NURSE ---
LFA IV infiltrated, 20g RFA placed.
[2023-07-27 22:35] LABS: Troponin I < 0.01 ng/ml (0.00-0.034)
[2023-07-27 22:39] LABS: POC Glucose,Bedside 71 (70-110)
[2023-07-27 22:39] LABS: POC Glucose,Bedside 57 (70-110)
--- NOTE | 2023-07-27 22:41 | PC.NURSE ---
BS 2056: 69, 2199: 57 gave oj pb crackers, 2126: 71 gave grape juice, pb, and crackers again r/t NPO status at midnight.
--- NOTE | 2023-07-27 23:29 | PC.NURSE ---
Bladder scanned patient at 2310, scanned volume of 50ml, no further action at this time. Irma Carroll from ED reports patients stated he is in and out cathed 4-5 times a day, and the had just in and out cathed him shortly before arriving to the ED.
[2023-07-28] VITALS (23 sets, daily range): BP systolic 87–121; BP diastolic 46–89; PULSE 50–80; RESP 16–20; TEMP 36.6–37; O2SAT 90–99; BMI 35.4
--- NOTE | 2023-07-28 | IR_ITS ---
APPROVED REPORT Patient Location: [facility] [employer] Wafer Breaker: MARY Hogan RT (R) PROCEDURES Left heart catheterization Left ventriculogram Selective coronary angiogram INDICATION Unstable angina Informed consent was obtained prior to the procedure. COMPLICATIONS None Estimated Blood Loss: Less than 10 ml TECHNIQUE One percent lidocaine used to anesthetize the right anterior aspect of the wrist. The right radial artery was accessed via the Seldinger technique. A 6 [place] sheath was placed in the right radial artery. 2.5 mg of Verapamil, 800 mcg of nitroglycerin, 1mg Lidocaine and 5000 U Heparin were given through the arterial sheath. The papa catheter was also used to perform left heart catheterization, left ventriculogram and selective coronary angiogram. At the end of the procedure the sheath was removed good hemostasis was achieved using Traclet band, patient was transferred to the postop holding area in stable condition. ANGIOGRAPHIC RESULTS The left main artery Normal The left anterior descending artery Mild diffuse vascular ectasia with wide patency of the coronary arteries with diffuse 10% luminal irregularities accompanied by NATHANIEL II flow The circumflex artery Large dominant with mild diffuse vascular ectasia accompanied by mild diffuse 10% luminal irregularities also accompanied by NATHANIEL II flow The right coronary artery Nondominant with NATHANIEL II flow The NIX ventriculogram reveals Preserved 60% The left ventricular end-diastolic pressure Severely elevated at 30 mmHg IMPRESSION Mild vascular ectasia accompanied by NATHANIEL II flow all consistent with diastolic dysfunction and endothelial dysfunction Mild atheromatous disease all of which is nonflow limiting Preserved ejection fraction Severely elevated LVEDP PLAN 1. Medical management for diastolic dysfunction, coronary artery disease, and endothelial dysfunction Electronically signed by : Raphael Jeffrey MD 07/28/2023 15:11:29
--- NOTE | 2023-07-28 01:26 | ECG_ITS ---
APPROVED REPORT Exam: Resting ECG HR:72 bpm ECG Measurements Heart Rate 72 AXES AR 266 P 92 QRSd 147 QRS 89 QT 407 T 24 QTc 431 Conclusion SINUS RHYTHM WITH FIRST DEGREE AV BLOCK RIGHT BUNDLE BRANCH BLOCK [120+ ms QRS DURATION, UPRIGHT V1, 40+ ms S IN I/aVL/V4/V5/V6] ABNORMAL ECG INTERPRETATION BASED ON A DEFAULT AGE OF 40 YEARS UNCONFIRMED REPORT Electronically signed by : Ervin Osorio MD 07/30/2023 11:06:03
--- NOTE | 2023-07-28 06:00 | PC.NURSE ---
fsbs 63, NPO status r/t bebo heart cath - called julius negrete - new order for 25ml of d50
[2023-07-28 07:04] LABS: Adenovirus F 40/41, stool Not Detected (NotDetected); Campylobacter Not Detected (NotDetected); Clostridium Difficile A/B, PCR Not Detected (NotDetected); Cryptosporidium Not Detected (NotDetected); Cyclospora Cayetanesis Not Detected (NotDetected); Entamoeba histolytica Not Detected (NotDetected); Enteroaggregative E coli Not Detected (NotDetected); Enteropathogenic E coli Not Detected (NotDetected); Enterotoxigenic E coli Not Detected (NotDetected); Giardia lamblia Not Detected (NotDetected); Plesimonas Shigalloides, PCR Not Detected (NotDetected); Salmonella, PCR Not Detected (NotDetected); Shiga-like toxin E coli Not Detected (NotDetected); Shigella Enterovasive E coli Not Detected (NotDetected); Vibrio Cholerae Not Detected (NotDetected); Vibrio, PCR Not Detected (NotDetected); Yersinia Entercolitica, PCR Not Detected (NotDetected)
[2023-07-28 07:05] LABS: Astrovirus Not Detected (NotDetected); Rotavirus A Not Detected (NotDetected); Sapovirus Not Detected (NotDetected)
--- NOTE | 2023-07-28 08:04 | PC.NURSE ---
Morning round on pt complete. whiteboard updated. no pt requests at this time.
--- NOTE | 2023-07-28 08:16 | PC.NURSE ---
1/2 inch nitro paste left chest per Hill for chest pain given.
--- NOTE | 2023-07-28 08:22 | EXP.CARD.PN ---
Subjective Subjective Date: 07/28/23 Time: 08:22 Principal diagnosis: Unstable angina Interval history: 63-year-old white male in bed in no acute distress. He relates some diarrhea overnight which has improved after being given medication. He still relates some chest discomfort but troponins have returned normal x2 overnight. We will give him Nitropaste to see if this improves his symptoms. Exam Data for Last 24 hours Vital signs and Labs for Last 24 Hours: Temp Pulse Resp BP Pulse Ox O2 Del Method O2 Flow Rate 98.1 F 66 18 94/46 L 94 L Room Air 2 07/28/23 07:49 07/28/23 07:49 07/28/23 07:49 07/28/23 07:49 07/28/23 07:49 07/28/23 07:49 07/27/23 21:34 Laboratory Results - last 24 hr 07/27/23 16:00: WBC 8.0, RBC 4.24 L, Hgb 13.9 L, Hct 39.6 L, MCV 93.5, MCH 32.8 H, MCHC 35.1, RDW 15.1, Plt Count 194, MPV 9.2, Neut % (Auto) 70.5, Lymph % (Auto) 17.8, [place] % (Auto) 7.0, Eos % (Auto) 4.5, Baso % (Auto) 0.3, Neut # (Auto) 5.6, Lymph # (Auto) 1.4, [place] # (Auto) 0.6, Eos # (Auto) 0.4, Baso # (Auto) 0.0, PT 11.3, INR 1.05, Hemoglobin A1c 5.1, Troponin I < 0.01 07/27/23 16:53: POC Glucose 76 07/27/23 18:15: Sodium 138, Potassium 3.4 L, Chloride 108 H, Carbon Dioxide 24, Anion Gap 9.4, BUN 20, Creatinine 1.00, Estimated Creat Clear 139, Estimated GFR 75, Est GFR ( Amer) 91, Glucose 63 L, Calcium 7.2 L, Magnesium 1.4 L, Triglycerides 83, Cholesterol 55 L, LDL Cholesterol Direct 33.47 L, VLDL Cholesterol 17, HDL Cholesterol 15 L, Cholesterol/HDL Ratio 3.7 H, TSH 1.56 07/27/23 20:57: POC Glucose 69 L 07/27/23 21:50: Troponin I < 0.01 07/27/23 22:00: POC Glucose 57 L 07/27/23 22:27: POC Glucose 71 I & O for Last 24 hours: Intake & Output 07/25/23 07/26/23 07/27/23 07/28/23 11:59 11:59 11:59 11:59 Intake Total 1818 / 1818 Output Total 1100 / 1100 Balance 718 / 718 Weight 285 lb 6 oz Constitutional Constitutional: no acute distress *Routine Respiratory Exam Respiratory: Present CTA bilaterally *Routine Cardiovascular Exam Cardiovascular: Present RRR *Routine Neurological Exam Neurological: Present alert and oriented X3 Progress Note: A&P Assessment and plan (1) Unstable angina: Status: Acute (2) CAD (coronary artery disease): Status: Acute (3) Abnormal electrocardiogram [ECG] [EKG]: Status: Acute (4) Diabetes: Status: Acute (5) COPD (chronic obstructive pulmonary disease): Status: Chronic (6) BMI 36.0-36.9,adult: Status: Acute (7) Hypokalemia: Status: Acute (8) Hypomagnesemia: Status: Acute Assessment and Plan Assessment and Plan for All Diagnoses:: 1. Unstable angina/crescendo angina patient with known diabetes and hypertensive heart disease - prior cardiac cath in 2014 and 2016 showing mild coronary artery disease. - Plan for left heart catheterization today - Continue DAPT with aspirin and Plavix 2. Diabetes mellitus, defer to hospitalist -Hemoglobin A1c is 5.1 this admission 3. Obesity 4. Abnormal EKG with new right bundle branch block compared to 12/2021 tracing 5. Hyperlipidemia -continue statin therapy -LDL 33 this admission with HDL of 15 6. Hypertensive heart disease, continue metoprolol and ARB therapy. -echo shows normal EF with no wall motion abnormalities or significant valve disease. 7. Hypokalemia -Begin replacement 8. Hypomagnesemia -We will give IV magnesium 2 g 9. Diarrhea -Improved with Imodium
--- NOTE | 2023-07-28 08:25 | ECG_ITS ---
APPROVED REPORT Exam: Resting ECG HR:79 bpm ECG Measurements Heart Rate 79 AXES TX 315 P -62 QRSd 148 QRS 46 QT 376 T 17 QTc 411 Conclusion SINUS RHYTHM WITH FIRST DEGREE AV BLOCK RIGHT BUNDLE BRANCH BLOCK [120+ ms QRS DURATION, UPRIGHT V1, 40+ ms S IN I/aVL/V4/V5/V6] ABNORMAL ECG UNCONFIRMED REPORT Electronically signed by : Ervin Osorio MD 07/30/2023 11:05:20
--- NOTE | 2023-07-28 09:01 | HMH.PHAINT1 ---
Pharmacy Intervention Comments: MEDICATION RECONCILIATION COMPLETED ON PATIENT USING EXTERNAL FILL HISTORY FROM PHARMACY AND ROBBI REPORT. -YOU GAR, JULYD
[2023-07-28 10:03] LABS: POC Glucose,Bedside 91 (70-110)
--- NOTE | 2023-07-28 11:07 | PC.NURSE ---
COURTESY NOTE: rounded on pt, pt denied use of any assistance at this time. call light within reach.
--- NOTE | 2023-07-28 15:05 | EXP.PN ---
Subjective *Date: 07/28/23 *Time: 15:05 Interval history: Patient is seen and examined at bedside today. I am accompanied by nursing staff. They report that he remains afebrile with stable vital signs and saturating appropriately on room air. He reports no return of his chest pressure. Today he describes chronic left shoulder pain. He is anticipating left heart cath today. Exam Data for Last 24 hours Vital signs and Labs for Last 24 Hours: Temp Pulse Resp BP Pulse Ox O2 Del Method O2 Flow Rate 97.9 F 77 18 91/55 L 95 Room Air 2 07/28/23 11:43 07/28/23 11:43 07/28/23 11:43 07/28/23 11:43 07/28/23 11:43 07/28/23 14:15 07/27/23 21:34 Laboratory Results - last 24 hr 07/27/23 16:00: WBC 8.0, RBC 4.24 L, Hgb 13.9 L, Hct 39.6 L, MCV 93.5, MCH 32.8 H, MCHC 35.1, RDW 15.1, Plt Count 194, MPV 9.2, Neut % (Auto) 70.5, Lymph % (Auto) 17.8, [place] % (Auto) 7.0, Eos % (Auto) 4.5, Baso % (Auto) 0.3, Neut # (Auto) 5.6, Lymph # (Auto) 1.4, [place] # (Auto) 0.6, Eos # (Auto) 0.4, Baso # (Auto) 0.0, PT 11.3, INR 1.05, Hemoglobin A1c 5.1, Troponin I < 0.01 07/27/23 16:53: POC Glucose 76 07/27/23 18:15: Sodium 138, Potassium 3.4 L, Chloride 108 H, Carbon Dioxide 24, Anion Gap 9.4, BUN 20, Creatinine 1.00, Estimated Creat Clear 139, Estimated GFR 75, Est GFR ( Amer) 91, Glucose 63 L, Calcium 7.2 L, Magnesium 1.4 L, Triglycerides 83, Cholesterol 55 L, LDL Cholesterol Direct 33.47 L, VLDL Cholesterol 17, HDL Cholesterol 15 L, Cholesterol/HDL Ratio 3.7 H, TSH 1.56 07/27/23 20:57: POC Glucose 69 L 07/27/23 21:50: Troponin I < 0.01 07/27/23 22:00: POC Glucose 57 L 07/27/23 22:27: POC Glucose 71 07/28/23 09:54: POC Glucose 91 I & O for Last 24 hours: Intake & Output 07/25/23 07/26/23 07/27/23 07/28/23 23:59 23:59 23:59 23:59 Intake Total 540 / 900 1328 / 1328 Output Total 800 / 800 300 / 300 Balance -260 / 100 1028 / 1028 Weight 98.6 kg 129.444 kg Constitutional Constitutional: no acute distress, morbidly obese and cooperative *Routine Respiratory Exam Respiratory: Present rhonchi, normal respiratory effort and symmetric chest movement; Absent respiratory distress *Routine Cardiovascular Exam Cardiovascular: Present RRR, Normal S1 and Normal S2 *Routine Extremities Exam Extremities: Present full ROM and normal capillary refill; Absent edema *Routine Neurological Exam Neurological: Present alert, oriented X3, moving all extremities, vision grossly intact, hearing grossly intact and normal speech Routine Psychiatric Exam Psychiatric: Present normal affect, normal thought process, cooperative, good insight and good judgment Assessment and Plan *Assessment and plan (1) Unstable angina: Status: Acute Category: Medical Code(s): I20.0 - Unstable angina (2) CAD (coronary artery disease): Status: Acute Category: Medical Code(s): I25.10 - Atherosclerotic heart disease of [place] coronary artery without angina pectoris (3) Abnormal electrocardiogram [ECG] [EKG]: Status: Acute Category: Medical Code(s): R94.31 - Abnormal electrocardiogram [ECG] [EKG] (4) Diabetes: Status: Acute Category: Medical Code(s): E11.9 - Type 2 diabetes mellitus without complications (5) COPD (chronic obstructive pulmonary disease): Status: Chronic Qualifiers: COPD type: unspecified COPD Qualified Code(s): J44.9 - Chronic obstructive pulmonary disease, unspecified Category: Medical Code(s): J44.9 - Chronic obstructive pulmonary disease, unspecified (6) BMI 36.0-36.9,adult: Status: Acute Category: Medical Code(s): Z68.36 - Body mass index [BMI] 36.0-36.9, adult Plan 63-year-old male with identified coronary artery disease on previous cardiac catheterization who started experiencing retrosternal chest pain characterized as pressure 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 In the ED no acu
[2023-07-28 16:07] LABS: POC Glucose,Bedside 80 (70-110)
--- NOTE | 2023-07-28 16:15 | PC.NURSE ---
COURTESY NOTE: rounded on pt. pt has no requests at this time.
--- NOTE | 2023-07-28 18:13 | PC.NURSE ---
COURTESY TECH: rounded on pt after dinner. pt denies any assistance at this time.
--- NOTE | 2023-07-28 18:37 | PC.NURSE ---
tegaderm and 2x2 placed to right wrist.
[2023-07-28 20:07] LABS: POC Glucose,Bedside 89 (70-110)
--- NOTE | 2023-07-28 22:41 | PC.NURSE ---
called film crew member to get order for sleep aid. stated to put order in for melatonin
[2023-07-29] VITALS: BP 97/52; PULSE 80; PULSE 82; RESP 18; TEMP 36.9; O2SAT 94
[2023-07-29 04:00] VITALS: BP 101/62; PULSE 60; PULSE 68; RESP 18; TEMP 36.8; O2SAT 91; BMI 36.1
[2023-07-29 05:34] LABS: POC Glucose,Bedside 103 (70-110)
[2023-07-29 07:33] VITALS: O2SAT 988
[2023-07-29 07:37] VITALS: BP 91/41; PULSE 63; RESP 18; TEMP 36.6; O2SAT 99
[2023-07-29 08:00] VITALS: PULSE 60
--- NOTE | 2023-07-29 09:16 | EXP.DC.SUM ---
General Admission date:: 07/27/23 Discharge date: 07/29/23 HPI HPI HPI: This is a 63-year-old male that presents to leaf conditioner helper office with concerns of chest pain over the past week. His past medical history is significant for coronary artery disease, COPD, diabetes and BPH. He reports his last heart cath was in 2016 identifying no obstructive disease. 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 His ED ECG and troponins were negative so he was discharged home to follow-up with cardiology, which he did today. He reported to the cardiology provider that he continues to have pressure-like chest pain across his chest and radiates to his arms. He rates the pain as greater than 7 on a 1-10 pain scale and it occurs with exertion. He has identified associated shortness of air but no diaphoresis, palpitations, confusion or syncopal episodes. He denies associated nausea, vomiting & diarrhea. His risk factors include diabetes and hypertension. 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 He describes a non-smoking/tobacco use history. His HEART Score =6 and his NATHANIEL Score (UA)=4. 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 In the ED no acute ECG changes and troponins were negative so he was referred for outpatient cardiology evaluation which he attended. In the leaf conditioner helper office he reported ongoing retrosternal chest pain relieved with nitroglycerin. His ECG in the office identified new right bundle branch block and he was admitted with problems addressed as follows: Unstable angina Coronary artery disease Left heart cath 2014 and 2017 Left heart cath (07/28/2023) with nonflow limiting disease and no stent intervention Elevated LVEDP 30 mmHg Telemetry monitoring Cardiology consultation reviewed Troponin trend negative Antiplatelet therapy P2Y12 inhibitor therapy Beta-paula therapy Nitroglycerin therapy as needed Loop diuretic therapy on discharge Aldosterone antagonist therapy on discharge SGLT2 inhibitor therapy Outpatient follow-up with cardiology in 1 week Basic metabolic profile with cardiology follow-up Diabetes Routine blood sugar monitoring Hemoglobin A1c 5.1% Basal insulin therapy as inpatient Sliding scale insulin therapy as inpatient Carbohydrate controlled diet SGLT2 inhibitor therapy BMI 36/OHS/COPD overlap Pulse oximetry monitoring Oxygen therapy to maintain appropriate oxygen saturations Gracie/Quinn inhalation therapy ICS/LABA therapy Outpatient sleep study recommended Post heart cath the patient identified improvement. With his identified improvement he inquired about discharge home. With his elevated LVEDP he was started on loop diuretic therapy, aldosterone antagonist therapy and SGLT2 inhibitor therapy. He will follow-up with his leaf conditioner helper in 1 week with a BMP assessment. I spent 35 minutes in [id number] time with the patient and nursing staff concerning the discharge process. We discussed the admitting diagnoses and hospital course. We discussed identified improvement and the patient's desire to be discharged. We reviewed inpatient studies and imaging. The patient voiced understanding on the importance of follow-up with his primary care provider and leaf conditioner helper. The patient plans to be compliant with the medication regimen prescribed and follow-up appointments. He understands that he can return to the emergency department with any sudden changes or concerns. Exam Data for Last 24 hours Vital signs and Labs for Last 24 Hours: Temp Pulse Resp BP Pulse Ox O2 Del Method O2 Flow Rate 97.8 F 63 18 91/41 L 99
--- NOTE | 2023-07-29 09:30 | EXP.CARD.PN ---
Subjective Subjective Date: 07/29/23 Time: 09:31 Principal diagnosis: Unstable angina Interval history: 63-year-old white female in bed in no acute distress. Chest discomfort has resolved. Cardiac cath yesterday showed stable coronary artery disease, unchanged from 2014 and 2016. Patient still has elevated left ventricular end-diastolic pressure for which diuretic therapy will be started. Exam Data for Last 24 hours Vital signs and Labs for Last 24 Hours: Temp Pulse Resp BP Pulse Ox O2 Del Method O2 Flow Rate 97.8 F 63 18 91/41 L 99 Room Air 2 07/29/23 07:37 07/29/23 07:37 07/29/23 07:37 07/29/23 07:37 07/29/23 07:37 07/29/23 07:37 07/27/23 21:34 Laboratory Results - last 24 hr 07/28/23 09:54: POC Glucose 91 07/28/23 15:59: POC Glucose 80 07/28/23 20:00: POC Glucose 89 07/29/23 05:23: POC Glucose 103 I & O for Last 24 hours: Intake & Output 07/26/23 07/27/23 07/28/23 07/29/23 11:59 11:59 11:59 11:59 Intake Total 1868 / 1868 1240 / 1240 Output Total 1100 / 1100 1150 / 1150 Balance 768 / 768 90 / 90 Weight 285 lb 6 oz 290 lb 4 oz *Routine Respiratory Exam Respiratory: Present CTA bilaterally *Routine Cardiovascular Exam Cardiovascular: Present RRR Progress Note: A&P Assessment and plan (1) Unstable angina: Status: Acute (2) CAD (coronary artery disease): Status: Acute (3) Abnormal electrocardiogram [ECG] [EKG]: Status: Acute (4) Diabetes: Status: Acute (5) COPD (chronic obstructive pulmonary disease): Status: Chronic (6) BMI 36.0-36.9,adult: Status: Acute (7) Hypokalemia: Status: Acute (8) Hypomagnesemia: Status: Acute (9) Hypertensive heart disease: Status: Acute Assessment and Plan Assessment and Plan for All Diagnoses:: 1. Unstable angina/crescendo angina patient with known diabetes and hypertensive heart disease - prior cardiac cath in 2014 and 2016 showing mild coronary artery disease. - [facility] 07/28/2023 unchanged with LVEDP of 30-35 mm Hg - Continue DAPT with aspirin and Plavix 2. Diabetes mellitus, defer to hospitalist -Hemoglobin A1c is 5.1 this admission 3. Obesity 4. Abnormal EKG with new right bundle branch block compared to 12/2021 tracing 5. Hyperlipidemia -continue statin therapy -LDL 33 this admission with HDL of 15 6. Hypertensive heart disease, continue metoprolol and ARB therapy. -echo shows normal EF with no wall motion abnormalities or significant valve disease. -Start lasix and spironolactone 7. Hypokalemia -Replaced 8. Hypomagnesemia -Replaced 9. Diarrhea -Improved with Imodium STable from CV standpoint for discharge. Home medications Aspirin 81 mg daily Lasix 40 mg daily Spironolactone 25 mg daily Stop Plavix Stop lisinopril Continue metoprolol succinate 25 mg daily Continue atorvastatin 40 mg daily Start Jardiance 10 mg Follow-up in our office in 1 week with BMP/BNP.
[2023-08-02 10:18] LABS: Norovirus Detected (NotDetected)
--- NOTE | 2023-08-02 13:59 | CARE MANAGER ---
Spoke with patient's related to hospital discharge. She states he is doing well. He is aware of follow up appointment and medication changes. Denies any questions or concerns at this time. SHAHEED Cardoso
== END 2023-07-29 11:40 | disposition home or self-care (01) ==
PROVIDERS: Internal Medicine; Nurse Practitioner Family; Admitting Provider Family Medicine; PCP Nurse Practitioner Family; Visit Provider Family Medicine
DX: I25.110 Atherosclerotic heart disease of native coronary artery with unstable angina pectoris (principal); E87.6 Hypokalemia; E83.42 Hypomagnesemia; I11.9 Hypertensive heart disease without heart failure; Z79.4 Long term (current) use of insulin; E11.9 Type 2 diabetes mellitus without complications; Z79.899 Other long term (current) drug therapy
CPT/HCPCS: 36415; 80048; 80061; 82962; 83036; 83735; 84443; 84484; 85025; 85610; 87507; 93005; 93306; 93458; 94640; 99152; C1725; C1769; G0378; J1644; J3475; Q9967

== ENCOUNTER 2023-09-12 10:54 | Emergency (ER) | payer MEDICARE, MEDICAID, SELFPAY ==
[2023-09-12 11:30] VITALS: BP 123/76; PULSE 71; RESP 18; TEMP 36.9; O2SAT 97; BMI 33.7
--- NOTE | 2023-09-12 11:50 | EXP.UTC ---
Discharge Plan Disposition Patient Disposition: Home, Self-Care Condition: Good Prescriptions Prescriptions: New prednisone 10 mg tablet 10 mg PO DIRECTED 9 Days Qty: 21 0RF Rx Instructions: Take 4 tablets daily for 3 days, then take 2 tablets daily for 3 days, then take 1 tablet daily for 3 days, then stop. benzonatate [benzonatate] 100 mg capsule 100 mg PO TIDP PRN (Reason: Cough) Qty: 30 0RF amoxicillin-pot clavulanate 875-125 mg Tablet 1 tab PO Q12H Qty: 20 0RF No Action atorvastatin 40 mg tablet 40 mg PO HS fluticasone furoate-vilanterol [Breo Ellipta] 200-25 mcg/dose blister with device 1 inh inhalation DAILY mecobalamin (vitamin B12) 500 mcg tablet,chewable 500 mcg PO DAILY tamsulosin 0.4 MG capsule 0.4 mg PO DAILY glipizide 5 mg tablet extended release 24hr 5 mg PO DAILY Patient Comments: TAKE 1 TABLET BY MOUTH ONCE DAILY WITH FOOD lisinopril 10 mg tablet 10 mg PO DAILY Patient Comments: TAKE 1 TABLET BY MOUTH ONCE DAILY metoprolol tartrate 25 MG tablet 25 mg PO DAILY Mounjaro 10 mg/0.5 mL Pen Injector 10 mg SQ FR gabapentin 800 mg tablet 800 mg PO QID Patient Comments: Take 1 tablet 4 times a day. furosemide 40 mg Tablet 40 mg PO DAILY Qty: 30 0RF aspirin 81 mg Tablet,Delayed Release (Dr/Ec) 81 mg PO DAILY Qty: 30 0RF Jardiance 10 mg tablet 10 mg PO DAILY Qty: 30 0RF Referrals Follow up/Referrals: Anaya Dugan PA [Primary Care Provider] - See instructions Activity Restrictions/Add. Instructions Additional Instructions/Restrictions: Drink plenty of fluids. Take tylenol or ibuprofen for pain or fever. Take the medications as directed. Follow up with your regular doctor. GO TO THE ER FOR ANY WORSENING SYMPTOMS Don't start the oral steroids until tomorrow, since you had the shot here today. Clinical Impressions Clinical Impression: COPD exacerbation Instructions Patient Instructions: DI for Pneumonia -- Adult, Ceftriaxone Injection, Dexamethasone Injection Discharge ED Provider: Serge Alvarez [facility] General Stated complaint: achy, vomiting, runny nose, headache Time Seen by Provider: 09/12/23 11:50 History of Present Illness Provider Complaint: He states that for the past 3 days he has had worsening chest and sinus congestion. Related Data Home Medications Medication Instructions Recorded Confirmed tamsulosin 0.4 mg capsule 0.4 mg PO DAILY Prostate 08/17/21 09/12/23 metoprolol tartrate 25 mg tablet 25 mg PO DAILY High Blood Pressure 01/04/22 09/12/23 atorvastatin 40 mg tablet 40 mg PO HS Cholesterol 07/27/23 09/12/23 fluticasone furoate 200 1 inh inhalation DAILY Breathing 07/27/23 09/12/23 mcg-vilanterol 25 mcg/dose Problems inhalation powder (Breo Ellipta) mecobalamin (vitamin B12) 500 mcg 500 mcg PO DAILY Supplement 07/27/23 09/12/23 chewable tablet tirzepatide 10 mg/0.5 mL 10 mg SQ FR Weight Loss 07/27/23 09/12/23 subcutaneous pen injector (Aubrie) gabapentin 800 mg tablet 800 mg PO QID Pain 07/28/23 09/12/23 glipizide 5 mg tablet, extended 5 mg PO DAILY 09/12/23 09/12/23 release 24 hr lisinopril 10 mg tablet 10 mg PO DAILY 09/12/23 09/12/23 Previous Rx's Medication Instructions Recorded aspirin 81 mg tablet,delayed 81 mg PO DAILY #30 tabs 07/29/23 release empagliflozin 10 mg tablet 10 mg PO DAILY #30 tabs 07/29/23 (Jardiance) furosemide 40 mg tablet 40 mg PO DAILY #30 tabs 07/29/23 amoxicillin 875 mg-potassium 1 tab PO Q12H #20 tabs 09/12/23 clavulanate 125 mg tablet benzonatate 100 mg capsule 100 mg PO TIDP PRN Cough #30 caps 09/12/23 prednisone 10 mg tablet 10 mg PO DIRECTED 9 days #21 09/12/23 tabs Allergies Allergy/AdvReac Type Severity Reaction Status Date / Time No Known Allergies Allergy Verified 09/12/23 12:13 [facility] Disclaimer: The information contained in this section may
--- NOTE | 2023-09-12 11:56 | XR_ITS ---
FINAL REPORT CLINICAL HISTORY: cough body aches, cough, chest congestion, vomiting, and body aches COMPARISON: 01/03/2022 FINDINGS: There is no evidence of effusion or other pleural disease. The mediastinum has a normal appearance. The cardiac silhouette is unremarkable. IMPRESSION: Unremarkable chest exam. Reviewed, Interpreted and Dictated by Duy Luis MD Transcribed by Mell Marshall Authenticated and [facility]
[2023-09-12 12:16] LABS: UTC Influenza A Antigen Negative (Negative); UTC Influenza B Antigen Negative (Negative)
[2023-09-12 13:21] VITALS: BP 123/76; PULSE 71; RESP 18; TEMP 36.9; O2SAT 97
== END 2023-09-12 13:20 | disposition home or self-care (01) ==
PROVIDERS: Emergency Provider Nurse Practitioner Family; PCP Nurse Practitioner Family
DX: U07.1 COVID-19 (principal); J44.1 Chronic obstructive pulmonary disease with (acute) exacerbation; R51.9 Headache, unspecified; R11.10 Vomiting, unspecified; R09.89 Other specified symptoms and signs involving the circulatory and respiratory systems; R09.81 Nasal congestion; I25.10 Atherosclerotic heart disease of native coronary artery without angina pectoris; I11.9 Hypertensive heart disease without heart failure; E11.9 Type 2 diabetes mellitus without complications; Z79.84 Long term (current) use of oral hypoglycemic drugs
CPT/HCPCS: 71046; 87635; 87804; 96372; 99204; 99212; G0463; J0696

== ENCOUNTER → 2023-09-27 12:50 | Outpatient (CLI) | payer MEDICARE, MEDICAID, SELFPAY ==
--- NOTE | 2023-09-27 12:57 | XR_ITS ---
FINAL REPORT TECHNIQUE: Chest PA & Lateral CLINICAL HISTORY: COPD COMPARISON: September 12, 2023 FINDINGS: 2 views of the chest were performed. The heart size is normal. The mediastinum is within normal limits. There is no acute cardiopulmonary process. There are no pleural effusions. There is no pneumothorax. The bony thorax appears intact. IMPRESSION: No acute cardiopulmonary process. Reviewed, Interpreted and Dictated by Drew Arroyo MD Transcribed by Silverio Rm Authenticated and [facility]
== END ==
PROVIDERS: PCP Nurse Practitioner Family; Visit Provider Nurse Practitioner Family
DX: J44.1 Chronic obstructive pulmonary disease with (acute) exacerbation (principal)
CPT/HCPCS: 71046

== ENCOUNTER 2024-03-11 11:37 | Emergency (ER) | payer MEDICARE, MEDICAID, SELFPAY ==
[2024-03-11] VITALS (12 sets, daily range): BP systolic 107–140; BP diastolic 50–87; PULSE 51–110; RESP 18; TEMP 36.6–37.1; O2SAT 95–100; BMI 33.0
--- NOTE | 2024-03-11 11:46 | ED_ITS ---
Discharge Plan Disposition Patient Disposition: Xfer Short-Term Hosp Prescriptions Prescriptions: No Action atorvastatin 40 mg tablet 40 mg PO HS fluticasone furoate-vilanterol [Breo Ellipta] 200-25 mcg/dose blister with device 1 inh inhalation DAILY mecobalamin (vitamin B12) 500 mcg tablet,chewable 500 mcg PO DAILY tamsulosin 0.4 MG capsule 0.4 mg PO DAILY glipizide 5 mg tablet extended release 24hr 5 mg PO DAILY Patient Comments: TAKE 1 TABLET BY MOUTH ONCE DAILY WITH FOOD lisinopril 10 mg tablet 10 mg PO DAILY Patient Comments: TAKE 1 TABLET BY MOUTH ONCE DAILY prednisone 10 mg tablet 10 mg PO DIRECTED 9 Days Qty: 21 0RF Rx Instructions: Take 4 tablets daily for 3 days, then take 2 tablets daily for 3 days, then take 1 tablet daily for 3 days, then stop. benzonatate [benzonatate] 100 mg capsule 100 mg PO TIDP PRN (Reason: Cough) Qty: 30 0RF amoxicillin-pot clavulanate 875-125 mg Tablet 1 tab PO Q12H Qty: 20 0RF metoprolol tartrate 25 MG tablet 25 mg PO DAILY Mounjaro 10 mg/0.5 mL Pen Injector 10 mg SQ FR gabapentin 800 mg tablet 800 mg PO QID Patient Comments: Take 1 tablet 4 times a day. furosemide 40 mg Tablet 40 mg PO DAILY Qty: 30 0RF aspirin 81 mg Tablet,Delayed Release (Dr/Ec) 81 mg PO DAILY Qty: 30 0RF Jardiance 10 mg tablet 10 mg PO DAILY Qty: 30 0RF Referrals Follow up/Referrals: Anaya Dugan PA [Primary Care Provider] - See instructions Stand Alone Forms Stand Alone Forms: Transfer Record - ED Discharge ED Provider: Adam Watkins General Adult HPI General Chief complaint: Ear Stated complaint: back of head pain into ears Time Seen by Provider: 03/11/24 11:44 History of Present Illness HPI narrative: The patient presents with severe pain originating from the ear, extending down the neck, the back of the shoulder, and up into the head. The pain began approximately one week ago, starting on a Tuesday afternoon. Initially, he attempted home remedies such as sweet oil and [id number] ear drops, but the symptoms worsened. By Tuesday, the pain had intensified and spread, including stiffness in the neck and discomfort extending into the shoulder and head. The patient visited an urgent care last Tuesday, where he was diagnosed with an inner ear infection and prescribed amoxicillin 500 mg three times a day. Despite the antibiotic treatment, the pain has progressively worsened, leading to difficulty in holding the head up and finding relief only when laying the head to the side. There is no reported drainage from the ear. The patient denies any vision issues but describes the pain as radiating from the ear down to the neck and shoulder. The patient has a medical history of hypertension and previously managed diabetes, with significant weight loss leading to current A1C levels around 5.1- 5.2. He is currently on medication for blood pressure management. He additionally states he takes aspirin 81 mg daily. Please note that above description of symptoms, in this electronic medical record under categorization of recalled from ER triage doctor by RN are reflective of an initial nursing assessment, however, is not reflective of my full history and physical exam that was personally taken and clarified. Consequentially, this preceding description of symptoms, which may include the patient's categorized chief complaint in the EMR, do not reflect my personal clinical impression, and the ultimate description of history of present illness and patient stated complaints should be deferred to this section of the note. Unless stated otherwise or congruent with this section of the note, additional signs, symptoms, or incongruence should be interpreted as inaccurate with my clinical impression. Related Data Home Medications Medication Instructions Recorded Confirmed tamsulosin 0.4 mg capsule 0.4 mg PO DAILY Prostate 08/17/21 09/12/23 metoprolol tartrate 25 mg tablet 25 mg PO DAILY High Blood Pressure 01/04/22 09/12/23 atorvastatin 40 mg tablet 40 mg PO HS Cholesterol 07/27/23 09/12/23 fluticasone furoate 200 1 inh inhalation DAILY Breathing 07/27/23 09/12/23 mcg-vilanterol 25 mcg/dose Problems inhalation powder (Breo Ellipta) mecobalamin (vitamin B12) 500 mcg 500 mcg PO DAILY Supplement 07/27/23 09/12/23 chewable tablet tirzepatide 10 mg/0.5 mL 10 mg SQ FR Weight Loss 07/27/23 09/12/23 subcutaneous pen injector (Aubrie) gabapentin 800 mg tablet 800 mg PO QID Pain 07/28/23 09/12/23 glipizide 5 mg tablet, extended 5 mg PO DAILY 09/12/23 09/12/23 release 24 hr lisinopril 10 mg tablet 10 mg PO DAILY 09/12/23 09/12/23 Previous Rx's Medication Instructions Recorded aspirin 81 mg tablet,delayed 81 mg PO DAILY #30 tabs 07/29/23 release empagliflozin 10 mg tablet 10 mg PO DAILY #30 tabs 07/29/23 (Jardiance) furosemide 40 mg tablet 40 mg PO DAILY #30 tabs 07/29/23 amoxicillin 875 mg-potassium 1 tab PO Q12H #20 tabs 09/12/23 clavulanate 125 mg tablet benzonatate 100 mg capsule 100 mg PO TIDP PRN Cough #30 caps 09/12/23 prednisone 10 mg tablet 10 mg PO DIRECTED 9 days #21 09/12/23 tabs Allergies Allergy/AdvReac Type Severity Reaction Status Date / Time No Known Allergies Allergy Verified 09/12/23 12:13 [facility] Disclaimer: The information contained in this section may have been updated after the patient was seen, as this information can be updated by other users. 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 Some mild pain overlying mastoid process however no auricular displacement, no mastoid erythema, bilateral tympanic membranes bulging however nonerythematous. Postural component of patient's neck pain, exacerbated with head movement towards right. Chest Chest inspection: Present normal inspection and symmetric chest wall rise Respiratory Respiratory exam: Present normal lung sounds bilaterally; Absent respiratory distress Cardiovascular Cardiovascular exam: Present regular rate and normal rhythm Abdominal Exam Abdominal exam: Present soft Neurological Exam Neurological exam: Present alert and oriented X3 Psychiatric Psychiatric exam: Present normal affect and normal mood Skin Skin exam: Present warm and dry Medical Decision Making Medical Records Medical records reviewed: Yes I reviewed the patient's medical records. Ahsan Inquiry Pt receiving controlled substance: No Vital Signs: 03/11/24 11:38 03/11/24 11:39 03/11/24 13:00 Temperature 97.9 F Temperature Source Oral Pulse Rate 100 H 93 H Pulse Rate [Left] 91 H Respiratory Rate 18 Blood Pressure 140/74 Blood Pressure [Left Arm] 136/76 Blood Pressure Mean [Left Arm] 96 02 Sat by Pulse Oximetry 96 100 99 Oxygen Delivery Method Room Air 03/11/24 14:30 03/11/24 14:49 03/11/24 15:00 Temperature Temperature Source Pulse Rate 110 H 85 90 Pulse Rate [Left] Respiratory Rate Blood Pressure 128/65 118/58 L 125/58 L Blood Pressure [Left Arm] Blood Pressure Mean [Left Arm] 02 Sat by Pulse Oximetry 98 99 99 Oxygen Delivery Method 03/11/24 15:30 03/11/24 16:00 03/11/24 16:31 Temperature Temperature Source Pulse Rate 79 58 L 52 L Pulse Rate [Left] Respiratory Rate Blood Pressure 127/87 107/57 L 113/65 Blood Pressure [Left Arm] Blood Pressure Mean [Left Arm] 02 Sat by Pulse Oximetry 99 95 96 Oxygen Delivery Method Room Air Room Air Lab Data Lab Results 03/11/24 12:00: WBC 5.0, RBC 4.53 L, Hgb 14.7, Hct 44.7, MCV 98.6 H, MCH 32.4 H, MCHC 32.9, RDW 15.4, Plt Count 208, MPV 8.6, Neut % (Auto) 47.5, Lymph % (Auto) 35.5, [place] % (Auto) 5.9, Eos % (Auto) 9.8, Baso % (Auto) 1.3, Neut # (Auto) 2.4, Lymph # (Auto) 1.8, [place] # (Auto) 0.3, Eos # (Auto) 0.5 H, Baso # (Auto) 0.1, E SR 36 H, PT 11.0, INR 1.02, Sodium 142, Potassium 3.9, Chloride 108 H, Carbon Dioxide 28, Anion Gap 9.9, BUN 16, Creatinine 1.10, Estimated Creat Clear 110, Estimated GFR 68, Est GFR ( Amer) 82, Glucose 106 H, Calcium 9.2, Total Bilirubin 0.6, AST 27, ALT 19, Alkaline Phosphatase 106, C-Reactive Protein 3.7, Total Protein 7.0, Albumin 3.7, Globulin 3.3 H, Albumin/Globulin Ratio 1.1 03/11/24 12:00 03/11/24 12:00 Orders (Tests/Meds): ED MEDICATIONS Discontinued Medications Generic Name Dose Route Start Last Admin Trade Name Fabian PRN Reason Stop Dose Admin Hydromorphone HCl 0.5 mg 03/11/24 15:24 03/11/24 15:30 Hydromorphone 2mg/Ml Syringe IV 03/11/24 15:25 0.5 mg ONCE ONE Administration Vancomycin HCl 2,000 mg/ 250 mls @ 125 mls/hr 03/11/24 15:02 Sodium Chloride IV 03/11/24 15:03 ONCE ONE Metronidazole 500 mg in 100 mls @ 100 mls/hr 03/11/24 15:02 03/11/24 16:19 Flagyl 500mg/100ml Ivpb IV 03/11/24 16:01 100 mls/hr ONCE ONE Administration Ceftriaxone Sodium 1 gm/ 50 mls @ 100 mls/hr 03/11/24 15:04 03/11/24 15:29 Sodium Chloride IV 03/11/24 15:33 100 mls/hr ONCE ONE Administration Iopamidol 100 ml 03/11/24 13:27 03/11/24 13:28 Iopamidol-370 (76%);100ml Bottle IV 03/11/24 13:28 100 ml ONCE ONE Administration Methocarbamol 500 mg 03/11/24 12:45 03/11/24 13:32 Methocarbamol 500mg Tablet PO 03/11/24 12:46 500 mg ONCE STA Administration Oxycodone HCl 5 mg 03/11/24 12:45 03/11/24 13:32 Oxycodone 5mg Immediate Release Tablet PO 03/11/24 12:46 5 mg ONCE ONE Administration Sodium Chloride 10 ml 03/11/24 13:27 03/11/24 13:28 Sodium Chloride 0.9% 10ml Syr (Rad Only) IV 03/11/24 13:28 10 ml ONCE ONE Administration Sodium Chloride 50 ml 03/11/24 13:27 03/11/24 13:28 0.9 % Sodium Chloride 50 Ml Vial IV 03/11/24 13:28 50 ml ONCE ONE Administration ORDERS Category Date Time Status CT angio head Stat Cat Scan 03/11/24 12:[address] angio neck Stat Cat Scan 03/11/24 12:[address] cervical spine wo con Stat Cat Scan 03/11/24 12:[address] head/brain wo con Stat Cat Scan 03/11/24 13:08 Completed CBC w/Auto Diff [Complete Blood Count Auto Diff] Stat Lab 03/11/24 12:00 Completed CMP [Comprehensive Metabolic Panel] Stat Lab 03/11/24 12:00 Completed CRP [C-Reactive Protein] Stat Lab 03/11/24 12:00 Completed ESR [Erythrocyte Sedimentation Rate] Stat Lab 03/11/24 12:00 Completed PT INR [Prothrombin Time INR] Stat Lab 03/11/24 12:00 Completed Blood Culture Stat Micro 03/11/24 15:21 Received Medical Decision Narrative: Patient with history and exam per above presenting for evaluation of neck pain, reported history of earache. Diagnoses considered include radiculopathy, vertebral artery dissection, fracture, spinal epidural abscess, minimal clinical evidence to suggest mastoiditis. At this time I have a very low index of suspicion for pain referred from a simple otitis media. Unclear what patient's tympanic membrane's look like at time of initial presentation however patient's tympanic membranes, albeit bulging, are without asymmetry, patient had abrupt onset of his symptoms, no preceding reported upper respiratory symptoms, and, upon further clarification, reports that the component of neck pain, including cervical spinal pain, was present during initial onset of symptoms, and not a later developing symptom, although he does frequently refer to the entirety of his constellation of symptoms, including neck, back pain, to be an earache . It seems to be, upon continued questioning, that the pain may have started more localized in his anterior neck, and the progression of symptoms has been to his shoulder and cervical spine, which may have led to him equating the symptoms to earache. ED workup and treatment included: ED MEDICATIONS Discontinued Medications Generic Name Dose Route Start Last Admin Trade Name Fabian PRN Reason Stop Dose Admin Hydromorphone HCl 0.5 mg 03/11/24 15:24 03/11/24 15:30 Hydromorphone 2mg/Ml Syringe IV 03/11/24 15:25 0.5 mg ONCE ONE Administration Vancomycin HCl 2,000 mg/ 250 mls @ 125 mls/hr 03/11/24 15:02 Sodium Chloride IV 03/11/24 15:03 ONCE ONE Metronidazole 500 mg in 100 mls @ 100 mls/hr 03/11/24 15:02 03/11/24 16:19 Flagyl 500mg/100ml Ivpb IV 03/11/24 16:01 100 mls/hr ONCE ONE Administration Ceftriaxone Sodium 1 gm/ 50 mls @ 100 mls/hr 03/11/24 15:04 03/11/24 15:29 Sodium Chloride IV 03/11/24 15:33 100 mls/hr ONCE ONE Administration Iopamidol 100 ml 03/11/24 13:27 03/11/24 13:28 Iopamidol-370 (76%);100ml Bottle IV 03/11/24 13:28 100 ml ONCE ONE Administration Methocarbamol 500 mg 03/11/24 12:45 03/11/24 13:32 Methocarbamol 500mg Tablet PO 03/11/24 12:46 500 mg ONCE STA Administration Oxycodone HCl 5 mg 03/11/24 12:45 03/11/24 13:32 Oxycodone 5mg Immediate Release Tablet PO 03/11/24 12:46 5 mg ONCE ONE Administration Sodium Chloride 10 ml 03/11/24 13:27 03/11/24 13:28 Sodium Chloride 0.9% 10ml Syr (Rad Only) IV 03/11/24 13:28 10 ml ONCE ONE Administration Sodium Chloride 50 ml 03/11/24 13:27 03/11/24 13:28 0.9 % Sodium Chloride 50 Ml Vial IV 03/11/24 13:28 50 ml ONCE ONE Administration ORDERS Category Date Time Status CT angio head Stat Cat Scan 03/11/24 12:[address] angio neck Stat Cat Scan 03/11/24 12:[address] cervical spine wo con Stat Cat Scan 03/11/24 12:[address] head/brain wo con Stat Cat Scan 03/11/24 13:08 Completed CBC w/Auto Diff [Complete Blood Count Auto Diff] Stat Lab 03/11/24 12:00 Completed CMP [Comprehensive Metabolic Panel] Stat Lab 03/11/24 12:00 Completed CRP [C-Reactive Protein] Stat Lab 03/11/24 12:00 Completed ESR [Erythrocyte Sedimentation Rate] Stat Lab 03/11/24 12:00 Completed PT INR [Prothrombin Time INR] Stat Lab 03/11/24 12:00 Completed Blood Culture Stat Micro 03/11/24 15:21 Received Labs were independently interpreted by me, significant for no leukocytosis, however patient has completed a course of antibiotics recently, ESR 36, PT 11.0, INR 1.02, Imaging was independently visualized and interpreted by me, significant for findings concerning for vertebral artery dissection on side of symptoms, right side, additionally, features concerning for cervical facet septic arthritis per radiology report. Please refer to radiology report for final details. Given these findings, patient will be transferred to [facility] for further evaluation and management. He was started on antibiotics for suspected cervical spinal infectious process. As neurosurgery benefits sales consultant was not on transfer call, and patient has remained stable in his symptoms and also takes aspirin 81 mg daily, I believe it is reasonable to hold any further anticoagulation until evaluation by benefits sales consultant. Critical Care Critical Care Time Critical Care Time: No
--- NOTE | 2024-03-11 12:45 | CT_ITS ---
PROCEDURE INFORMATION: Exam: CT Cervical Spine Without Contrast Exam date and time: 03/11/2024 1:14 PM Age: 63 years old Clinical indication: Neck pain and radicular pain (radiculopathy); Cervical region; Additional info: Neck pain, midline, radicular symptoms TECHNIQUE: Imaging protocol: Computed tomography of the cervical spine without contrast. Radiation optimization: All CT scans at this facility use at least one of these dose optimization techniques: automated exposure control; mA and/or kV adjustment per patient size (includes targeted exams where dose is matched to clinical indication); or iterative reconstruction. COMPARISON: None FINDINGS: Bones: Cervical spondylosis with multilevel disc degeneration. Multilevel advanced hypertrophic facet changes the is greatest on the right at C2-C3 and C3-C4. Accompanying foci of subcortical cystic degenerative change. Mastoid air cells: Right mastoid air cell inflammatory changes. Lungs: Lung apices are normal. Soft tissues: Unremarkable. IMPRESSION: 1. Cervical spondylosis with advanced hypertrophic facet changes. Clinically correlate to exclude inflammatory arthritis. 2. No evidence of acute osseous injury.
--- NOTE | 2024-03-11 12:46 | CT_ITS ---
PROCEDURE INFORMATION: Exam: CTA Neck With Contrast Exam date and time: 03/11/2024 1:19 PM Age: 63 years old Clinical indication: Pain; Headache; Additional info: TAYLOR, neck pain on right TECHNIQUE: Imaging protocol: Computed tomographic angiography of the neck with contrast. Exam focused on the cervical segments of the vasculature. 3D rendering (Not supervised by radiologist): MIP and/or 3D reconstructed images were created by the technologist. Radiation optimization: All CT scans at this facility use at least one of these dose optimization techniques: automated exposure control; mA and/or kV adjustment per patient size (includes targeted exams where dose is matched to clinical indication); or iterative reconstruction. Contrast material: ISOVUE 370; Contrast volume: 100 ml; Contrast route: INTRAVENOUS (IV); COMPARISON: CT CERVICAL SPINE WO CON 03/11/2024 1:14 PM FINDINGS: Right common carotid artery: Small amount of atherosclerotic plaque at the right carotid bulb and proximal internal carotid artery without significant stenosis. No dissection or aneurysm. Right internal carotid artery: No stenosis of the extracranial segment. No dissection or occlusion. Right external carotid artery: No occlusion or stenosis of the origin. Left common carotid artery: Small amount of atherosclerotic plaque at the left carotid bulb and proximal internal carotid artery without significant stenosis. No dissection or aneurysm. Left internal carotid artery: No stenosis of the extra-cranial segment. No dissection or occlusion. Left external carotid artery: No occlusion or stenosis of the origin. Right vertebral artery: No stenosis. No dissection or occlusion. Left vertebral artery: Dominant left vertebral artery, normal variant. No evidence of dissection, occlusion or significant stenosis. Soft tissues: Unremarkable. Bones/joints: Asymmetric widening of the right C3-C4 facet joint space with cortical irregularity along the articular surfaces. IMPRESSION: 1. No evidence of critical stenosis, occlusion, dissection or aneurysm in the extracranial cerebral arteries. 2. Asymmetric widening of the right C3-C4 facet joint space with cortical irregularity along the articular surfaces. Findings are concerning for joint effusion and potentially septic arthritis. MRI could provide more definitive evaluation. 3. Concurrent head CTA reported separately. REFERENCES: NASCET CRITERIA. The degree of stenosis in the cervical segment of the internal carotid artery is based on NASCET criteria. Normal is no stenosis. Mild is less than 50% stenosis. Moderate is 50-69% stenosis. Severe is 70% to 99% stenosis. Total occlusion is no detectable patent lumen.
--- NOTE | 2024-03-11 12:46 | CT_ITS ---
PROCEDURE INFORMATION: Exam: CTA Head With Contrast, Arteriography Exam date and time: 03/11/2024 1:19 PM Age: 63 years old Clinical indication: Pain; Headache; Additional info: TAYLOR, neck pain on right TECHNIQUE: Imaging protocol: Computed tomographic angiography of the head with contrast. Exam focused on the arteries. 3D rendering (Not supervised by radiologist): MIP and/or 3D reconstructed images were created by the technologist. Radiation optimization: All CT scans at this facility use at least one of these dose optimization techniques: automated exposure control; mA and/or kV adjustment per patient size (includes targeted exams where dose is matched to clinical indication); or iterative reconstruction. Contrast material: ISOVUE 370; Contrast volume: 100 ml; Contrast route: INTRAVENOUS (IV); COMPARISON: CT HEAD/BRAIN WO CON 03/11/2024 1:14 PM FINDINGS: ANTERIOR CIRCULATION: Right internal carotid artery: Intracranial segment is patent with no significant stenosis. No aneurysm. Right middle cerebral artery: No occlusion or significant stenosis. No aneurysm. Right anterior cerebral artery: No occlusion or significant stenosis. No aneurysm. Left internal carotid artery: Intracranial segment is patent with no significant stenosis. No aneurysm. Left middle cerebral artery: No occlusion or significant stenosis. No aneurysm. Left anterior cerebral artery: No occlusion or significant stenosis. No aneurysm. POSTERIOR CIRCULATION: Right vertebral artery: Extremely narrow V4 segment of the right vertebral artery from the level of the posterior inferior cerebellar artery to the basilar confluence, noting variant anatomy of the right PICA with extracranial origin off the right vertebral artery V3 segment. Left vertebral artery: No occlusion or significant stenosis. No aneurysm. Basilar artery: No occlusion or significant stenosis. No aneurysm. Right posterior cerebral artery: No occlusion or significant stenosis. No aneurysm. Left posterior cerebral artery: origin of the left posterior cerebral artery, normal variant anatomy. No occlusion or significant stenosis. No aneurysm. Brain: No abnormally enhancing brain lesion, mass effect, or midline shift. Cerebral ventricles: No hydrocephalus. Bones/joints: No acute calvarial or skull base fracture. Soft tissues: Unremarkable. IMPRESSION: 1. Extremely narrow V4 segment of the right vertebral artery from the level of the posterior inferior cerebellar artery to the basilar confluence, noting variant anatomy of the right PICA with extracranial origin off the right vertebral artery V3 segment. Findings of a narrow V4 segment in a non-dominant extracranial vertebral artery most commonly represents congenital variant anatomy, although vertebral artery dissection can have a similar appearance and is not excluded. Recommend correlation with patient history and/or prior imaging if available. 2. Concurrent neck CTA reported separately.
[2024-03-11 12:56] LABS: Basophils # 0.1 K/mm3 (0-0.2); Basophils % 1.3 % (0.1-2.0); Chloride 108 mmol/L (98-107); Eosinophils # 0.5 K/mm3 (0.0-0.4); Eosinophils % 9.8 % (0.1-12.0); Hematocrit 44.7 % (42.0-52.0); Hemoglobin 14.7 g/dL (14.1-18.0); Lymphocytes # 1.8 K/mm3 (0.7-4.5); Lymphocytes % 35.5 % (10-50); Mean Corpuscular HGB Conc 32.9 g/dL (31.8-35.4); Mean Corpuscular Hemoglobin 32.4 pg (27.0-31.2); Mean Corpuscular Volume 98.6 fl (80-94); Mean Platelet Volume 8.6 fl (7.4-10.4); Monocytes # 0.3 K/mm3 (0.1-1.0); Monocytes % 5.9 % (1.7-9.3); Neutrophils # 2.4 K/mm3 (1.8-7.8); Neutrophils % 47.5 % (37.0-80.0); Platelet Count 208 K/mm3 (142-424); Potassium 3.9 mmoL/L (3.5-5.1); Red Blood Count 4.53 M/mm3 (4.60-6.20); Red Cell Distribution Width 15.4 % (11.5-17.5); Sodium 142 mmol/L (136-145)
[2024-03-11 12:58] LABS: Blood Urea Nitrogen 16 mg/dl (9-20); Creatinine Clearance Estimated 110 mL/min (50-200); Estimated Glomerular Filt Rate 68 ml/min (>60); GFR (African American) 82 ML/MIN (>60)
[2024-03-11 12:59] LABS: Alanine Aminotransferase 19 U/L (12-78); Albumin Level 3.7 g/dl (3.5-5.0); Albumin/Globulin Ratio 1.1 (1.1-1.8); Alkaline Phosphatase 106 U/L (38-126); Anion Gap 9.9 mEq/L (5-15); Aspartate Amino Transferase 27 U/L (17-59); Bilirubin,Total 0.6 mg/dl (0.2-1.3); Calcium 9.2 mg/dl (8.4-10.2); Carbon Dioxide 28 mmol/L (22.0-30.0); Globulin 3.3 g/dL (1.3-3.2); Glucose 106 mg/dl (74-100)
[2024-03-11 13:05] LABS: C-Reactive Protein 3.7 mg/L (0-4)
--- NOTE | 2024-03-11 13:08 | CT_ITS ---
PROCEDURE INFORMATION: Exam: CT Head Without Contrast Exam date and time: 03/11/2024 1:14 PM Age: 63 years old Clinical indication: Pain; Headache; Additional info: TAYLOR TECHNIQUE: Imaging protocol: Computed tomography of the head without contrast. Radiation optimization: All CT scans at this facility use at least one of these dose optimization techniques: automated exposure control; mA and/or kV adjustment per patient size (includes targeted exams where dose is matched to clinical indication); or iterative reconstruction. COMPARISON: CT CERVICAL SPINE WO CON 03/11/2024 1:14 PM FINDINGS: Brain: No intracranial hemorrhage. No evidence of acute territorial infarct or cerebral edema. Mild prominence of the cortical sulci consistent with age-appropriate intracerebral volume loss. Periventricular white matter tract changes consistent with microvascular disease. No mass effect or midline shift. Calcified pineal gland. Focal region of chronic lacunar infarction right temporal lobe. Cerebral ventricles: No ventriculomegaly. Paranasal sinuses: Visualized sinuses are unremarkable. No fluid levels. Mastoid air cells: Visualized mastoid air cells are well aerated. Bones: Unremarkable. No acute fracture. Soft tissues: Unremarkable. IMPRESSION: No evidence of acute intracranial abnormality.
[2024-03-11 13:23] LABS: INR 1.02 (0.9-1.1)
[2024-03-11] MEDS: IOPAMIDOL-370 (76%);100ML BOTTLE 100 ML IV (13:28)
[2024-03-11] MEDS: SODIUM CHLORIDE 0.9% 10ML SYR (RAD ONLY) 10 ML IV (13:28)
[2024-03-11] MEDS: 0.9 % SODIUM CHLORIDE 50 ML VIAL IV (13:28)
[2024-03-11] MEDS: OXYCODONE 5MG IMMEDIATE RELEASE TABLET 5 MG PO (13:32)
[2024-03-11] MEDS: METHOCARBAMOL 500MG TABLET 500 MG PO (13:32)
[2024-03-11 14:23] LABS: Erythrocyte Sedimentation Rate 36 mm/hr (0-20)
--- NOTE | 2024-03-11 14:44 | PC.NURSE ---
O/p with transfer center at this time.
--- NOTE | 2024-03-11 14:45 | PC.NURSE ---
called rad for image disc and to power share images to [facility]
[2024-03-11] MEDS: CEFTRIAXONE 1 GM 1 GM in 0.9 % SODIUM CHLORIDE 50 ML IV (15:29)
[2024-03-11] MEDS: HYDROMORPHONE 2MG/ML SYRINGE 0.5 MG IV ×2 (15:30→17:49)
--- NOTE | 2024-03-11 16:10 | PC.NURSE ---
report called to SHAHEED Brice @ [facility]
[2024-03-11] MEDS: METRONIDAZ/SOD CHL 500 MG/100 ML PIGGYBACK 100 MG IV (16:19)
[2024-03-11] MEDS: VANCOMYCIN HCL 2,000 MG in 0.9 % SODIUM CHLORIDE 250 ML 125 MG IV (17:48)
== END 2024-03-11 18:13 | disposition short-term general hospital (02) ==
PROVIDERS: Emergency Provider Emergency Medicine; PCP Nurse Practitioner Family
DX: M46.92 Unspecified inflammatory spondylopathy, cervical region (principal); M54.2 Cervicalgia; H92.01 Otalgia, right ear; R51.9 Headache, unspecified; M25.511 Pain in right shoulder; E11.9 Type 2 diabetes mellitus without complications; J44.9 Chronic obstructive pulmonary disease, unspecified; I11.9 Hypertensive heart disease without heart failure; I25.10 Atherosclerotic heart disease of native coronary artery without angina pectoris
CPT/HCPCS: 70450; 70496; 70498; 72125; 80053; 85025; 85610; 85651; 86140; 87040; 96365; 96375; 96376; 99285; J0696; J3370; Q9967

== ENCOUNTER 2024-10-15 17:08 | Emergency (ER) | payer MEDICARE, MEDICAID, SELFPAY ==
[2024-10-15 17:35] VITALS: BP 141/82; PULSE 110; RESP 21; TEMP 36.8; O2SAT 96; BMI 34.7
[2024-10-15 17:49] LABS: UTC Influenza A Antigen Negative (Negative)
[2024-10-15 17:50] LABS: UTC Influenza B Antigen Negative (Negative)
--- NOTE | 2024-10-15 17:53 | XR_ITS ---
PROCEDURE INFORMATION: Exam: XR Chest Exam date and time: 10/15/2024 5:54 PM Age: 64 years old Clinical indication: Shortness of breath TECHNIQUE: Imaging protocol: Radiologic exam of the chest. Views: 2 views. COMPARISON: CR XR CHEST 2V 09/27/2023 12:59 PM FINDINGS: Lungs: No evidence of acute pulmonary disease or infiltrates Pleural spaces: No large effusion or pneumothorax. Heart/Mediastinum: Stable cardiac and mediastinal contours. Vasculature: There are calcifications of the aortic arch. Bones/joints: No evidence of acute osseous abnormalities within the visualized portions of the thoracic spine and ribs. Osseous structures appear appropriate for patient age. IMPRESSION: No dense parenchymal consolidation, pleural effusion, or pneumothorax.
--- NOTE | 2024-10-15 17:54 | EXP.UTC ---
Discharge Plan Disposition Patient Disposition: Home, Self-Care Condition: Good Prescriptions Prescriptions: No Action atorvastatin 40 mg tablet 40 mg PO HS mecobalamin (vitamin B12) 500 mcg tablet,chewable 500 mcg PO DAILY tamsulosin 0.4 MG capsule 0.4 mg PO DAILY glipizide 5 mg tablet extended release 24hr 5 mg PO DAILY Patient Comments: TAKE 1 TABLET BY MOUTH ONCE DAILY WITH FOOD lisinopril 10 mg tablet 10 mg PO DAILY Patient Comments: TAKE 1 TABLET BY MOUTH ONCE DAILY metoprolol tartrate 25 MG tablet 25 mg PO DAILY Mounjaro 10 mg/0.5 mL Pen Injector 10 mg SQ FR gabapentin 800 mg tablet 800 mg PO QID Patient Comments: Take 1 tablet 4 times a day. furosemide 40 mg Tablet 40 mg PO DAILY Qty: 30 0RF aspirin 81 mg Tablet,Delayed Release (Dr/Ec) 81 mg PO DAILY Qty: 30 0RF Jardiance 10 mg tablet 10 mg PO DAILY Qty: 30 0RF Spiriva Respimat 2.5 mcg/actuation mist 1 puff INHALATION DAILY Patient Comments: Inhale 2 puffs every day by inhalation route for 30 days. fluticasone furoate-vilanterol [Breo Ellipta] 200-25 mcg/dose blister with device 1 inh INHALATION DAILY Patient Comments: Inhale 1 puff every day by inhalation route for 90 days. Referrals Follow up/Referrals: Anaya Dugan PA [Primary Care Provider] - See instructions Activity Restrictions/Add. Instructions Additional Instructions/Restrictions: *Monitor Temp, Over the counter Motrin or Tylenol as directed/as needed Tylenol every 4 hours and Motrin every 6 hours (as long as your family doctor has told you that you can take it) for fever or pain. and straight to ER if unable to lower temp less than 101.0 after medication given *Warm salt water gargles may help to soothe the throat *Throat Lozenges? *Warm fluids like tea with honey may help to soothe the throat? *Sleep elevated *Humidifier/Vaporizer Increase Fluids water, Gatorade, powerade, pedialyte,if infant/toddler/child Alternate Tylenol and / or ibuprofen as discussed for fever, aches, chills Follow up IMMEDIATELY with your family doctor for new or worsening Symptoms OR no noticeable improvement over the next 48-72 hours, 911 for difficulty or breathing You or your child area contagious until no fever, aches, chills for 24 hours with medication for symptoms Help Prevent the spread of influenza: ?Wash your hands often. Use soap and water. Wash your hands after you use the bathroom, change a child's diapers, or sneeze. Wash your hands before you prepare or eat food. Use gel hand cleanser that has 60% alcohol, when soap and water are not available. Do not touch your eyes, nose, or mouth unless you have washed your hands first. Cover your mouth when you sneeze or cough. Cough into a tissue or the bend of your arm. If you use a tissue, throw it away immediately and wash your hands. Clean shared items with a germ-killing brass cleaner. Clean table surfaces, doorknobs, and light switches. Do not share towels, silverware, and dishes with people who are sick. Wash bed sheets, towels, silverware, and dishes with soap and water. Wear a mask over your mouth and nose if you are sick. The face mask may help protect others from becoming infected with the flu. Wear the mask when in common areas of your home or if you seek care with a healthcare provider. Stay away from others if you are sick. Stay at home until 24 hours after your fever and symptoms are gone. Follow up IMMEDIATELY for new or worsening symptoms or no Noticeable improvement over the next 48-72 hours. 911 for difficulty breathing or swallowing Clinical Impressions Clinical Impression: Flu-like symptoms Stand Alone Forms Stand Alone Forms: Work/School Release Instructions Patient Instructions: DI for Viral Syndrome, DI for Fever (Symptom) -- Adult Print Language Print Language: Korean Discharge ED Provider: Eileen Busch [facility] HPI General Stated complaint: nausea, vomiting body aches Mode of Arrival: Ambulatory Source of Information: Patient Limitations: No Limitations Time Seen by Provider: 10/15/24 17:55 Description of Symptoms (Recalled from Triage Doc. by RN): PATIENT C/O BODY ACHES, COUGH AND CONGESTION X 2 DAYS HEENT Symptoms (Recalled from RN notes): Yes Resp Symptoms (Recalled from RN notes): Yes Skin Symptoms (Recalled from RN notes): No MS Symptoms (Recalled from RN notes): No Functional Status (Recalled from RN notes): WNL History of Present Illness Provider Complaint: Patient states he hasnt felt well for the last couple of days States that he has been having body aches, chills, sinus congestion, chest congestion, cough States he feels like has the flu States that also he gets pneumonia sometimes but he is not coughing anything up States that 7-10 people today at work was sent home due to having symptoms including him Related Data Home Medications ?Medication ?Instructions ?Recorded ?Confirmed tamsulosin 0.4 mg capsule 0.4 mg PO DAILY Prostate 08/17/21 10/15/24 metoprolol tartrate 25 mg tablet 25 mg PO DAILY High Blood Pressure 01/04/22 10/15/24 atorvastatin 40 mg tablet 40 mg PO HS Cholesterol 07/27/23 10/15/24 mecobalamin (vitamin B12) 500 mcg 500 mcg PO DAILY Supplement 07/27/23 10/15/24 chewable tablet tirzepatide 10 mg/0.5 mL 10 mg SQ FR Weight Loss 07/27/23 10/15/24 subcutaneous pen injector (Roeundelvin) gabapentin 800 mg tablet 800 mg PO QID Pain 07/28/23 10/15/24 glipizide 5 mg tablet, extended 5 mg PO DAILY 09/12/23 10/15/24 release 24 hr lisinopril 10 mg tablet 10 mg PO DAILY 09/12/23 10/15/24 fluticasone furoate 200 1 inh inhalation DAILY 10/15/24 10/15/24 mcg-vilanterol 25 mcg/dose inhalation powder (Breo Ellipta) tiotropium bromide 2.5 1 puff inhalation DAILY 10/15/24 10/15/24 mcg/actuation mist for inhalation (Spiriva Respimat) Previous Rx's ?Medication ?Instructions ?Recorded aspirin 81 mg tablet,delayed 81 mg PO DAILY #30 tabs 07/29/23 release empagliflozin 10 mg tablet 10 mg PO DAILY #30 tabs 07/29/23 (Jardiance) furosemide 40 mg tablet 40 mg PO DAILY #30 tabs 07/29/23 Allergies Allergy/AdvReac Type Severity Reaction Status Date / Time No Known Allergies Allergy Verified 09/12/23 12:13 Worker's Comp Is this a Worker's Comp case?: No [facility] Disclaimer: The information contained in this section may have been updated after the patient was seen, as this information can be updated by other users. Medical History BMI 36.0-36.9,adult BPH (benign prostatic hyperplasia) CAD (coronary artery disease) COPD (chronic obstructive pulmonary disease) Diabetes Hypertension Surgical History History of left heart catheterization Left great toe amputee S/P cholecystectomy Family History Father Brain cancer Mother Breast cancer Social History Smoking Status: Never smoker alcohol intake: never substance use type: denies use current occupational status: employed and retired Travel in the last 8 weeks: None household members: spouse and children housing: house 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 caffeine: Yes virgilio/jew: Roman Catholic Have you lived/traveled outside [place] in past 30 days?: No Contact w/someone who lives/traveled outside [place] past 30 days?: No Exposure to someone with infectious disease in past 14 days?: No Do you have a fever (greater than 100.4 F or 38 C)?: No Have you tested positive for COVID-19: No Exposed to someone with COVID-19 in past 14 days?: No Do you have a sore throat?: Yes Do you have a cough?: No Do you have any weakness?: Yes Do you have any diarrhea?: No Are you experiencing any unusual bleeding?: No Do you have any muscle aches/pain?: Yes Do you have any abdominal pain?: No Are you experiencing loss of taste or smell?: No ROS Obtained: Yes All systems reviewed & no additional complaints except as documented and Yes Systems reviewed as appropriate & no additional complaints except as documented Constitutional Constitutional: Reports system reviewed and no additional complaints, except as documented, Reports as per HPI, Reports body ache, Reports chills and Reports headache(s) ENT Ears, Nose, Mouth, and Throat: Reports system reviewed and no additional complaints, except as documented, Reports as per HPI, Reports headache(s), Reports nasal congestion, Reports sinus pain and Reports sinus pressure Cardiovascular Cardiovascular: Reports system reviewed and no additional complaints, except as documented and Reports as per HPI Respiratory Respiratory: Reports system reviewed and no additional complaints, except as documented, Reports as per HPI, Denies shortness of breath, Reports chest congestion and Reports cough Gastrointestinal Gastrointestingal: Reports system reviewed and no additional complaints, except as documented and as per HPI Neurologic Neurologic: Reports headache(s) Physical Exam General General appearance: alert and in no apparent distress ENT ENT exam: Present mucous membranes moist Expanded ENT Exam Nose exam: Present sinus tenderness Throat exam: Present other (PND noted) Respiratory Respiratory exam: Present normal lung sounds bilaterally; Absent respiratory distress or wheezes Cardiovascular Cardiovascular exam: Present regular rate, normal rhythm and tachycardia Abdominal Exam Abdominal exam: Present soft and normal bowel sounds; Absent distention or tenderness Neurological Exam Neurological exam: Present alert, oriented X3 and normal gait Medical Decision Making Medical Records Screening: Per USPSTF and CDC recommendations, given the prevalence of disease in our region, it is our hospital?s policy to screen for HIV and viral Hepatitis for all patients aged 18 and over and those with ongoing risk factors. Ahsan Inquiry Pt receiving controlled substance: No Ahsan was queried for this patient: No Vital Signs: 10/15/24 17:35 Temperature 98.2 F Temperature Source Oral Pulse Rate [Left Brachial] 110 H Respiratory Rate 21 Blood Pressure [Left Arm] 141/82 H Blood Pressure Mean [Left Arm] 101 Blood Pressure Source [Left Arm] Automatic Cuff Blood Pressure Position [Left Arm] Sitting 02 Sat by Pulse Oximetry 96 Oxygen Delivery Method Room Air Lab Data Lab results reviewed: Yes I reviewed the patient's lab results. Lab Results 10/15/24 17:22: Influenza Type A Ag Negative, Influenza Type B Ag Negative Orders (Tests/Meds): ORDERS Category Date Time Status CXR 2 view (NOT portable) [XR chest 2V] Stat Exams 10/15/24 17:53 Ordered Radiology Data #1: Image(s): Chest Image Reviewed: Yes I have reviewed radiologist's interpretation IMPRESSION: No dense parenchymal consolidation, pleural effusion, or pneumothorax. Medical Decision Narrative: Patient initially denies fever however started having fever in [facility] will do a Mini Panel
[2024-10-15 18:59] LABS: Coronavirus 19, PCR Not Detected (NotDetected); Human Rhinovirus Not Detected (NotDetected); Influenza B, PCR Not Detected (NotDetected); Respiratory Syncytial Virus Not Detected (NotDetected)
[2024-10-15] MEDS: ACETAMINOPHEN 500MG TAB 1000 MG PO (19:02)
[2024-10-15 19:05] VITALS: BP 141/82; PULSE 110; RESP 21; TEMP 36.8; O2SAT 96
[2024-10-16 01:56] LABS: Influenza A, PCR Detected (NotDetected)
== END 2024-10-15 19:17 | disposition home or self-care (01) ==
PROVIDERS: Emergency Provider Nurse Practitioner; PCP Nurse Practitioner Family
DX: R68.89 Other general symptoms and signs (principal); R11.2 Nausea with vomiting, unspecified; M79.10 Myalgia, unspecified site; R05.9 Cough, unspecified; R09.81 Nasal congestion; R51.9 Headache, unspecified
CPT/HCPCS: 71046; 87631; 87804; 99212; G0381